=== PATIENT | female | born 1960 | race Caucasian/White ===

== ENCOUNTER 2016-07-15 17:42 | Emergency (ER) | payer BC ==
[~2016-07-15] VITALS: Ht 154.9 cm; Wt 74.0 kg
[~2016-07-15 17:42] MED LIST: ASPI81TA28 PO; ATV/1 PO; DULO60CA44 PO; GABA-113 PO; HYDR-5688 PO; LEVO100T7 PO; MULT-506 PO; NAPR220T40 PO; OXYC1TAB3 PO; PRAM0.129 PO; VTMD PO; ZOLP5TAB PO
[2016-07-15 17:57] VITALS: TEMP 36.9; Ht 154.9 cm; Wt 74.0 kg
[2016-07-15] MEDS ORDERED: SODIUM CHLORIDE 0.9% 1000ML 1,000 ML IV STA (18:18)
[2016-07-15] MEDS ORDERED: MoRPHine SULFATE 4 MG/ML 1 ML CARP\\VIAL IV STA (18:25)
[2016-07-15] MEDS ORDERED: POTA20TA16 PO (18:33)
[2016-07-15] MEDS ORDERED: TAMO20TA47 PO (18:33)
[2016-07-15] MEDS ORDERED: EFFSR75 PO (18:33)
--- NOTE | 2016-07-15 18:44 | DIAGNOSTIC IMAGING REPORT ---
CHEST ONE VIEW PORTABLE CLINICAL HISTORY: EVALUATE ALTERED MENTAL STATUS/WEAKNESS dyspnea COMPARISON STUDY: 10/06/2013 FINDINGS: Central catheter in the superior vena cava. Lungs are clear. Diaphragms smooth. No evidence for cardiac enlargement. IMPRESSION: No acute process Electronically signed by: Hasmukh Bhatia M.D. 07/15/2016 6:42 PM Dictated Date/Time: 07/15/2016 6:42 PM
[2016-07-15 19:15] LABS: BASO % 0.2 %; BASO ABS # 0.02 K/uL (0-0.2); COMPLETE YES; EOS % 0.7 %; HEMATOCRIT 42.7 % (37-47); IG% 0.2 %; LYMPH % 29.1 %; LYMPH ABS # 3.68 K/uL (1.2-3.4); MEAN CELL VOLUME 89.9 fL (80-100); MEAN CORPUSCULAR HEMOGLOBIN 30.7 pg (25-34); MEAN CORPUSCULAR HGB CONC 34.2 g/dl (32-36); MEAN PLATELET VOLUME 9.5 fL (7.4-10.4); MONO % 6.6 %; NEUT % 63.2 %; PLATELET COUNT 264 K/uL (130-400); RED BLOOD COUNT 4.75 M/uL (4.2-5.4); WHITE BLOOD COUNT 12.66 K/uL (4.8-10.8)
[2016-07-15 19:34] LABS: PROTHROMBIN TIME (PATIENT) 10.4 SECONDS (9.0-12.0)
[2016-07-15 19:35] LABS: ALT/SGPT 21 U/L (12-78); BLOOD UREA NITROGEN 15 mg/dl (7-18); BUN/CREATININE RATIO 21.3 (10-20); CALCIUM 8.9 mg/dl (8.5-10.1); CARBON DIOXIDE 18 mmol/L (21-32); CHLORIDE 112 mmol/L (98-107); CREATININE 0.68 mg/dl (0.60-1.20); GLUCOSE 92 mg/dl (70-99); MAGNESIUM 1.8 mg/dl (1.8-2.4); POTASSIUM 3.4 mmol/L (3.5-5.1); SODIUM 144 mmol/L (136-145)
[2016-07-15 19:43] LABS: ALKALINE PHOSPHATASE 89 U/L (45-117); AST/SGOT 14 U/L (15-37); CKMB/CK RATIO 1.5 (0-3.0)
--- NOTE | 2016-07-15 19:47 | DIAGNOSTIC IMAGING REPORT ---
HEAD CT NONCONTRAST CT DOSE: 767.83 mGy.cm HISTORY: Mental status change EVALUATE ALTERED MENTAL STATUS/WEAKNESS TECHNIQUE: Multiaxial CT images of the head were performed without the use of intravenous contrast. Comparison: None. Findings: The paranasal sinuses and mastoid air cells are clear. The calvarium and skull base are intact. The ventricles and sulci are within normal limits. There is no mass, hematoma, midline shift, or acute infarct. Impression: No acute intracranial abnormality. Electronically signed by: Hasmukh Bhatia M.D. 07/15/2016 7:46 PM Dictated Date/Time: 07/15/2016 7:45 PM
--- NOTE | 2016-07-15 20:39 | EMERGENCY ROOM VISIT NOTE ---
History Report prepared by Lucio: Karolina Gonzales Under the Supervision of: Dr. Ariel Obrien D.O. First contact with patient: 18:03 Chief Complaint: SHORTNESS OF BREATH Stated Complaint: SOB AND WEAKNESS, FAINTED YESTERDAY,REFERRED BY History of Present Illness The patient is a 55 year old female who presents to the Emergency Room with complaints of worsening shortness of breath for the past 2 days. She becomes short of breath with walking small distances in her home. She has also been feeling more weak than usual over the past 2 days. Yesterday the patient had an episode of syncope. Her grandson found her unconscious on the kitchen floor. Her helped her to the living room and she became lightheaded and dizzy with standing up. She was not evaluated after her fall yesterday. She denies any injury from her fall. The patient reports back pain, which is chronic and rates her pain as an 8/10 in severity. She notes loss of appetite as well as nausea and vomiting. The patient is currently taking an oral chemotherapy pill for ovarian cancer. She denies pain or swelling in her legs and black or bloody stools. She called her oncologist today with her symptoms and was advised to come to the ED for further evaluation. Source of History: patient Onset: 2 days ago Position: chest (respiratory) Symptom Intensity: 8/10 Quality: other (shortness of breath) Timing: worsening Modifying Factors (Worsening): exertion Associated Symptoms: + back pain, + nausea, + vomiting, + weakness, No hematochezia, No melena Review of Systems See HPI for pertinent positives & negatives. A total of 10 systems reviewed and were otherwise negative. Past Medical & Surgical Medical Problems: (1) Cancer of ovary (2) Chronic pain syndrome (3) Colon cancer (4) Diarrhea following gastrointestinal surgery (5) Elevated LFTs (6) Hypomagnesemia (7) Hypothyroidism (8) Ileostomy in place (9) Insomnia (10) Nausea (11) Ovarian cancer (12) Restless leg syndrome (13) SOB (shortness of breath) Surgical Problems: (1) H/O ileostomy Family History Diabetes mellitus FH: cancer FH: heart disease Hypertension Kidney stones Seizures Social History Smoking Status: Never Smoker Drug Use: none Marital Status: Housing Status: lives with family Occupation Status: employed Current/Historical Medications Scheduled Aspirin (Aspirin Ec), 81 MG PO DAILY Ergocalciferol (Vitamin D), 1 CAP PO WK Gabapentin (Neurontin), 300 MG PO TID Levothyroxine Sodium (Levothyroxine Sodium), 100 MCG PO DAILY Potassium Ext Rel (Klor-Con), 20 MEQ PO DAILY Pramipexole (Mirapex), 5 MG PO HS Tamoxifen (Nolvadex), 20 MG PO DAILY Venlafaxine Hcl (Effexor Extended Rel), 75 MG PO DAILY Zolpidem Tartrate (Ambien), 5 MG PO HS Scheduled PRN Hydrocodone/Acetaminophen 5MG/325MG ([place] 5MG/325MG), 1 TAB PO BID PRN for Pain Lorazepam (Ativan), 1 MG PO TID PRN for Anxiety Allergies Coded Allergies: Amoxicillin (Verified Allergy, Mild, HIVES, 02/13/16) Clavulanic Acid (Verified Allergy, Mild, HIVES, 02/13/16) Physical Exam Vital Signs Date Time Temp Pulse Resp B/P Pulse Ox O2 Delivery O2 Flow Rate FiO2 07/15/16 19:14 80 189/109 97 207/129 07/15/16 19:10 74 07/15/16 17:57 36.9 87 28 148/87 100 Physical Exam CONSTITUTIONAL/VITAL SIGNS: Reviewed / noted above. GENERAL: Non-toxic in appearance. INTEGUMENTARY: Warm, dry, and [place]. HEAD: Normocephalic. EYES: without scleral icterus or trauma. ENT/OROPHARYNX: clear and moist. LYMPHADENOPATHY/NECK: Is supple without lymphadenopathy or meningismus. RESPIRATORY: Lungs clear and equal. CARDIOVASCULAR: Regular rate and rhythm. GI/ABDOMEN: Soft and nontender. No organomegaly or pulsatile mass. No rebound or guarding. Normal bowel sounds. EXTREMITIES: Warm and well perfused. BACK: No CVA tenderness. NEUROLOGICAL: Intact without focal deficits. PSYCHIATRIC: normal affect. MUSCULOSKELETAL: Normally developed with good muscle tone. Medical Decision & Procedures ER Provider Diagnostic Interpretation: Radiology results as stated below per my review and radiologist interpretation: HEAD CT NONCONTRAST CT DOSE: 767.83 mGy.cm HISTORY: Mental status change EVALUATE ALTERED MENTAL STATUS/WEAKNESS TECHNIQUE: Multiaxial CT images of the head were performed without the use of intravenous contrast. Comparison: None. Findings: The paranasal sinuses and mastoid air cells are clear. The calvarium and skull base are intact. The ventricles and sulci are within normal limits. There is no mass, hematoma, midline shift, or acute infarct. Impression: No acute intracranial abnormality. Electronically signed by: Hasmukh Bhatia M.D. 07/15/2016 7:46 PM Dictated Date/Time: 07/15/2016 7:45 PM CHEST ONE VIEW PORTABLE CLINICAL HISTORY: EVALUATE ALTERED MENTAL STATUS/WEAKNESS dyspnea COMPARISON STUDY: 10/06/2013 FINDINGS: Central catheter in the superior vena cava. Lungs are clear. Diaphragms smooth. No evidence for cardiac enlargement. IMPRESSION: No acute process Electronically signed by: Hasmukh Bhatia M.D. 07/15/2016 6:42 PM Dictated Date/Time: 07/15/2016 6:42 PM Laboratory Results 07/15/16 19:05 Red Blood Count 4.75, Mean Corpuscular Volume 89.9, Mean Corpuscular Hemoglobin 30.7, Mean Corpuscular Hemoglobin Concent 34.2, Mean Platelet Volume 9.5, Neutrophils (%) (Auto) 63.2, Lymphocytes (%) (Auto) 29.1, Monocytes (%) (Auto) 6.6, Eosinophils (%) (Auto) 0.7, Basophils (%) (Auto) 0.2, Neutrophils # (Auto) 8.02, Lymphocytes # (Auto) 3.68, Monocytes # (Auto) 0.83, Eosinophils # (Auto) 0.09, Basophils # (Auto) 0.02 07/15/16 19:05 Test 07/15/16 19:05 White Blood Count 12.66 K/uL (4.8-10.8) Red Blood Count 4.75 M/uL (4.2-5.4) Hemoglobin 14.6 g/dL (12.0-16.0) Hematocrit 42.7 % (37-47) Mean Corpuscular Volume 89.9 fL (80-100) Mean Corpuscular Hemoglobin 30.7 pg (25-34) Mean Corpuscular Hemoglobin Concent 34.2 g/dl (32-36) Platelet Count 264 K/uL (130-400) Mean Platelet Volume 9.5 fL (7.4-10.4) Neutrophils (%) (Auto) 63.2 % Lymphocytes (%) (Auto) 29.1 % Monocytes (%) (Auto) 6.6 % Eosinophils (%) (Auto) 0.7 % Basophils (%) (Auto) 0.2 % Neutrophils # (Auto) 8.02 K/uL (1.4-6.5) Lymphocytes # (Auto) 3.68 K/uL (1.2-3.4) Monocytes # (Auto) 0.83 K/uL (0.11-0.59) Eosinophils # (Auto) 0.09 K/uL (0-0.5) Basophils # (Auto) 0.02 K/uL (0-0.2) RDW Standard Deviation 45.2 fL (36.4-46.3) RDW Coefficient of Variation 13.7 % (11.5-14.5) Immature Granulocyte % (Auto) 0.2 % Immature Granulocyte # (Auto) 0.02 K/uL (0.00-0.02) Prothrombin Time 10.4 SECONDS (9.0-12.0) Prothromb Time International Ratio 1.0 (0.9-1.1) Activated Partial Thromboplast Time 51.8 SECONDS (21.0-31.0) Partial Thromboplastin Ratio 2.0 D-Dimer 300 ug/L FEU (0-500) Anion Gap 14.0 mmol/L (3-11) Est Creatinine Clear Calc Drug Dose 86.0 ml/min Estimated GFR () 114.1 Estimated GFR (Non- 98.5 BUN/Creatinine Ratio 21.3 (10-20) Calcium Level 8.9 mg/dl (8.5-10.1) Magnesium Level 1.8 mg/dl (1.8-2.4) Total Bilirubin 0.4 mg/dl (0.2-1) Direct Bilirubin 0.1 mg/dl (0-0.2) Aspartate Amino Transf (AST/SGOT) 14 U/L (15-37) Alanine Aminotransferase (ALT/SGPT) 21 U/L (12-78) Alkaline Phosphatase 89 U/L (45-117) Total Creatine Kinase 133 U/L (26-192) Creatine Kinase MB 2.0 ng/ml (0.5-3.6) Creatine Kinase MB Ratio 1.5 (0-3.0) Troponin I < 0.015 ng/ml (0-0.045) Pro-B-Type Natriuretic Peptide 57 pg/ml (0-900) Total Protein 6.6 gm/dl (6.4-8.2) Albumin 3.4 gm/dl (3.4-5.0) Lipase 328 U/L (73-393) Thyroid Stimulating Hormone (TSH) 3.310 uIu/ml (0.300-4.500) Laboratory results as stated above per my review. Medications Administered Medications (Trade) Dose Ordered Sig/Emma Route Start Time Stop Time Status Last Admin Dose Admin Sodium Chloride (Nss 1000ml) 1,000 ml @ 999 mls/hr Q1H1M STAT IV 07/15/16 18:18 07/15/16 19:18 DC 07/15/16 18:18 999 MLS/HR Morphine Sulfate (MoRPHine SULFATE INJ) 4 mg NOW STAT IV 07/15/16 18:25 07/15/16 18:26 DC 07/15/16 19:14 4 MG ECG Indication: SOB/dyspnea Rate (beats per minute): 78 Rhythm: normal sinus Findings: no acute ischemic change, no ectopy ED Course 1803: Previous medical records were reviewed. The patient was evaluated in room B4B. A complete history and physical examination was performed. 1817: NSS 1000 ml @ 999 mls/hr IV 1824: Morphine sulfate 4 mg IV 2038: I reassessed the patient at this time. She is feeling better and resting comfortably. I discussed the results and treatment plan with the patient. I answered all pertaining questions that she had. She expressed understanding and verbalized agreement. The patient will be discharged home. Medical Decision Differential includes acute coronary syndrome, myocardial infarction, CVA, TIA, anemia, infection, pneumonia, UTI, pyelonephritis, poor nutrition, dehydration, electrolyte disturbance,hypoglycemia. This is a 55-year-old female who presents to the ED with a chief complaint of feeling weak and having fainted yesterday. The patient reports dyspnea on exertion as well as some generalized weakness. Further details listed above. Vital signs are stable. Physical exam essentially normal. Chest x-ray did not show acute disease. CT scan of the brain was negative for acute disease. CBC is unremarkable. D-dimer is negative. Troponin is negative. Complete metabolic panel was unremarkable. Lipase is negative. TSH is normal. The patient was treated with IV fluids and IV morphine for her chronic back pain. She was told results the test. She is felt to be stable for discharge. Impression Primary Impression: Dyspnea Additional Impression: Syncope Scribe Attestation The scribe's documentation has been prepared under my direction and personally reviewed by me in its entirety. I confirm that the note above accurately reflects all work, treatment, procedures, and medical decision making performed by me. Departure Information Dispostion Home / Self-Care Referrals Arun Chapman M.D. (PCP) Forms HOME CARE DOCUMENTATION FORM, IMPORTANT VISIT INFORMATION Patient Instructions My [facility], Syncope Additional Instructions Follow-up with your doctor for further care and evaluation in 1-2 days. Return to the emergency department for worsening or new symptoms or any concerns. You have been examined and treated today on an emergency basis only. This is not a substitute for, or an effort to provide, complete comprehensive medical care. It is impossible to recognize and treat all injuries or illnesses in a single emergency department visit. It is therefore important that you follow up closely with your doctor. Call as soon as possible for an appointment. Problem Qualifiers Primary Impression: Dyspnea Dyspnea type: unspecified Qualified Codes: R06.00 - Dyspnea, unspecified Additional Impression: Syncope Syncope type: unspecified Qualified Codes: R55 - Syncope and collapse
[2016-07-15 21:03] VITALS: BP 157/91; PULSE 80; O2SAT 99
== END 2016-07-15 21:03 | disposition home or self-care (01) ==
LOC: C.EDB 17:43
DX: R06.00 Dyspnea, unspecified (principal); R55 Syncope and collapse; G89.29 Other chronic pain; E03.9 Hypothyroidism, unspecified; Z93.2 Ileostomy status; Z79.82 Long term (current) use of aspirin

== ENCOUNTER → 2016-07-30 | Outpatient (CLI) | payer BC ==
[~2016-07-30] MED LIST changes: -DULO60CA44 PO; +EFFSR75 PO; -MULT-506 PO; -NAPR220T40 PO; -OXYC1TAB3 PO; +POTA20TA16 PO; +TAMO20TA47 PO
--- NOTE | 2016-07-30 12:21 | DIAGNOSTIC IMAGING REPORT ---
PET/CT HISTORY: Ovarian carcinoma OVARIAN CA TECHNIQUE: PET/CT was performed from the base of the skull through the pelvis following the intravenous administration of 15.2 mCi of F18-FDG. Non-contrast CT imaging was performed over the same range without breath-hold for attenuation correction of PET images and anatomic correlation, but not for primary interpretation as it is not of standard diagnostic quality. CT DOSE: COMPARISON: 01/28/2016 FINDINGS: HEAD AND NECK: There is no FDG-avid disease or significant lymphadenopathy in the imaged portions of the head and the neck. CHEST: There is no FDG-avid disease in the chest. There is no axillary, mediastinal, or hilar lymphadenopathy. There is no pleural or pericardial effusion. There is no air-space disease or suspicious lung nodule. ABDOMEN/PELVIS: Below the diaphragm, tracer is distributed physiologically in the gastrointestinal and genitourinary tracts. There is no significant lymphadenopathy and no FDG-avid disease. Stable postoperative changes. Foci of increased activity previously described have resolved MUSCULOSKELETAL: There is no FDG-avid or destructive bone lesion. IMPRESSION: There is no definite evidence of recurrent FDG-avid disease. Improved exam from the prior study. Electronically signed by: Hasmukh Bhatia M.D. 07/30/2016 12:19 PM Dictated Date/Time: 07/30/2016 12:11 PM
== END | disposition home or self-care (01) ==
LOC: C.PET 09:24
PROVIDERS: ATTEND Nurse Practitioner
DX: C56.9 Malignant neoplasm of unspecified ovary (principal)

== ENCOUNTER → 2016-08-26 | Outpatient (CLI) | payer BC ==
[~2016-08-26] MED LIST changes: -TAMO20TA47 PO; +TAMO20TA9 PO
== END | disposition home or self-care (01) ==
LOC: C.MAMM 13:38
PROVIDERS: ATTEND Nurse Practitioner
DX: M81.0 Age-related osteoporosis without current pathological fracture (principal); M85.851 Other specified disorders of bone density and structure, right thigh; M85.852 Other specified disorders of bone density and structure, left thigh; M85.88 Other specified disorders of bone density and structure, other site

== ENCOUNTER → 2017-03-05 | Outpatient (CLI) | payer BC ==
[~2017-03-05] MED LIST changes: +OPTIRAY 320 IV PRN
--- NOTE | 2017-03-05 15:09 | DIAGNOSTIC IMAGING REPORT ---
CHEST CT WITH CONTRAST HISTORY: Follow-up study in a patient with ovarian carcinoma OVARIAN CA TECHNIQUE: Multiaxial CT images of the chest were performed following the intravenous administration of contrast. A dose lowering technique was utilized adhering to the principles of ALARA. COMPARISON: PET CT 07/30/2016, thoracic spine CT 02/13/2016. FINDINGS: Thyroid is homogeneous. Bilateral breast calcifications are noted which appear round and possibly dystrophic. No pathologic adenopathy about the chest identified. Heart is normal in size without pericardial effusion. There is a right internal jugular [id number] catheter with distal tip terminating within the SVC, just superior to the cavoatrial junction. Mild atherosclerotic plaquing of the aorta without dissection or aneurysm. The opacified pulmonary arterial tree is unremarkable. Mild biapical pleural-parenchymal scarring. Subcentimeter granuloma of the right lung apex. No pneumothorax, pleural effusion or focal airspace consolidation. No suspicious pulmonary nodules or pulmonary masses identified to suggest metastatic disease. The central airways are patent. Prior cholecystectomy. Mild intrahepatic and extrahepatic biliary ductal dilation is likely secondary to postcholecystectomy state. Postsurgical changes of prior gastric bypass. No acute abnormality of the imaged upper abdomen. No suspicious lytic or blastic bony lesions to suggest metastasis. Multilevel endplate spurring of the spine. IMPRESSION: 1. No acute intrathoracic abnormality identified. 2. No evidence of metastatic disease within the chest. 3. No suspicious lytic or blastic lesions to suggest bony metastasis. Electronically signed by: Shaun Donohue M.D. 03/05/2017 3:07 PM Dictated Date/Time: 03/05/2017 3:01 PM
--- NOTE | 2017-03-05 15:17 | DIAGNOSTIC IMAGING REPORT ---
CT SCAN OF THE ABDOMEN AND PELVIS WITH IV CONTRAST CLINICAL HISTORY: Ovarian cancer. COMPARISON STUDY: Abdominal CT dated 02/13/2016. PET/CT dated 07/30/2016. TECHNIQUE: Following the IV administration of 9 cc of Optiray 320, CT scan of the abdomen and pelvis is performed from the lung bases to the proximal femora. Images are reviewed in the axial, sagittal, and coronal planes. IV contrast was administered without complication. A dose lowering technique was utilized adhering to the principles of ALARA. CT DOSE: 892.55 mGy.cm FINDINGS: Lung bases: The heart is normal in size and without pericardial effusion. The lung bases are clear. Liver: The contrast-enhanced liver is normal in size and contour. The liver demonstrates diffusely diminished attenuation consistent with hepatic steatosis. There is mild central intrahepatic biliary ductal dilatation. The hepatic veins and portal veins are patent. Gallbladder: Surgically absent noting clips in the gallbladder fossa. Spleen: Normal in size and attenuation. Pancreas: Unremarkable. Adrenal glands: Unremarkable. Kidneys: The contrast enhanced kidneys are normal in size and without hydronephrosis. The kidneys enhance symmetrically. Abdominal vasculature: The abdominal aorta is normal in course and caliber. Stomach and bowel: There is a small hiatal hernia. There are postoperative changes from left colon resection with colocolonic anastomosis. Small bowel anastomosis are also seen within the left upper quadrant of the ventral pelvis. Findings suggest previous gastric bypass surgery. No bowel obstruction is seen. There is moderate constipation. The appendix is not identified and reported surgically absent. Peritoneum and retroperitoneum: Findings suggest previous omentectomy. There is laxity of the ventral abdominal wall with protrusion of bowel loops. There is no intraperitoneal free air or abdominal ascites. There is a 2.0 x 1.3 cm lesion seen posterior to the left psoas muscle on axial image #218. This has decreased in size from 02/13/2016. No definite peritoneal implants are identified. Lymphadenopathy: Prominent mesenteric lymph nodes are nonspecific and measure up to 10 mm in short axis (axial image #168). Pelvic viscera: The bladder is normal as visualized. The uterus is surgically absent. No adnexal lesion is seen. Skeletal structures: The skeletal structures are osteopenic. No lytic or blastic lesions are seen. Mild to moderate lumbosacral spondylosis is observed. There is a mild superior endplate compression deformity of L3. There are healed right-sided rib fractures. IMPRESSION: 1. A lesion posterior to the left psoas muscle has modestly decreased in size from 02/13/2016. 2. No additional findings are concerning for metastatic disease in the abdomen or pelvis. 3. Prominent mesenteric lymph nodes measure up to 10 mm in short axis are nonspecific. 4. Extensive postoperative changes as above. No bowel obstruction is seen. 5. Moderate constipation. 6. Hepatic steatosis. 7. Additional findings as above. Electronically signed by: Howie Burgess M.D. 03/05/2017 3:16 PM Dictated Date/Time: 03/05/2017 3:06 PM
[2017-03-05 16:42] LABS: BASO % 0.2 %; BASO ABS # 0.02 K/uL (0-0.2); COMPLETE YES; HEMATOCRIT 35.8 % (37-47); IG% 0.2 %; LYMPH % 31.5 %; LYMPH ABS # 3.32 K/uL (1.2-3.4); MEAN CELL VOLUME 88.4 fL (80-100); MEAN CORPUSCULAR HEMOGLOBIN 28.9 pg (25-34); MEAN CORPUSCULAR HGB CONC 32.7 g/dl (32-36); MEAN PLATELET VOLUME 9.5 fL (7.4-10.4); MONO % 7.4 %; NEUT % 59.7 %; PLATELET COUNT 283 K/uL (130-400); RED BLOOD COUNT 4.05 M/uL (4.2-5.4); WHITE BLOOD COUNT 10.55 K/uL (4.8-10.8)
[2017-03-05 17:08] LABS: ALT/SGPT 26 U/L (12-78); BLOOD UREA NITROGEN 13 mg/dl (7-18); BUN/CREATININE RATIO 16.6 (10-20); CALCIUM 8.2 mg/dl (8.5-10.1); CARBON DIOXIDE 28 mmol/L (21-32); CHLORIDE 101 mmol/L (98-107); CREATININE 0.77 mg/dl (0.60-1.20); GLUCOSE 79 mg/dl (70-99); MAGNESIUM 1.5 mg/dl (1.8-2.4); POTASSIUM 2.9 mmol/L (3.5-5.1); SODIUM 136 mmol/L (136-145)
[2017-03-05 17:11] LABS: ALB/GLOB RATIO 0.9 (0.9-2); ALKALINE PHOSPHATASE 93 U/L (45-117); AST/SGOT 14 U/L (15-37)
== END | disposition home or self-care (01) ==
LOC: C.CTS 14:25
PROVIDERS: ATTEND Nurse Practitioner Family
DX: C56.9 Malignant neoplasm of unspecified ovary (principal); K59.00 Constipation, unspecified; K76.0 Fatty (change of) liver, not elsewhere classified; Z90.49 Acquired absence of other specified parts of digestive tract; Z90.710 Acquired absence of both cervix and uterus

== ENCOUNTER → 2017-09-07 | Outpatient (CLI) | payer BC ==
[~2017-09-07] MED LIST changes: +POTA-639 PO; -POTA20TA16 PO; +PRAM0.1212 PO; -PRAM0.129 PO
--- NOTE | 2017-09-07 16:10 | DIAGNOSTIC IMAGING REPORT ---
CT (CHEST) THORAX WITH CT DOSE: HISTORY: Ovarian carcinoma OVARIAN CA TECHNIQUE: Multiaxial CT images of the chest were performed following the intravenous administration of contrast. A dose lowering technique was utilized adhering to the principles of ALARA. COMPARISON: 03/05/2017 FINDINGS: Central catheter is in the superior vena cava. No significant hilar or mediastinal adenopathy. Lungs are considered clear. Prior gastroplasty. No significant pulmonary nodularity. At least 3. Old healed rib fractures. No lytic or blastic process. Mild degenerative change of the thoracic spine. IMPRESSION: No evidence for metastatic disease. No change from the prior study. The above report was generated using voice recognition software. It may contain grammatical, syntax or spelling errors. Electronically signed by: Hasmukh Bhatia M.D. 09/07/2017 4:09 PM Dictated Date/Time: 09/07/2017 4:07 PM
--- NOTE | 2017-09-07 16:18 | DIAGNOSTIC IMAGING REPORT ---
CT SCAN OF THE ABDOMEN AND PELVIS WITH IV CONTRAST CLINICAL HISTORY: Ovarian cancer. COMPARISON STUDY: Abdominal CT dated 03/05/2017. PET/CT dated 07/30/2016. TECHNIQUE: Following the IV administration of 95 cc of Optiray 320, CT scan of the abdomen and pelvis is performed from the lung bases to the proximal femora. Images are reviewed in the axial, sagittal, and coronal planes. IV contrast was administered without complication. A dose lowering technique was utilized adhering to the principles of ALARA. CT DOSE: 1142.01 mGy.cm FINDINGS: Lung bases: The heart is normal in size and without pericardial effusion. The lung bases are clear. Liver: The contrast-enhanced liver is normal in size and contour. The liver demonstrates diffusely diminished attenuation consistent with hepatic steatosis. There is mild central intrahepatic biliary ductal dilatation. The hepatic veins and portal veins are patent. Gallbladder: Surgically absent noting clips in the gallbladder fossa. Spleen: Normal in size and attenuation. Pancreas: Unremarkable. Adrenal glands: Unremarkable. Kidneys: The contrast enhanced kidneys demonstrate mild cortical atrophy and are without hydronephrosis. The kidneys enhance symmetrically. Abdominal vasculature: The abdominal aorta is normal in course and caliber. Stomach and bowel: There is a small hiatal hernia. There are postoperative changes from left colon resection with colocolonic anastomosis. A small bowel anastomosis are also seen within the left ventral pelvis. Findings also suggest previous gastric bypass surgery. No bowel obstruction is seen. There is moderate fecal retention in the remaining right colon. The appendix is not identified and reported surgically absent. Peritoneum and retroperitoneum: There is a midline scar with evidence of previous omentectomy. There is laxity of the ventral abdominal wall with protrusion of bowel loops. There is no intraperitoneal free air or abdominal ascites. There is unchanged appearance of a 2.0 x 1.4 cm lesion seen posterior to the left psoas muscle on axial image #211 (previously measured 2.0 x 1.3 cm). No definite peritoneal implants are identified. Lymphadenopathy: Prominent mesenteric lymph nodes are nonspecific and measure up to 10 mm in short axis (axial image #168). Pelvic viscera: Although decompressed, the bladder wall is thickened and hyperemic and there is pericystic inflammation. The uterus is surgically absent. No adnexal lesion is seen. Skeletal structures: The skeletal structures are osteopenic. No lytic or blastic lesions are seen. Mild to moderate lumbosacral spondylosis is observed. There is a mild chronic superior endplate compression deformity of L3. There are healed right-sided rib fractures. IMPRESSION: 1. There is no evidence of progressive metastatic disease as compared to 03/05/2017. No peritoneal implants are identified. 2. The lesion posterior to the left psoas muscle has not significantly changed from 03/05/2017. 3. The bladder wall is thickened and hyperemic and there is pericystic inflammation. Correlate clinically and with urinalysis for evidence of cystitis. 4. Postoperative findings as above. No bowel obstruction is seen. 5. Moderate fecal retention is noted in the remaining right colon. 6. Hepatic steatosis. 7. Additional findings as above. Electronically signed by: Howie Burgess M.D. 09/07/2017 4:16 PM Dictated Date/Time: 09/07/2017 4:07 PM
== END | disposition home or self-care (01) ==
LOC: C.CTS 15:24
PROVIDERS: ATTEND Nurse Practitioner Family
DX: C56.9 Malignant neoplasm of unspecified ovary (principal); R93.41 Abnormal radiologic findings on diagnostic imaging of renal pelvis, ureter, or bladder; K59.00 Constipation, unspecified; K76.0 Fatty (change of) liver, not elsewhere classified; Z98.890 Other specified postprocedural states

== ENCOUNTER → 2017-09-29 | Outpatient (CLI) | payer BC ==
[~2017-09-29] MED LIST changes: -OPTIRAY 320 IV PRN
[2017-09-29 13:32] LABS: BASO % 0.4 %; BASO ABS # 0.04 K/uL (0-0.2); EOS % 1.6 %; EOS ABS # 0.16 K/uL (0-0.5); HEMATOCRIT 35.2 % (37-47); HEMOGLOBIN 11.4 g/dL (12.0-16.0); IG# 0.03 K/uL (0.00-0.02); LYMPH % 31.6 %; LYMPH ABS # 3.09 K/uL (1.2-3.4); MEAN CELL VOLUME 79.8 fL (80-100); MEAN CORPUSCULAR HEMOGLOBIN 25.9 pg (25-34); MEAN PLATELET VOLUME 8.7 fL (7.4-10.4); MONO % 7.2 %; NEUT % 58.9 %; NEUT ABS # 5.77 K/uL (1.4-6.5); PLATELET COUNT 341 K/uL (130-400); RED CELL DISTRIBUTION WIDTH CV 16.6 % (11.5-14.5); RED CELL DISTRIBUTION WIDTH SD 48.7 fL (36.4-46.3); WHITE BLOOD COUNT 9.79 K/uL (4.8-10.8)
[2017-09-29 13:42] LABS: MEAN CORPUSCULAR HGB CONC 32.4 g/dl (32-36)
[2017-09-29 13:55] LABS: ALBUMIN 3.1 gm/dl (3.4-5.0); AST/SGOT 15 U/L (15-37); BLOOD UREA NITROGEN 9 mg/dl (7-18); CALCIUM 8.2 mg/dl (8.5-10.1); CARBON DIOXIDE 24 mmol/L (21-32); CREATININE 0.94 mg/dl (0.60-1.20); GLUCOSE 136 mg/dl (70-99); POTASSIUM 3.1 mmol/L (3.5-5.1); SODIUM 138 mmol/L (136-145)
[2017-09-29 14:10] LABS: ALKALINE PHOSPHATASE 118 U/L (45-117); ALT/SGPT 21 U/L (12-78); TOTAL PROTEIN 7.2 gm/dl (6.4-8.2)
== END | disposition home or self-care (01) ==
LOC: C.LABSPEC 13:18
PROVIDERS: ATTEND Nurse Practitioner Family
DX: C56.9 Malignant neoplasm of unspecified ovary (principal)

== ENCOUNTER 2019-09-09 19:09 | Inpatient (IN) ==
[2019-09-09] MEDS ORDERED: SODIUM CHLORIDE 0.9% 1000ML 1,000 ML IV ONE (19:41)
[2019-09-09] MEDS ORDERED: HYDROmorphone INJ 0.5 MG/0.5 ML SYR IV STA ×2 (19:41→20:36)
[2019-09-09 20:09] LABS: Basophils # (auto) 0.02 K/uL (0-0.2); Basophils % (auto) 0.2 %; Eosinophils # (auto) 0.06 K/uL (0-0.5); Eosinophils % (auto) 0.7 %; Hematocrit (blood only) 37.1 % (37-47); Hemoglobin 11.8 g/dL (12.0-16.0); Immature Granulocytes # (auto) 0.01 K/uL (0.00-0.02); Immature Granulocytes % (auto) 0.1 %; Lymphocytes # (auto) 1.42 K/uL (1.2-3.4); Lymphocytes % (auto) 16.9 %; Mean Corpuscular Hemoglobin 28.2 pg (25-34); Mean Corpuscular Hgb Conc 31.8 g/dL (32-36); Mean Corpuscular Volume 88.5 fL (80-100); Mean Platelet Volume 9.3 fL (7.4-10.4); Monocytes # (auto) 0.43 K/uL (0.11-0.59); Monocytes % (auto) 5.1 %; Neutrophils # (auto) 6.47 K/uL (1.4-6.5); Platelet Count 258 K/uL (130-400); RDW Coefficient of Variation 15.7 % (11.5-14.5); RDW Standard Deviation 50.4 fL (36.4-46.3); Red Blood Count 4.19 M/uL (4.2-5.4); White Blood Count 8.41 K/uL (4.8-10.8)
[2019-09-09 20:20] LABS: Partial Thromboplastin Time 27.3 Seconds (21.0-31.0); Prothrombin Time 10.5 Seconds (9.0-12.0)
[2019-09-09] MEDS: PANTOprazole 40 MG in DEXTROSE 5% 100 ML IV SCH (20:25)
[2019-09-09 20:26] LABS: Alanine Aminotransferase 66 U/L (12-78); Albumin Level 3.1 gm/dl (3.4-5.0); Aspartate Aminotransferase 28 U/L (15-37); Blood Urea Nitrogen 15 mg/dl (7-18); Calcium 8.7 mg/dl (8.5-10.1); Carbon Dioxide 31 mmol/L (21-32); Chloride 105 mmol/L (98-107); Est GFR (African American) 102.8; Est GFR (Non-African American) 88.7; Glucose 97 mg/dl (70-99); Lipase 72 U/L (73-393); Potassium 4.1 mmol/L (3.5-5.1); Sodium 140 mmol/L (136-145)
[2019-09-09 20:29] LABS: Alkaline Phosphatase 126 U/L (45-117); Bilirubin,Total 0.1 mg/dl (0.2-1); Globulin 3.2 gm/dl (2.5-4.0); Total Protein 6.3 gm/dl (6.4-8.2)
--- NOTE | 2019-09-09 20:33 | XRay Report ---
XR chest 1V portable CLINICAL HISTORY: dizziness COMPARISON STUDY: Chest radiograph October 31, 2018. FINDINGS: Lung volumes are normal. Lungs are clear. There is no pneumothorax or pleural effusion. Car diac size is normal. Mediastinal contours are normal. There is no evidence for pulmonary edema. Right internal jugular [id number] is unchanged in position. IMPRESSION: No acute cardiopulmonary findings. ACT 112: Negative or not required by law. Electronically signed by: Austin Davidson M.D. 09/09/2019 8:31 PM
[2019-09-09] MEDS ORDERED: HYDROmorphone INJ 1 MG/ML SYRINGE IV STA (22:12)
[2019-09-09] MEDS ORDERED: IOVERSOL 100ml IV PRN (22:21)
--- NOTE | 2019-09-09 22:44 | CT Scan Report ---
CT OF THE ABDOMEN AND PELVIS WITH CONTRAST CLINICAL HISTORY: Abdominal pain. Rectal bleed. History of ovarian cancer. COMPARISON STUDY: CT of the abdomen and pelvis July 23, 2018. TECHNIQUE: Following IV administration of 94 mL of Optiray-320, axial images of the abdomen and pelvi s were obtained from the lung bases to the proximal femurs. Images were reviewed in the axial, sagitt al, and coronal planes. IV contrast was administered without complication. Automated exposure contro l was utilized for the study. A dose lowering technique was utilized adhering to the principles of A TAMEKA. Oral contrast was administered. CT DOSE: 440.46 mGy.cm FINDINGS: Lung bases are unremarkable. No pneumatosis, free air or portal venous gas is present. Bili ame ductal dilatation is unchanged since CT of July 23, 2018 likely related to cholecystectomy. Libra ent is status post Caro-en-Y gastric bypass. There is no evidence for a bowel obstruction. Multiple b owel anastomoses are noted. Sensitivity for detection of mucosal lesions is diminished given CT techn ique but none are identified. Oral contrast reaches the colon. The adrenal glands, spleen and kidneys are unremarkable. There is no hydronephrosis. There is no peripancreatic infiltration. A few left up per quadrant abdominal wall nodules are noted. These have slightly increased in size since CT of 2018. The largest measures 2.3 x 1.4 cm. A previous measured 2.8 x 1.1 cm. A few tiny peritonea l nodules within the anterior abdomen are similar to prior exam. An irregular nodular focus along the lateral aspect of the left psoas muscle is similar to prior exam, measuring 2.8 cm. There is no asci neil. No suspicious osseous lesions are present. Major vasculature is patent. IMPRESSION: 1. No acute process within the abdomen or pelvis. Stable postoperative findings. No evidence for a clement wel obstruction. 2. Slight increase in size of the left anterior abdominal wall lesions which favor tumor implants. No significant change in several tiny peritoneal nodules and an irregular lesion along the lateral left psoas muscle. ACT 112: Negative or not required by law. Electronically signed by: Austin Davidson M.D. 09/09/2019 10:43 PM
[2019-09-09 22:54] LABS: Appearance Urine Clear (Clear); Bilirubin Urine Negative (Negative); Blood Urine Negative (Negative); Color Urine Yellow; Glucose Urine UA Negative (Negative); Ketones Urine Negative (Negative); Leukocyte Esterase Urine Negative (Negative); Nitrite Urine Negative (Negative); Protein Urine Negative (Negative); Specific Gravity Urine 1.013 (1.000-1.030); Urobilinogen Urine Negative (Negative); pH Urine 7.5 (4.5-7.5)
--- NOTE | 2019-09-09 23:22 | Emergency Department Note ---
History of Present Illness General Chief Complaint: Rectal Bleed Stated Complaint: blood in stool, headache, confusion Source: patient Mode of arrival: ambulatory Limitations: no limitations History of Present Illness Provider Complaint: abdominal pain and other (rectal bleeding) Onset (ago): 8 hour(s) Pain Consistency: constant Location: diffuse Radiation: none Migration to: no migration Severity: severe Maximum Pain Intensity: 7 Current Pain Intensity: 7 Quality: + cramping, + stabbing and + sharp Relieved By: + nothing Exacerbated By: + eating and + movement Context: + history of similar episodes Associated Symptoms: + nausea, + hematochezia and + anorexia Treatments prior to arrival: prescription analgesics This 59-year-old female patient with significant past medical history of metastatic ovarian cancer presents to the emergency department today, ambulatory, complaining of blood in her stool, lightheadedness, dizziness as well as shortness of breath. The patient states she had a bloody bowel movement at approximately 2 PM. At 5 PM, she developed lightheadedness, dizziness, shortness of breath. The patient does report a history of blood in her stool associated with a stomach ulcer approximately 1 year ago. She states she was taken to emergency surgery in [place] at that time. The patient states previously, the blood was a maroon color, but now she notes bright red blood in the stool. The patient does report lower and a diffuse abdominal pain which is similar nature to her normal pain, but seems to be worse today. The patient states 3 weeks ago, she was admitted to the cancer treatment Center [facility] in [place] for 4 to 5 days for a partial small bowel obstruction. The patient states she did not have any surgical intervention, denies any other treatment. She states the small bowel obstruction resolved itself. The patient does states she was straining to have a bowel movement earlier this evening. She has been taking her 10 mg oxycodone without relief of the pain. She denies any recent fever, nausea, vomiting, weakness, chest pain, illness, or other concerning symptoms. Home Medications Home Medications Medication Instructions Recorded Confirmed Type Cancer Medication 1 dose IM MONTHLY 07/23/18 09/09/19 History acetaminophen [Tylenol] 1,625 mg PO UD 07/23/18 09/09/19 History ergocalciferol (vitamin D2) 50,000 unit PO WK 07/23/18 09/09/19 History [Vitamin D2] lorazepam 1 mg SUBLINGUAL TID PRN 07/23/18 09/09/19 History magnesium oxide 400 mg PO QAM 07/23/18 09/09/19 History ondansetron HCl 8 mg PO TID PRN 07/23/18 09/09/19 History potassium chloride [Klor-Con] 20 meq PO QAM 07/23/18 09/09/19 History levothyroxine [Synthroid] 88 mcg PO DAILY 09/09/19 09/09/19 History linaclotide [Linzess] 145 mcg PO DAILY 09/09/19 09/09/19 History lisinopril 20 mg PO DAILY 09/09/19 09/09/19 History oxycodone 10 mg PO Q6H PRN 09/09/19 09/09/19 History pramipexole 0.125 mg PO TID 09/09/19 09/09/19 History rivaroxaban [Xarelto] 20 mg PO DAILY 09/09/19 09/09/19 History venlafaxine 150 mg PO DAILY 09/09/19 09/09/19 History Allergies Allergy/AdvReac Type Severity Reaction Status Date / Time amoxicillin Allergy Mild HIVES Verified 09/09/19 21:02 clavulanic acid Allergy Mild HIVES Verified 09/09/19 21:02 Past Med/Surg History Medical History Cancer of colon (Acute) Cancer of ovary (Chronic ~2006) Colitis (Acute) Hypomagnesemia (Chronic) Hypothyroidism (Chronic) 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) Pulmonary embolism (Acute) Restless leg syndrome (Chronic) SBO (small bowel obstruction) (Acute) Social History Preferred Language: Upper Sorbian marital status: Current Living Situation: Family current occupational status: unemployed Feels Safe at Home: Yes Smoking Status: Never smoker Review of Systems A total of 10 systems reviewed and were otherwise negative Physical Exam Vital Signs: Vital Signs - 24 hr 09/09/19 19:12 09/09/19 20:03 09/09/19 20:08 Temperature 37.0 C Temperature Source Oral Pulse Rate 105 H 94 H 99 H Pulse Rate [Bilate ral Apical] Pulse Rate from Sp O2 Sensor Respiratory Rate 16 18 18 Blood Pressure 120/70 133/81 Blood Pressure [Le ft Arm] Blood Pressure Estrellita n 86 90 Blood Pressure Estrellita n [Left Arm] Pulse Oximetry 96 Oxygen Delivery Me thod Room Air Sepsis Recent Feve r Within 48 Hours No Sepsis New/Unexpla ined Change in Men joe Status No Sepsis Action Take n by Nursing No Action Required 09/09/19 20:21 09/09/19 20:30 09/09/19 21:00 Temperature Temperature Source Pulse Rate 75 72 Pulse Rate [Bilate ral Apical] Pulse Rate from Sp O2 Sensor Respiratory Rate 19 17 Blood Pressure 145/95 H 150/83 H Blood Pressure [Le ft Arm] Blood Pressure Estrellita n 113 110 Blood Pressure Estrellita n [Left Arm] Pulse Oximetry 97 Oxygen Delivery Me thod Room Air Sepsis Recent Feve r Within 48 Hours Sepsis New/Unexpla ined Change in Men joe Status Sepsis Action Take n by Nursing 09/09/19 21:30 09/09/19 22:00 09/09/19 23:19 Temperature Temperature Source Pulse Rate 71 72 Pulse Rate [Bilate ral Apical] 85 Pulse Rate from Sp O2 Sensor 71 72 Respiratory Rate 16 17 20 Blood Pressure 117/77 126/43 L Blood Pressure [Le ft Arm] 142/69 H Blood Pressure Estrellita n 90 106 Blood Pressure Estrellita n [Left Arm] 93 Pulse Oximetry 93 94 96 Oxygen Delivery Me thod Room Air Sepsis Recent Feve r Within 48 Hours Sepsis New/Unexpla ined Change in Men joe Status Sepsis Action Take n by Nursing Physical Exam: VITALS: Vitals are noted on the nurse's note and reviewed by myself. Vital signs stable. GENERAL: This is a 59-year-old white female chronically ill-appearing, but in no acute distress, nondiaphoretic, well-developed well-nourished. SKIN: The skin was without rashes, erythema, edema, or bruising. There is no tenting of the skin. Capillary refill less than 2 seconds. HEAD: Normocephalic atraumatic. NECK: Supple without nuchal rigidity. No lymphadenopathy. No thyromegaly. Cervical spine is nontender. No JVD. HEART: Regular rate and rhythm without murmurs gallops or rubs. LUNGS: Clear to auscultation bilaterally without wheezes, rales or rhonchi. No retractions or accessory muscle use. ABDOMEN: Multiple surgical scars noted. Positive bowel sounds x 4. Normal tympanic percussion. Diffuse tenderness palpation. Abdomen is otherwise soft, without masses or organomegaly. No guarding or rebound tenderness. MUSCULOSKELETAL: No muscle atrophy, erythema, or edema noted. Full range of motion without joint tenderness in all extremities. No tenderness to palpation. Normal gait. Strength 5/5 throughout. NEURO: Patient was alert and oriented to person place and time. No focal neurological deficits. Course Course The patient was seen and evaluated as above. An order was placed for continuous cardiac monitoring. The monitor shows a n ormal sinus rhythm at a rate of 85 bpm. IV access obtained, labs drawn. Patient medicated with IV fluids and Dilaudid. Protonix drip initiated. Labs reviewed by myself. Patient requesting more pain medication. She was given a repeat dose of Dilaudid. Imaging performed and reviewed by myself and radiologist as noted. Patient is complaining of ongoing pain. She is requesting more pain medication. She was medicated with 1 mg IV Dilaudid. I discussed the case with my attending physician. I discussed the findings with the patient at bedside. I recommended admission for hematochezia and intractable pain. The patient was agreeable. I discussed the case with the assurance sourcing manager. The patient will be [facility] to [facility]. Please see hospitalist dictation regarding ongoing management care of this patient. Administered Medications Pantoprazole Sodium 40 mg/ (Dextrose) 100 mls @ 20 mls/hr IV Q5H [facility] Stop: 10/09/19 19:59 Last Infusion: 09/10/19 00:02 Dose: 0 mg/hr, 0 mls/hr Documented by: [id number] Admin: 09/09/19 20:25 Dose: 8 mg/hr, 20 mls/hr Documented by: [id number] Ioversol (Optiray 320 100ml) 94 ml IV ONCE PRN PRN Reason: Interaction Checking Stop: 09/13/19 22:20 Last Admin: 09/09/19 22:21 Dose: 94 ml Documented by: [id number] Discontinued Medications Hydromorphone HCl (Dilaudid) 0.5 mg IV NOW STA Stop: 09/09/19 19:42 Last Admin: 09/09/19 20:24 Dose: 0.5 mg Documented by: [id number] Hydromorphone HCl (Dilaudid) 0.5 mg IV NOW STA Stop: 09/09/19 20:37 Last Admin: 09/09/19 20:46 Dose: 0.5 mg Documented by: [id number] Hydromorphone HCl (Dilaudid) 1 mg IV NOW STA Stop: 09/09/19 22:13 Last Admin: 09/09/19 22:27 Dose: 1 mg Documented by: [id number] Sodium Chloride (Nss 1000ml) 1,000 mls @ 999 mls/hr IV .Q1H1M ONE Stop: 09/09/19 20:41 Last Infusion: 09/09/19 21:37 Dose: 0 mls/hr Documented by: [id number] Admin: 09/09/19 20:25 Dose: 999 mls/hr Documented by: [id number] Medical Decision Making Differential Diagnosis + peptic ulcer disease, + biliary pathology, + UTI, + obstruction, + mesenteric ischemia, + aortic pathology, + infections, + inflammatory bowel disease, + renal colic, + pelvic inflammatory disease (female), + abdominal pain, + calculus of kidney, + constipation, + diverticulitis, + endometriosis, + gastroenteritis, + pancreatitis and + small bowel obstruction Medical Records Attestation: I reviewed the patient's medical records. Home Medications Current Medication List: was personally reviewed by me Laboratory Data Attestation: I reviewed the patient's lab results. No leukocytosis, significant anemia, thrombocytopenia. Renal, hepatic function, and electrolytes without significant abnormality. Coags normal. Lipase 72. Ur inalysis negative for blood or infection. Result diagrams: 09/09/19 20:00 09/09/19 20:00 Lab Results 09/09/19 09/09/19 09/09/19 Range/Units 20:00 20:00 20:00 WBC 8.41 (4.8-10.8) K/uL RBC 4.19 L (4.2-5.4) M/uL Hgb 11.8 L (12.0-16.0) g/dL Hct 37.1 (37-47) % MCV 88.5 (80-100) fL MCH 28.2 (25-34) pg MCHC 31.8 L (32-36) g/dL RDW Std Deviation 50.4 H (36.4-46.3) fL RDW Coeff of Dilia 15.7 H (11.5-14.5) % Plt Count 258 (130-400) K/uL MPV 9.3 (7.4-10.4) fL Immature Gran % (Auto) 0.1 % Neut % (Auto) 77.0 % Lymph % (Auto) 16.9 % Wagoner % (Auto) 5.1 % Eos % (Auto) 0.7 % Baso % (Auto) 0.2 % Immature Gran # (Auto) 0.01 (0.00-0.02) K/uL Neut # (Auto) 6.47 (1.4-6.5) K/uL Lymph # (Auto) 1.42 (1.2-3.4) K/uL Wagoner # (Auto) 0.43 (0.11-0.59) K/uL Eos # (Auto) 0.06 (0-0.5) K/uL Baso # (Auto) 0.02 (0-0.2) K/uL PT 10.5 (9.0-12.0) Seconds INR 1.0 (0.9-1.1) APTT 27.3 (21.0-31.0) Seconds PTT Ratio 1.0 Sodium 140 (136-145) mmol/L Potassium 4.1 (3.5-5.1) mmol/L Chloride 105 (98-107) mmol/L Carbon Dioxide 31 (21-32) mmol/L Anion Gap 4.0 (3-11) BUN 15 (7-18) mg/dl Creatinine 0.74 (0.6-1.2) mg/dl Est Cr Clr Drug Dosing Not Reportable Est GFR ( Amer) 102.8 Est GFR (Non-Af Amer) 88.7 BUN/Creatinine Ratio 21.0 H (10-20) Glucose 97 (70-99) mg/dl Calcium 8.7 (8.5-10.1) mg/dl Total Bilirubin 0.1 L (0.2-1) mg/dl AST 28 (15-37) U/L ALT 66 (12-78) U/L Alkaline Phosphatase 126 H (45-117) U/L Total Protein 6.3 L (6.4-8.2) gm/dl Albumin 3.1 L (3.4-5.0) gm/dl Globulin 3.2 (2.5-4.0) gm/dl Albumin/Globulin Ratio 1.0 (0.9-2) Lipase 72 L (73-393) U/L Urine Color Urine Appearance (Clear) Urine pH (4.5-7.5) Ur Specific [place] (1.000-1.030) Urine Protein (Negative) Urine Glucose (UA) (Negative) Urine Ketones (Negative) Urine Blood (Negative) Urine Nitrite (Negative) Urine Bilirubin (Negative) Urine Urobilinogen (Negative) Ur Leukocyte Esterase (Negative) Blood Type Antibody Screen 09/09/19 09/09/19 Range/Units 20:00 21:40 WBC (4.8-10.8) K/uL RBC (4.2-5.4) M/uL Hgb (12.0-16.0) g/dL Hct (37-47) % MCV (80-100) fL MCH (25-34) pg MCHC (32-36) g/dL RDW Std Deviation (36.4-46.3) fL RDW Coeff of Dilia (11.5-14.5) % Plt Count (130-400) K/uL MPV (7.4-10.4) fL Immature Gran % (Auto) % Neut % (Auto) % Lymph % (Auto) % Wagoner % (Auto) % Eos % (Auto) % Baso % (Auto) % Immature Gran # (Auto) (0.00-0.02) K/uL Neut # (Auto) (1.4-6.5) K/uL Lymph # (Auto) (1.2-3.4) K/uL Wagoner # (Auto) (0.11-0.59) K/uL Eos # (Auto) (0-0.5) K/uL Baso # (Auto) (0-0.2) K/uL PT (9.0-12.0) Seconds INR (0.9-1.1) APTT (21.0-31.0) Seconds PTT Ratio Sodium (136-145) mmol/L Potassium (3.5-5.1) mmol/L Chloride (98-107) mmol/L Carbon Dioxide (21-32) mmol/L Anion Gap (3-11) BUN (7-18) mg/dl Creatinine (0.6-1.2) mg/dl Est Cr Clr Drug Dosing Est GFR ( Amer) Est GFR (Non-Af Amer) BUN/Creatinine Ratio (10-20) Glucose (70-99) mg/dl Calcium (8.5-10.1) mg/dl Total Bilirubin (0.2-1) mg/dl AST (15-37) U/L ALT (12-78) U/L Alkaline Phosphatase (45-117) U/L Total Protein (6.4-8.2) gm/dl Albumin (3.4-5.0) gm/dl Globulin (2.5-4.0) gm/dl Albumin/Globulin Ratio (0.9-2) Lipase (73-393) U/L Urine Color Yellow Urine Appearance Clear (Clear) Urine pH 7.5 (4.5-7.5) Ur Specific [place] 1.013 (1.000-1.030) Urine Protein Negative (Negative) Urine Glucose (UA) Negative (Negative) Urine Ketones Negative (Negative) Urine Blood Negative (Negative) Urine Nitrite Negative (Negative) Urine Bilirubin Negative (Negative) Urine Urobilinogen Negative (Negative) Ur Leukocyte Esterase Negative (Negative) Blood Type O Positive Antibody Screen NEGATIVE Imaging Data Radiologist's Impression: XR chest 1V portable CLINICAL HISTORY: dizziness COMPARISON STUDY: Chest radiograph October 31, 2018. FINDINGS: Lung volumes are normal. Lungs are clear. There is no pneumothorax or pleural effusion. Cardiac size is normal. Mediastinal contours are normal. There is no evidence for pulmonary edema. Right internal jugular [id number] is unchanged in position. IMPRESSION: No acute cardiopulmonary findings. ACT 112: Negative or not required by law. Electronically signed by: Austin Davidson M.D. 09/09/2019 8:[address] OF THE ABDOMEN AND PELVIS WITH CONTRAST CLINICAL HISTORY: Abdominal pain. Rectal bleed. History of ovarian cancer. COMPARISON STUDY: CT of the abdomen and pelvis July 23, 2018. TECHNIQUE: Following IV administration of 94 mL of Optiray-320, axial images of the abdomen and pelvis were obtained from the lung bases to the proximal femurs. Images were reviewed in the axial, sagittal, and coronal planes. IV contrast was administered without complication. Automated exposure control was utilized for the study. A dose lowering technique was utilized adhering to the principles of ALARA. Oral contrast was administered. CT DOSE: 440.46 mGy.cm FINDINGS: Lung bases are unremarkable. No pneumatosis, free air or portal venous gas is present. Biliary ductal dilatation is unchanged since CT of July 23, 2018 likely related to cholecystectomy. Patient is status post Caro-en-Y gastric bypass. There is no evidence for a bowel obstruction. Multiple bowel anastomoses are noted. Sensitivity for detection of mucosal lesions is diminished given CT technique but none are identified. Oral contrast reaches the colon. The adrenal glands, spleen and kidneys are unremarkable. There is no hydronephrosis. There is no peripancreatic infiltration. A few left upper quadrant abdominal wall nodules are noted. These have slightly increased in size since CT of July 23, 2018. The largest measures 2.3 x 1.4 cm. A previous measured 2.8 x 1.1 cm. A few tiny peritoneal nodules within the anterior abdomen are similar to prior exam. An irregular nodular focus along the lateral aspect of the left psoas muscle is similar to prior exam, measuring 2.8 cm. There is no ascites. No suspicious osseous lesions are present. Major vasculature is patent. IMPRESSION: 1. No acute process within the abdomen or pelvis. Stable postoperative findings. No evidence for a bowel obstruction. 2. Slight increase in size of the left anterior abdominal wall lesions which favor tumor implants. No significant change in several tiny peritoneal nodules and an irregular lesion along the lateral left psoas muscle. ACT 112: Negative or not required by law. Electronically signed by: Austin Davidson M.D. 09/09/2019 10:43 PM ECG Data Attestation: I personally reviewed and interpreted this ECG as follows: Indication: abdominal pain Rate (beats per minute): 82 Rhythm: normal sinus Findings: no ST depression, no T-wave inversion, no ST elevation, no acute ischemic change and no ectopy Comparison ECG Date: from (10/2018) Change: the following changes noted (Tachycardia has improved.) Blood Pressure Blood Pressure Findings: Elevated blood pressure Blood Pressure Disposition: elevated BP felt to be situational MDM Narrative This 59-year-old female patient presents the emergency department today due to abdominal pain, bloody bowel movement, lightheadedness, dizziness, dyspnea. Patient does have a history of gastric ulcer and GI bleed. She has required surgery. She is a chronically ill patient with metastatic ovarian cancer. She follows at cancer treatment centers in [place]. The patient was recently admitted to the hospital for a partial small bowel obstruction, but did not require any further surgical intervention. She is not vomiting. The patient a ppears well and stable throughout her stay in the department. There is no significant anemia noted on evaluation. Imaging including chest x-ray and abdominal CT scan negative for acute abnormality. The patient did require multiple rounds of narcotic analgesics while here in the department. Due to her severe pain, symptoms, and previous history, I do recommend inpatient admission for further evaluation and monitoring of her symptoms. The patient was agreeable. The patient will be admitted to the [facility] hospitalist service. Please see hospitalist dictation regarding ongoing management care of this patient. The chart was completed utilizing [employer] voice recognition software. Grammatical errors, random word insertions, pronoun errors, and incomplete sentences are an occasional consequence of this system due to software limitations, ambient noise, and hardware issues. Any formal questions or concerns about the content, text, or information contained within the body of this dictation should be directly addressed to the provider for clarification. Impression & Plan Hematochezia, Cancer of colon, Cancer of ovary, Abdominal pain, Dizziness Discharge Plan Visit Data Chief Complaint: Rectal Bleed Stated Complaint: blood in stool, headache, confusion ED Provider: Patrice De León ED Midlevel Provider: Cat Peguero Discharge Problem: Hematochezia, Cancer of colon, Cancer of ovary, Abdominal pain, Dizziness Patient Disposition: Home - Self-Care Condition: Good Forms Stand Alone Forms: My [facility], Important Visit Information Prescriptions Prescriptions: No Action acetaminophen [Tylenol] 325 mg Tablet 1,625 mg PO UD RF: 0 ondansetron HCl 8 mg tablet 8 mg PO TID PRN (Reason: Nausea) RF: 0 potassium chloride [Klor-Con] 20 mEq packet 20 meq PO QAM RF: 0 ergocalciferol (vitamin D2) [Vitamin D2] 50,000 unit Capsule 50,000 unit PO WK RF: 0 lorazepam 1 mg Tablet 1 mg SUBLINGUAL TID PRN (Reason: Anxiety) RF: 0 magnesium oxide 400 mg magnesium Tablet 400 mg PO QAM RF: 0 Cancer Medication 1 dose IM MONTHLY RF: 0 lisinopril 20 mg tablet 20 mg PO DAILY RF: 0 venlafaxine 150 mg capsule,extended release 24hr 150 mg PO DAILY RF: 0 levothyroxine [Synthroid] 88 mcg tablet 88 mcg PO DAILY RF: 0 pramipexole 0.125 mg tablet 0.125 mg PO TID RF: 0 Xarelto 20 mg tablet 20 mg PO DAILY RF: 0 Linzess 145 mcg capsule 145 mcg PO DAILY RF: 0 oxycodone 10 mg tablet 10 mg PO Q6H PRN (Reason: Pain) RF: 0 Referrals Referrals: Arun Chapman [Primary Care Provider] - Discharge Problem: Cancer of colon Qualifiers: Colon location: unspecified part of colon Qualified Code(s): C18.9 - Malignant neoplasm of colon, unspecified Cancer of ovary Qualifiers: Laterality: unspecified laterality Qualified Code(s): C56.9 - Malignant neoplasm of unspecified ovary Abdominal pain Qualifiers: Abdominal location: generalized Qualified Code(s): R10.84 - Generalized abdominal pain
--- NOTE | 2019-09-10 00:38 | History & Physical Report ---
Date of Service September 10, 2019 Assessment & Plan (1) Abdominal pain: Evangelina Lenz is a 59 year old woman with metastatic ovarian cancer who is here for hematochzia in setting of chronic anticoagulation therapy for Pulmonary embolism Hematochezia Willian red blood pre rectum Still present along with hemorrhoids on rectal exam Hemodynamically stable, hemoglobin of 11 CT abdomen pelvis negative GI consulted discussed with Dr. Barrera who will see her in am In meantime placed on protonix IV H and H q6h Holding anticoagulation npo 1/2 nss +20 meq K at 80 mls/hour 2 IV's MEtastatic Ovarian cancer Actively being treated for her metastatic disease by monthly injection from [facility] She has had a colonoscopy showing hemorrhoids and polyps but they were benign polyps CT scan showing evidence of widely locally metastatic disease in the abdomen Chronic pain Will continue patients home oxycodone with morphine IV for breakthrough pain Venous thromboembolic disease On life long xarelto for previous PE Holding for active bleeding Depression Continuing home venlafaxine Hypertension Will hold antihypertensive medication for now in this patient with active bleeding Hypothyroidism Continuing home synthroid DVT Ppx: SCD's up and to chair as tolerated F/E/N: 1/2 NSS +20 meq of k NPO Dispo: Admit for rectal bleeding consulted GI doctor rodger aware of patient and will see in am. Pain control as needed. 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 She is being treated with monthly injections through [facility] [place] Dr. Navarro. Hypothyroidism, pulmonary embolism, DVT's, and GI bleed from a gastric ulcer that was repaired last year. Patient has had a sheree en Y bypass procedure and a colectomy and formerly had a colostomy but now has had a anastamosis performed and has a continuous GI tract. She presents after a large bowel movement with bright red blood per rectum. She was feeling quite a lot of abdominal cramping which was relieved by her BM. Other than that she has felt in her usual state of health and the abdominal pain was quickly resolved. On arrival to ED her vital signs were WNL, her labwork was significant for anemia with hemoglobin of 11.8, from baseline over 14 a year ago. normal electrolytes and creatinine, negative lipase, negative urinalysis and positive Bright red blood on rectal exam. She does not have any remaining abdominal pain, she does have her chronic pain w hich right now is in her back and right arm. No shortness of breath, no chest pain, no vomiting, occasional chronic nausea, no urinary difficulty no hematuria, no leg pain. She is a non smoker, non drinker, uses marijuana occasionally once this week once six months ago no other drug use Allergies Allergy/AdvReac Type Severity Reaction Status Date / Time amoxicillin Allergy Mild HIVES Verified 09/09/19 21:02 clavulanic acid Allergy Mild HIVES Verified 09/09/19 21:02 Home Medications Home Medications Medication Instructions Recorded Confirmed Type Cancer Medication 1 dose IM MONTHLY 07/23/18 09/09/19 History acetaminophen [Tylenol] 1,625 mg PO UD 07/23/18 09/09/19 History ergocalciferol (vitamin D2) 50,000 unit PO WK 07/23/18 09/09/19 History [Vitamin D2] lorazepam 1 mg SUBLINGUAL TID PRN 07/23/18 09/09/19 History magnesium oxide 400 mg PO QAM 07/23/18 09/09/19 History ondansetron HCl 8 mg PO TID PRN 07/23/18 09/09/19 History potassium chloride [Klor-Con] 20 meq PO QAM 07/23/18 09/09/19 History levothyroxine [Synthroid] 88 mcg PO DAILY 09/09/19 09/09/19 History linaclotide [Linzess] 145 mcg PO DAILY 09/09/19 09/09/19 History lisinopril 20 mg PO DAILY 09/09/19 09/09/19 History oxycodone 10 mg PO Q6H PRN 09/09/19 09/09/19 History pramipexole 0.125 mg PO TID 09/09/19 09/09/19 History rivaroxaban [Xarelto] 20 mg PO DAILY 09/09/19 09/09/19 History venlafaxine 150 mg PO DAILY 09/09/19 09/09/19 History Past Med/Surg History Medical History Cancer of colon (Acute) Cancer of ovary (Chronic ~2007) Colitis (Acute) Hypomagnesemia (Chronic) Hypothyroidism (Chronic) 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) Pulmonary embolism (Acute) Restless leg syndrome (Chronic) SBO (small bowel obstruction) (Acute) Surgical History H/O ileostomy (Resolved) Hx of gastric bypass Family History Other Cancer Diabetes Gallbladder disease Heart disease Hypertension Social History Preferred Language: Gabonese Communication Ability: Effective 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 Beliefs That Will Affect Care: None marital status: Current Living Situation: Spouse current occupational status: unemployed Other Information That Helps Us Care for You: No Feels Safe at Home: Yes Safety Concerns: Feels Safe At This Time Smoking Status: Never smoker Hx Alcohol Use: No Hx Substance Use: No Review of Systems Review of Systems: All systems reviewed & are unremarkable except as noted in HPI & below Physical Exam Constitutional: WD/WN, vitals as above Eyes: PERRL, conjunctivae normal, anicteric sclerae ENMT: external ear and nose normal, oropharynx normal Respiratory: normal respiratory effort, lungs clear to auscultation Cardiovascular: RRR, no murmur, no edema Gastrointestinal (Abdomen): Patient with multiple surgical scars across abdomen, hyperactive bowel sounds in all four quadrants, minimal abdominal tenderness, without guarding, no rebound tenderness Skin: no rashes, warm and dry Results & Data Results & Data ([facility]) Vital Signs (Past 12 Hours) Vital Signs Temp Pulse Pulse Resp BP BP Pulse Ox 09/10/19 00:17 77 20 139/75 93 09/09/19 23:19 85 20 142/69 H 96 09/09/19 22:00 72 17 126/43 L 94 09/09/19 21:30 71 16 117/77 93 09/09/19 21:00 72 17 150/83 H 09/09/19 20:30 75 19 145/95 H 09/09/19 20:21 97 09/09/19 20:08 99 H 18 09/09/19 20:03 94 H 18 133/81 09/09/19 19:12 37.0 C 105 H 16 120/70 96 Supervising Physician Co-Signing Physician Notes Attending addendum: I have physically seen this patient, have supervised the medical residents activities, and agree with the H&P unless as otherwise noted. Assessment and Plan: Hematochezia- NPO Hold Xarelto, will not reverse at this time. Serial H&H's Bleeding may be hemorrhoidal. 1/2 NSS + KCl 20 mEq at 80 mils per hour. Protonix IV Consult gastroenterology Dr. Barrera Metastatic ovarian cancer- Colonoscopies performed in [place] showing hemorrhoids and benign polyps. CT scan does not show any active source of bleeding. Remaining work-up per gastroenterology If additional bleeding this evening, would reverse Xarelto. Remainder of orders and notations as noted. Resident Activity Tracking Resident Involvement: Resident Care Provided Care Provided: Adult Hospital Medicine (1) Abdominal pain Abdominal location: generalized Qualified Code(s): R10.84 - Generalized abdominal pain
[2019-09-10] MEDS: MoRPHine SULFATE 2 MG/ML CARP IV PRN ×7 (01:00→22:24)
[2019-09-10] MEDS ORDERED: POLYETHYLENE (MIRALAX) 17 GM PACK PO PRN (01:56)
[2019-09-10] MEDS ORDERED: ONDANSETRON INJ 2 MG/ML 2 ML VIAL IV PRN (01:56)
[2019-09-10] MEDS ORDERED: ACETAMINOPHEN 325 MG TAB PO PRN (01:56)
[2019-09-10] MEDS ORDERED: ONDANSETRON 8MG OD TAB PO PRN (02:19)
[2019-09-10] MEDS: NSS + 20MEQ KCL 20 MEQ/1,000 ML BAG IV SCH ×2 (02:27→14:01)
[2019-09-10] MEDS: PANTOprazole 40 MG in DEXTROSE 5% 100 ML IV SCH ×5 (02:27→22:54)
[2019-09-10] MEDS: LORazepam 1 MG TAB PO PRN ×2 (02:40→21:05)
[2019-09-10] MEDS: OXYCODONE HCL IR 5 MG TAB (IMMEDIATE RELEASE) PO PRN ×4 (02:40→22:57)
[2019-09-10] MEDS ORDERED: HEPARIN 100 UNIT/ML 5ML FLUSH FLUSH PRN (03:42)
[2019-09-10 05:10] LABS: Basophils # (auto) 0.02 K/uL (0-0.2); Basophils % (auto) 0.3 %; Eosinophils # (auto) 0.16 K/uL (0-0.5); Eosinophils % (auto) 2.2 %; Hemoglobin 10.7 g/dL (12.0-16.0); Immature Granulocytes # (auto) 0.01 K/uL (0.00-0.02); Immature Granulocytes % (auto) 0.1 %; Lymphocytes # (auto) 1.95 K/uL (1.2-3.4); Lymphocytes % (auto) 27.3 %; Mean Corpuscular Hgb Conc 31.5 g/dL (32-36); Monocytes # (auto) 0.76 K/uL (0.11-0.59); Monocytes % (auto) 10.6 %; Neutrophils # (auto) 4.25 K/uL (1.4-6.5); Neutrophils % (auto) 59.5 %; Platelet Count 241 K/uL (130-400); RDW Coefficient of Variation 15.6 % (11.5-14.5); RDW Standard Deviation 50.2 fL (36.4-46.3); Red Blood Count 3.82 M/uL (4.2-5.4); White Blood Count 7.15 K/uL (4.8-10.8)
[2019-09-10 05:38] LABS: BUN Creatinine Ratio 18.5 (10-20); Calcium 7.9 mg/dl (8.5-10.1); Creatinine Clr Calc Pharmacy 85.6 ml/min; Est GFR (African American) 112.1; Est GFR (Non-African American) 96.7; Potassium 3.6 mmol/L (3.5-5.1)
[2019-09-10] MEDS: LEVOTHYROXINE SODIUM 88 MCG TABLET PO SCH ×2 (05:53→11:33)
--- NOTE | 2019-09-10 07:56 | Electrocardiogram Report ---
Test Reason : Blood Pressure : / mmHG Vent. Rate : 082 BPM Atrial Rate : 082 BPM P-R Int : 150 ms QRS Dur : 080 ms QT Int : 366 ms P-R-T Axes : 054 034 044 degrees QTc Int : 427 ms Normal sinus rhythm Normal ECG When compared with ECG of 31-OCT-2018 02:47, No significant change Confirmed by Thompson Mares ([id number]) on 09/10/2019 7:56:18 AM Referred By: REFERRED SELF Confirmed By:Thompson Mares
--- NOTE | 2019-09-10 11:17 | Gastrointestinal Consultation ---
Date of Consultation September 10, 2019 Assessment & Plan (1) Hematochezia: Most likely lower GI source in absence of hemodynamic changes but cannot entirely rule out UGI source with rapid transit. Told patient to save any stools for nurse. If she has a stool and it is brown then definitely LGI source and perhaps hemorrhoidal. If not stools or next stool red then prep for EGD/ colonscopy on thursday. Would like Xarelto to be out of her system miminumm of 48 hours and no stools since 1700 so no active bleeding. PPI for now in case this is UGI source. Follow H and H and transfuse prn. hx of gastric ulcer----EGD thursday. hemorrhoids on rectal History of Present Illness Reason for Consultation: Hematochezia Requesting Physician: Dr Jose Riojas Attending Physician: Cortez Barbosa, DO History of Present Illness CC rectal bleeding HPI Pt with ovarian cancer with mets to stomach, colon, abd wall on chemo injections every [facility] [place] presents with rectal bleeding. She has hx of gastric bypass also. Colonosccopy done by DR Owens 03/2018 reviewed noted 3 mm cecal polyp path tubular adenoma and hemorrhoids. About one year ago she presented to ER with GI bleeding profuse and transferred to [place]. She states they did EGD and cauterized bleeding ulcer. Do not have report so unclear if this was benign or malignant looking. She was on Protonix for couple months and stopped. She is on Xarelto for hx of pulmonary embolus. She states she had bright red rectal bleeding (in contrast to darker a year ago) yesterday and had about 4 bms last one at 1700. Last Hgb in this chart 9.3 10/31/18 but apparently has normal baseline. On admit had hgb 11.8 and this am 10.7 with no bms since admit. Some chronic abd pain from previous abdominal surgeries which include the gastric bypass and colon resection and reversal. CT a/p on admit bile duct dilatation c/w post cholecytectomy, gastric bypass, mulitple bowel anastomoses, LUQ wall nodules slightly increased versus 07/2018, psoas muscle focus and peritoneal nodules same size. LFTS ok excecpt alk phos 126 and lipase normal. She has chronic musculoskeletal pain. Allergies Allergy/AdvReac Type Severity Reaction Status Date / Time amoxicillin Allergy Mild HIVES Verified 09/09/19 21:02 clavulanic acid Allergy Mild HIVES Verified 09/09/19 21:02 Home Medications Home Medications Medication Instructions Recorded Confirmed Type Cancer Medication 1 dose IM MONTHLY 07/23/18 09/09/19 History acetaminophen [Tylenol] 1,625 mg PO UD 07/23/18 09/09/19 History ergocalciferol (vitamin D2) 50,000 unit PO WK 07/23/18 09/09/19 History [Vitamin D2] lorazepam 1 mg SUBLINGUAL TID PRN 07/23/18 09/09/19 History magnesium oxide 400 mg PO QAM 07/23/18 09/09/19 History ondansetron HCl 8 mg PO TID PRN 07/23/18 09/09/19 History potassium chloride [Klor-Con] 20 meq PO QAM 07/23/18 09/09/19 History levothyroxine [Synthroid] 88 mcg PO DAILY 09/09/19 09/09/19 History linaclotide [Linzess] 145 mcg PO DAILY 09/09/19 09/09/19 History lisinopril 20 mg PO DAILY 09/09/19 09/09/19 History oxycodone 10 mg PO Q6H PRN 09/09/19 09/09/19 History pramipexole 0.125 mg PO TID 09/09/19 09/09/19 History rivaroxaban [Xarelto] 20 mg PO DAILY 09/09/19 09/09/19 History venlafaxine 150 mg PO DAILY 09/09/19 09/09/19 History Patient History Medical History Cancer of colon (Acute) Cancer of ovary (Chronic ~2006) Colitis (Acute) Hypomagnesemia (Chronic) Hypothyroidism (Chronic) 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) Pulmonary embolism (Acute) Restless leg syndrome (Chronic) SBO (small bowel obstruction) (Acute) Surgical History H/O ileostomy (Resolved) Hx of gastric bypass Family History Other Cancer Diabetes Gallbladder disease Heart disease Hypertension Social History Preferred Language: Croatian Communication Ability: Effective 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 Beliefs That Will Affect Care: None marital status: Current Living Situation: Spouse current occupational status: unemployed Other Information That Helps Us Care for You: No Feels Safe at Home: Yes Safety Concerns: Feels Safe At This Time Smoking Status: Never smoker Hx Alcohol Use: No Hx Substance Use: No Review of Systems Review of Systems: All systems reviewed & are unremarkable except as noted in HPI & below Physical Exam Constitutional: WD/WN, vitals as above Eyes: PERRL, conjunctivae normal, anicteric sclerae ENMT: external ear and nose normal, oropharynx normal Neck: normal visual inspection and trachea midline Respiratory: normal respiratory effort, lungs clear to auscultation Cardiovascular: RRR, no murmur, no edema Gastrointestinal (Abdomen): pos bs, soft, some point tenderness with guarding right mid abdomen, no rebound, multiple scars noted. physical with nurse present including rectal which demonstrated internal hemorrhoids, no obvious mass, trace red on glove. Skin: normal turgor Neurologic: PERRL, EOMI, accommodation nl, no face palsy, no dysarthria Psychiatric: A+Ox3, euthymic affect Results & Data ([facility]) Vital Signs (Past 12 Hours) Vital Signs Temp Pulse Pulse Pulse Resp BP Pulse Ox 09/10/19 08:00 63 09/10/19 01:40 37 C 63 16 115/70 93 09/10/19 01:33 83 20 118/65 94 09/10/19 01:07 71 20 123/53 L 94 09/10/19 00:17 77 20 139/75 93 09/09/19 23:19 85 20 142/69 H 96
[2019-09-10] MEDS: VENLAFAXINE HCL XR 150 MG CAPXR PO SCH (11:33)
[2019-09-10] MEDS: lisinopriL 20 MG TAB PO SCH (11:34)
[2019-09-10] MEDS: MAGNESIUM OXIDE 400 MG TAB PO SCH (11:34)
[2019-09-10] MEDS: PRAMIPEXOLE DIHYDROCHLO 0.25 MG TAB PO SCH ×3 (11:35→21:03)
[2019-09-10] MEDS: LINACLOTIDE 72 MCG CAPSULE PO SCH (11:36)
[2019-09-10] MEDS: POTASSIUM CHLORIDE PWD 20 MEQ PACK PO SCH (11:36)
[2019-09-10 13:02] LABS: Hematocrit (blood only) 35.2 % (37-47); Hemoglobin 11.1 g/dL (12.0-16.0)
[2019-09-10] MEDS ORDERED: DiphenhydrAMINE HCL 50 MG/ML VIAL IV STA (13:13)
--- NOTE | 2019-09-10 14:35 | Hospitalist Progress Note ---
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 Barrera, appreciate his input, plan for EGD and colonoscopy on Thursday holding anticoagulation reviewed labs, Hb stable at 11.1, actually going up Review of Systems Review of Systems: All systems reviewed & are unremarkable except as noted in HPI & below Respiratory: no cough and no dyspnea Cardiovascular: no chest pain and no edema Gastrointestinal: no abdominal pain, no nausea and no vomiting Physical Exam Constitutional: WD/WN, vitals as above Eyes: PERRL, conjunctivae normal, anicteric sclerae ENMT: external ear and nose normal, oropharynx normal Neck: trachea midline, no thyromegaly Respiratory: normal respiratory effort, lungs clear to auscultation Cardiovascular: RRR, no murmur, no edema Gastrointestinal (Abdomen): normal bowel sounds, soft, nontender, no hepatosplenomegaly Musculoskeletal: no cyanosis or clubbing, extremities motor strength 5/5 Skin: no rashes, warm and dry Neurologic: patellar DTR's 2+ bilat, sensation intact and PERRL, EOMI, accommodation nl, no face palsy, no dysarthria Psychiatric: A+Ox3, euthymic affect Lymphatic: no cervical or axillary lymphadenopathy Results & Data Results & Data ([facility]) Vital Signs (Past 12 Hours) Vital Signs Temp Pulse Pulse Resp BP Pulse Ox 09/10/19 13:18 36.8 C 70 16 141/77 H 96 09/10/19 08:00 36.8 C 63 72 17 144/75 H Laboratory Results Laboratory Results - last 24 hr 09/09/19 09/09/19 09/09/19 20:00 20:00 20:00 WBC 8.41 RBC 4.19 L Hgb 11.8 L Hct 37.1 MCV 88.5 MCH 28.2 MCHC 31.8 L RDW Std Deviation 50.4 H RDW Coeff of Dilia 15.7 H Plt Count 258 MPV 9.3 Immature Gran % (Auto) 0.1 Neut % (Auto) 77.0 Lymph % (Auto) 16.9 [place] % (Auto) 5.1 Eos % (Auto) 0.7 Baso % (Auto) 0.2 Immature Gran # (Auto) 0.01 Neut # (Auto) 6.47 Lymph # (Auto) 1.42 [place] # (Auto) 0.43 Eos # (Auto) 0.06 Baso # (Auto) 0.02 PT 10.5 INR 1.0 APTT 27.3 PTT Ratio 1.0 Sodium 140 Potassium 4.1 Chloride 105 Carbon Dioxide 31 Anion Gap 4.0 BUN 15 Creatinine 0.74 Est Cr Clr Drug Dosing Not Reportable Est GFR ( Amer) 102.8 Est GFR (Non-Af Amer) 88.7 BUN/Creatinine Ratio 21.0 H Glucose 97 Calcium 8.7 Total Bilirubin 0.1 L AST 28 ALT 66 Alkaline Phosphatase 126 H Total Protein 6.3 L Albumin 3.1 L Globulin 3.2 Albumin/Globulin Ratio 1.0 Lipase 72 L Urine Color Urine Appearance Urine pH Ur Specific [place] Urine Protein Urine Glucose (UA) Urine Ketones Urine Blood Urine Nitrite Urine Bilirubin Urine Urobilinogen Ur Leukocyte Esterase Nasal Screen MRSA (PCR) Blood Type Antibody Screen 09/09/19 09/09/19 09/10/19 20:00 21:40 02:00 WBC RBC Hgb Hct MCV MCH MCHC RDW Std Deviation RDW Coeff of Dilia Plt Count MPV Immature Gran % (Auto) Neut % (Auto) Lymph % (Auto) [place] % (Auto) Eos % (Auto) Baso % (Auto) Immature Gran # (Auto) Neut # (Auto) Lymph # (Auto) [place] # (Auto) Eos # (Auto) Baso # (Auto) PT INR APTT PTT Ratio Sodium Potassium Chloride Carbon Dioxide Anion Gap BUN Creatinine Est Cr Clr Drug Dosing Est GFR ( Amer) Est GFR (Non-Af Amer) BUN/Creatinine Ratio Glucose Calcium Total Bilirubin AST ALT Alkaline Phosphatase Total Protein Albumin Globulin Albumin/Globulin Ratio Lipase Urine Color Yellow Urine Appearance Clear Urine pH 7.5 Ur Specific [place] 1.013 Urine Protein Negative Urine Glucose (UA) Negative Urine Ketones Negative Urine Blood Negative Urine Nitrite Negative Urine Bilirubin Negative Urine Urobilinogen Negative Ur Leukocyte Esterase Negative Nasal Screen MRSA (PCR) Negative Blood Type O Positive Antibody Screen NEGATIVE 09/10/19 09/10/19 09/10/19 04:03 04:03 12:55 WBC 7.15 RBC 3.82 L Hgb 10.7 L 11.1 L Hct 34.0 L 35.2 L MCV 89.0 MCH 28.0 MCHC 31.5 L RDW Std Deviation 50.2 H RDW Coeff of Dilia 15.6 H Plt Count 241 MPV 10.0 Immature Gran % (Auto) 0.1 Neut % (Auto) 59.5 Lymph % (Auto) 27.3 [place] % (Auto) 10.6 Eos % (Auto) 2.2 Baso % (Auto) 0.3 Immature Gran # (Auto) 0.01 Neut # (Auto) 4.25 Lymph # (Auto) 1.95 [place] # (Auto) 0.76 H Eos # (Auto) 0.16 Baso # (Auto) 0.02 PT INR APTT PTT Ratio Sodium 142 Potassium 3.6 Chloride 107 Carbon Dioxide 31 Anion Gap 4.0 BUN 12 Creatinine 0.66 Est Cr Clr Drug Dosing 85.6 Est GFR ( Amer) 112.1 Est GFR (Non-Af Amer) 96.7 BUN/Creatinine Ratio 18.5 Glucose 85 Calcium 7.9 L Total Bilirubin AST ALT Alkaline Phosphatase Total Protein Albumin Globulin Albumin/Globulin Ratio Lipase Urine Color Urine Appearance Urine pH Ur Specific [place] Urine Protein Urine Glucose (UA) Urine Ketones Urine Blood Urine Nitrite Urine Bilirubin Urine Urobilinogen Ur Leukocyte Esterase Nasal Screen MRSA (PCR) Blood Type Antibody Screen Medications Administered Current Inpatient Medications Acetaminophen (Tylenol) 650 mg PO Q6H PRN PRN Reason: Pain or Fever Stop: 10/10/19 01:55 Ergocalciferol (Vitamin D2) 50,000 units PO Mo@0900 LEO Stop: 10/12/19 08:59 Heparin Sodium (Porcine) (Heparin Sod 100 Unit/Ml Flush) 5 ml FLUSH PRN PRN PRN Reason: Flush Stop: 10/10/19 03:44 Pantoprazole Sodium 40 mg/ (Dextrose) 100 mls @ 20 mls/hr IV Q5H [facility] Stop: 10/09/19 19:59 Last Admin: 09/10/19 12:41 Dose: 20 mg/hr, 50 mls/hr Documented by: Potassium Chloride/Sodium Chloride (Normal Saline W/20 Meq Kcl) 20 meq in 1,000 mls @ 80 mls/hr IV .[id number] [facility] Stop: 10/10/19 01:55 Last Admin: 09/10/19 14:01 Dose: 80 mls/hr Documented by: Levothyroxine Sodium (Synthroid) 88 mcg PO DAILYBB [facility] Stop: 10/10/19 06:29 Last Admin: 09/10/19 11:33 Dose: 88 mcg Documented by: Linaclotide (Linzess) 144 mcg PO DAILY [facility] Stop: 10/10/19 08:59 Last Admin: 09/10/19 11:36 Dose: 144 mcg Documented by: Lisinopril (Zestril) 20 mg PO DAILY [facility] Stop: 10/10/19 08:59 Last Admin: 09/10/19 11:34 Dose: 20 mg Documented by: Lorazepam (Ativan) 1 mg PO TID PRN PRN Reason: Anxiety Stop: 10/10/19 02:15 Last Admin: 09/10/19 02:40 Dose: 1 mg Documented by: Magnesium Oxide (Mag-Ox) 400 mg PO QAM [facility] Stop: 10/10/19 08:59 Last Admin: 09/10/19 11:34 Dose: 400 mg Documented by: Morphine Sulfate (Morphine Sulfate) 2 mg IV Q3H PRN PRN Reason: Pain Stop: 09/24/19 00:30 Last Admin: 09/10/19 14:01 Dose: 2 mg Documented by: Ondansetron HCl (Zofran Odt) 8 mg PO TID PRN PRN Reason: Nausea Stop: 10/10/19 02:18 Ondansetron HCl (Zofran) 4 mg IV Q6H PRN PRN Reason: Nausea Stop: 10/10/19 01:55 Oxycodone HCl (Roxicodone Immediate Rel) 10 mg PO Q6H PRN PRN Reason: Pain Stop: 09/24/19 01:55 Last Admin: 09/10/19 09:40 Dose: 10 mg Documented by: Polyethylene Glycol (Miralax Powder Packet) 17 gm PO DAILY PRN PRN Reason: Constipation Stop: 10/10/19 01:55 Potassium Chloride (Klor-Con Pwd) 20 meq PO QAM [facility] Stop: 10/10/19 08:59 Last Admin: 09/10/19 11:36 Dose: 20 meq Documented by: Pramipexole Dihydrochloride (Mirapex) 0.125 mg PO TID [facility] Stop: 10/10/19 08:59 Last Admin: 09/10/19 14:01 Dose: 0.125 mg Documented by: Venlafaxine HCl (Effexor Extended Release) 150 mg PO DAILY [facility] Stop: 10/10/19 08:59 Last Admin: 09/10/19 11:33 Dose: 150 mg Documented by: PG Care Time/CCT Total # of Minutes Spent Total Time Spent with Patient: Total time spent is greater than 50% in coordi nation of care (as documented) at patient's floor/unit and/or counseling patient: Coding Level of Care Code 84449 Subseq Hosp Care Lvl 2 Diagnoses Hematochezia K92.1 Abdominal pain R10.84 Abdominal location: generalized 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
[2019-09-11] MEDS: MoRPHine SULFATE 2 MG/ML CARP IV PRN ×4 (01:14→20:20)
[2019-09-11] MEDS: NSS + 20MEQ KCL 20 MEQ/1,000 ML BAG IV SCH ×2 (03:24→14:25)
[2019-09-11] MEDS: PANTOprazole 40 MG in DEXTROSE 5% 100 ML IV SCH ×5 (03:25→22:39)
--- NOTE | 2019-09-11 04:07 | Billing Data ---
Date of Service September 11, 2019 Coding Level of Care Code 53893 Initial Inpt Care Lvl 2
[2019-09-11] MEDS: OXYCODONE HCL IR 5 MG TAB (IMMEDIATE RELEASE) PO PRN ×3 (04:44→21:55)
[2019-09-11 06:56] LABS: Basophils # (auto) 0.02 K/uL (0-0.2); Basophils % (auto) 0.4 %; Eosinophils # (auto) 0.21 K/uL (0-0.5); Eosinophils % (auto) 4.4 %; Hemoglobin 10.9 g/dL (12.0-16.0); Lymphocytes # (auto) 1.39 K/uL (1.2-3.4); Lymphocytes % (auto) 29.1 %; Mean Corpuscular Hemoglobin 28.3 pg (25-34); Mean Corpuscular Hgb Conc 32.1 g/dL (32-36); Mean Corpuscular Volume 88.3 fL (80-100); Mean Platelet Volume 9.7 fL (7.4-10.4); Monocytes # (auto) 0.42 K/uL (0.11-0.59); Monocytes % (auto) 8.8 %; Neutrophils # (auto) 2.74 K/uL (1.4-6.5); Neutrophils % (auto) 57.3 %; Platelet Count 237 K/uL (130-400); RDW Coefficient of Variation 15.4 % (11.5-14.5); RDW Standard Deviation 50.7 fL (36.4-46.3); Red Blood Count 3.85 M/uL (4.2-5.4); White Blood Count 4.78 K/uL (4.8-10.8)
[2019-09-11 07:32] LABS: Albumin Level 2.7 gm/dl (3.4-5.0); BUN Creatinine Ratio 12.5 (10-20); Creatinine Clr Calc Pharmacy 84.4 ml/min; Est GFR (Non-African American) 95.7; Potassium 3.5 mmol/L (3.5-5.1)
[2019-09-11 07:35] LABS: Albumin Globulin Ratio 0.9 (0.9-2); Bilirubin,Total 0.2 mg/dl (0.2-1); Globulin 2.9 gm/dl (2.5-4.0); Total Protein 5.6 gm/dl (6.4-8.2)
[2019-09-11] MEDS: LINACLOTIDE 72 MCG CAPSULE PO SCH (07:43)
[2019-09-11] MEDS: POTASSIUM CHLORIDE PWD 20 MEQ PACK PO SCH (07:44)
[2019-09-11] MEDS: VENLAFAXINE HCL XR 150 MG CAPXR PO SCH (07:44)
[2019-09-11] MEDS: MAGNESIUM OXIDE 400 MG TAB PO SCH (07:44)
[2019-09-11] MEDS: PRAMIPEXOLE DIHYDROCHLO 0.25 MG TAB PO SCH ×3 (07:45→20:20)
[2019-09-11] MEDS: lisinopriL 20 MG TAB PO SCH (07:46)
[2019-09-11] MEDS ORDERED: POLYETHYLENE (MIRALAX) 17 GM PACK PO ONE (10:00)
--- NOTE | 2019-09-11 16:03 | Hospitalist Progress Note ---
Date of Service September 11, 2019 Assessment & Plan (1) Abdominal pain: has metastatic ovarian CA, likely the source of pain Morphine PRN (2) Hematochezia: reportedly had bright red blood per rectum prior to admission, since resolved will collect stool sample when she has one Hb is down very slightly at 10.9 repeat H/H in the morning plan for EGD and colonoscopy tomorrow (3) [facility] (current) use of anticoagulants: holding Xarelto with plans for scopes on Thursday (4) Pulmonary embolism: hold Xarelto Admission and Anticipated Discharge Date Admission Date: September 10, 2019 Subjective patient doing well, no bleeding tolerating liquid diet plan for bowel prep this evening no fever/chills, no abdominal pain reviewed labs, Hb stable at 10.9, BMP normal Review of Systems Review of Systems: All systems reviewed & are unremarkable except as noted in HPI & below Gastrointestinal: no abdominal pain, no nausea, no vomiting, no constipation, no diarrhea/loose stools, no blood in stools and no melena Physical Exam Constitutional: WD/WN, vitals as above Eyes: PERRL, conjunctivae normal, anicteric sclerae ENMT: external ear and nose normal, oropharynx normal Neck: trachea midline, no thyromegaly Respiratory: normal respiratory effort, lungs clear to auscultation Cardiovascular: RRR, no murmur, no edema Gastrointestinal (Abdomen): normal bowel sounds, soft, nontender, no hepatosplenomegaly Musculoskeletal: no cyanosis or clubbing, extremities motor strength 5/5 Skin: no rashes, warm and dry Neurologic: patellar DTR's 2+ bilat, sensation intact and PERRL, EOMI, accommodation nl, no face palsy, no dysarthria Psychiatric: A+Ox3, euthymic affect Lymphatic: no cervical or axillary lymphadenopathy Results & Data Results & Data ([facility]) Vital Signs (Past 12 Hours) Vital Signs Temp Pulse Pulse Resp BP Pulse Ox 09/11/19 15:18 37.0 C 69 18 158/93 H 100 09/11/19 14:52 66 09/11/19 10:50 36.8 C 80 19 179/77 H 98 09/11/19 07:31 65 09/11/19 06:59 37.0 C 79 18 156/81 H 97 Laboratory Results Laboratory Results - last 24 hr 09/11/19 09/11/19 06:20 06:20 WBC 4.78 L RBC 3.85 L Hgb 10.9 L Hct 34.0 L MCV 88.3 MCH 28.3 MCHC 32.1 RDW Std Deviation 50.7 H RDW Coeff of Dilia 15.4 H Plt Count 237 MPV 9.7 Immature Gran % (Auto) 0.0 Neut % (Auto) 57.3 Lymph % (Auto) 29.1 Sheridan % (Auto) 8.8 Eos % (Auto) 4.4 Baso % (Auto) 0.4 Immature Gran # (Auto) 0.00 Neut # (Auto) 2.74 Lymph # (Auto) 1.39 Sheridan # (Auto) 0.42 Eos # (Auto) 0.21 Baso # (Auto) 0.02 Sodium 142 Potassium 3.5 Chloride 109 H Carbon Dioxide 30 Anion Gap 3.0 BUN 9 Creatinine 0.68 Est Cr Clr Drug Dosing 84.4 Est GFR ( Amer) 111.0 Est GFR (Non-Af Amer) 95.7 BUN/Creatinine Ratio 12.5 Glucose 139 H Calcium 8.0 L Total Bilirubin 0.2 AST 25 ALT 59 Alkaline Phosphatase 131 H Total Protein 5.6 L Albumin 2.7 L Globulin 2.9 Albumin/Globulin Ratio 0.9 Medications Administered Current Inpatient Medications Acetaminophen (Tylenol) 650 mg PO Q6H PRN PRN Reason: Pain or Fever Stop: 10/10/19 01:55 Ergocalciferol (Vitamin D2) 50,000 units PO Mo@0900 [facility] Stop: 10/12/19 08:59 Heparin Sodium (Porcine) (Heparin Sod 100 Unit/Ml Flush) 5 ml FLUSH PRN PRN PRN Reason: Flush Stop: 10/10/19 03:44 Pantoprazole Sodium 40 mg/ (Dextrose) 100 mls @ 20 mls/hr IV Q5H [facility] Stop: 10/09/19 19:59 Last Admin: 09/11/19 12:24 Dose: 8 mg/hr, 20 mls/hr Documented by: Potassium Chloride/Sodium Chloride (Normal Saline W/20 Meq Kcl) 20 meq in 1,000 mls @ 80 mls/hr IV .[id number] [facility] Stop: 10/10/19 01:55 Last Admin: 09/11/19 14:25 Dose: 80 mls/hr Documented by: Levothyroxine Sodium (Synthroid) 88 mcg PO DAILYBB [facility] Stop: 10/10/19 06:29 Last Admin: 09/10/19 11:33 Dose: 88 mcg Documented by: Linaclotide (Linzess) 144 mcg PO DAILY [facility] Stop: 10/10/19 08:59 Last Admin: 09/11/19 07:43 Dose: 144 mcg Documented by: Lisinopril (Zestril) 20 mg PO DAILY [facility] Stop: 10/10/19 08:59 Last Admin: 09/11/19 07:46 Dose: 20 mg Documented by: Lorazepam (Ativan) 1 mg PO TID PRN PRN Reason: Anxiety Stop: 10/10/19 02:15 Last Admin: 09/10/19 21:05 Dose: 1 mg Documented by: Magnesium Oxide (Mag-Ox) 400 mg PO QAM [facility] Stop: 10/10/19 08:59 Last Admin: 09/11/19 07:44 Dose: 400 mg Documented by: Morphine Sulfate (Morphine Sulfate) 2 mg IV Q3H PRN PRN Reason: Pain Stop: 09/24/19 00:30 Last Admin: 09/11/19 15:39 Dose: 2 mg Documented by: Ondansetron HCl (Zofran Odt) 8 mg PO TID PRN PRN Reason: Nausea Stop: 10/10/19 02:18 Ondansetron HCl (Zofran) 4 mg IV Q6H PRN PRN Reason: Nausea Stop: 10/10/19 01:55 Oxycodone HCl (Roxicodone Immediate Rel) 10 mg PO Q6H PRN PRN Reason: Pain Stop: 09/24/19 01:55 Last Admin: 09/11/19 12:28 Dose: 10 mg Documented by: Polyethylene Glycol (Miralax Powder Packet) 17 gm PO DAILY PRN PRN Reason: Constipation Stop: 10/10/19 01:55 Potassium Chloride (Klor-Con Pwd) 20 meq PO QAM [facility] Stop: 10/10/19 08:59 Last Admin: 09/11/19 07:44 Dose: 20 meq Documented by: Pramipexole Dihydrochloride (Mirapex) 0.125 mg PO TID [facility] Stop: 10/10/19 08:59 Last Admin: 05/03/20 12:20 Dose: 0.125 mg Documented by: Venlafaxine HCl (Effexor Extended Release) 150 mg PO DAILY [facility] Stop: 10/10/19 08:59 Last Admin: 09/11/19 07:44 Dose: 150 mg Documented by: PG Care Time/CCT Total # of Minutes Spent Total Time Spent with Patient: Total time spent is greater than 50% in coordination of care (as documented) at patient's floor/unit and/or counseling patient: Coding Level of Care Code 44289 Subseq Hosp Care Lvl 2 Diagnoses Abdominal pain R10.84 Abdominal location: generalized 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
--- NOTE | 2019-09-11 16:18 | Gastroenterology Progress Note ---
Date of Service September 11, 2019 Assessment & Plan (1) Hematochezia: Given brown stool with prep this a lower GI bleed. Colonoscopy planned for tomorrow. hx of gastric ulcer hemorrhoids on rectal acute blood loss anemia--stable. Colonoscopy planned for tomorrow. Discussed that since she has brown stool noted then this is not an UGI bleed with rapid transit. Discussed we could skip EGD or do EGD to see if there is any gastric ulceration or other pathology given hx of gastric ulcer bleeding. She would like to proceed with EGD which is a good idea to help predict any future bleeding and to guide therapy such as recommendation for PPI or Carafate. Procs and risks explained to patient which include but not limted to med reaction, bleeding, perforation, aspiraiton, and missed lesions. I am going off service tomorrow at [address] Owens is assuming GI care then. Admission and Anticipated Discharge Date Admission Date: September 10, 2019 Subjective cc f/u rectal bleeding HPI Pt states no bleeding since admission. Started bowel prep for colonoscopy and stools are brown. No significant abd pain at present. Review of Systems Respiratory: no dyspnea Cardiovascular: no chest pain Physical Exam Constitutional: WD/WN, vitals as above Respiratory: normal respiratory effort, lungs clear to auscultation Cardiovascular: RRR, no murmur, no edema Gastrointestinal (Abdomen): pos bs, soft, no guarding nor rebound. Psychiatric: A+Ox3, euthymic affect Results & Data ([facility]) Vital Signs (Past 12 Hours) Vital Signs Temp Pulse Pulse Resp BP Pulse Ox 09/11/19 15:18 37.0 C 69 18 158/93 H 100 09/11/19 14:52 66 09/11/19 10:50 36.8 C 80 19 179/77 H 98 09/11/19 07:31 65 09/11/19 06:59 37.0 C 79 18 156/81 H 97
[2019-09-11] MEDS ORDERED: DiphenhydrAMINE HCL 50 MG/ML VIAL IV STA (18:23)
[2019-09-11] MEDS ORDERED: DiphenhydrAMINE HCL 50 MG/ML VIAL ONE (18:25)
[2019-09-11] MEDS: LORazepam 1 MG TAB PO PRN (21:55)
[2019-09-12] MEDS: MoRPHine SULFATE 2 MG/ML CARP IV PRN ×3 (01:00→14:28)
[2019-09-12] MEDS: NSS + 20MEQ KCL 20 MEQ/1,000 ML BAG IV SCH (02:25)
[2019-09-12] MEDS: PANTOprazole 40 MG in DEXTROSE 5% 100 ML IV SCH ×3 (03:16→12:09)
[2019-09-12] MEDS: OXYCODONE HCL IR 5 MG TAB (IMMEDIATE RELEASE) PO PRN ×2 (03:55→11:32)
[2019-09-12] MEDS: LEVOTHYROXINE SODIUM 88 MCG TABLET PO SCH (06:20)
[2019-09-12 06:36] LABS: Basophils # (auto) 0.04 K/uL (0-0.2); Basophils % (auto) 0.6 %; Eosinophils # (auto) 0.21 K/uL (0-0.5); Eosinophils % (auto) 3.4 %; Hematocrit (blood only) 37.2 % (37-47); Hemoglobin 12.2 g/dL (12.0-16.0); Lymphocytes # (auto) 1.54 K/uL (1.2-3.4); Lymphocytes % (auto) 24.8 %; Mean Corpuscular Hgb Conc 32.8 g/dL (32-36); Mean Corpuscular Volume 88.4 fL (80-100); Mean Platelet Volume 9.7 fL (7.4-10.4); Monocytes # (auto) 0.67 K/uL (0.11-0.59); Monocytes % (auto) 10.8 %; Neutrophils # (auto) 3.76 K/uL (1.4-6.5); Neutrophils % (auto) 60.4 %; Platelet Count 252 K/uL (130-400); RDW Coefficient of Variation 15.3 % (11.5-14.5); RDW Standard Deviation 49.6 fL (36.4-46.3); Red Blood Count 4.21 M/uL (4.2-5.4); White Blood Count 6.22 K/uL (4.8-10.8)
[2019-09-12 07:17] LABS: BUN Creatinine Ratio 6.7 (10-20); Calcium 8.4 mg/dl (8.5-10.1); Creatinine Clr Calc Pharmacy 81.1 ml/min; Est GFR (African American) 110.4; Est GFR (Non-African American) 95.3; Potassium 4.1 mmol/L (3.5-5.1)
[2019-09-12 07:19] LABS: Albumin Globulin Ratio 0.9 (0.9-2); Bilirubin,Total 0.2 mg/dl (0.2-1); Globulin 3.4 gm/dl (2.5-4.0); Total Protein 6.4 gm/dl (6.4-8.2)
--- NOTE | 2019-09-12 08:17 | Anesthesiology Consultation ---
Date of Service September 12, 2019 Assessment & Plan (1) Encounter for pre-operative examination: Chart Review Chart Review: Acceptable Risk for Surgery (necessary procedure) and Patient NOT seen in Pre Admission Testing Consults Requested none History Height/Weight Height: 5 ft 2 in Weight: 71.2 kg Allergies Allergy/AdvReac Type Severity Reaction Status Date / Time amoxicillin Allergy Mild HIVES Verified 09/09/19 21:02 clavulanic acid Allergy Mild HIVES Verified 09/09/19 21:02 Medications Home Medications Medication Instructions Recorded Confirmed Last Taken Cancer Medication 1 dose IM MONTHLY 07/23/18 09/09/19 07/09/18 acetaminophen [Tylenol] 1,625 mg PO UD 07/23/18 09/09/19 07/22/18 20:00 ergocalciferol (vitamin D2) 50,000 unit PO WK 07/23/18 09/09/19 07/19/18 [Vitamin D2] lorazepam 1 mg SUBLINGUAL TID PRN 07/23/18 09/09/19 Unknown magnesium oxide 400 mg PO QAM 07/23/18 09/09/19 07/22/18 ondansetron HCl 8 mg PO TID PRN 07/23/18 09/09/19 07/23/18 07:00 potassium chloride [Klor-Con] 20 meq PO QAM 07/23/18 09/09/19 07/22/18 levothyroxine [Synthroid] 88 mcg PO DAILY 09/09/19 09/09/19 Unknown linaclotide [Linzess] 145 mcg PO DAILY 09/09/19 09/09/19 Unknown lisinopril 20 mg PO DAILY 09/09/19 09/09/19 Unknown oxycodone 10 mg PO Q6H PRN 09/09/19 09/09/19 Unknown pramipexole 0.125 mg PO TID 09/09/19 09/09/19 Unknown rivaroxaban [Xarelto] 20 mg PO DAILY 09/09/19 09/09/19 Unknown venlafaxine 150 mg PO DAILY 09/09/19 09/09/19 Unknown Active Medications Generic Name Dose Route Start Last Admin Trade Name Freq PRN Reason Stop Dose Admin Pantoprazole Sodium 40 mg/ 100 mls @ 20 mls/hr 09/09/19 20:00 09/12/19 03:16 Dextrose IV 10/09/19 19:59 8 mg/hr Q5H [facility] 20 mls/hr Administration 8 MG/HR Potassium Chloride/Sodium Chloride 20 meq in 1,000 mls @ 80 mls/hr 09/10/19 01:56 09/12/19 02:25 Normal Saline W/20 Meq Kcl IV 10/10/19 01:55 80 mls/hr .[id number] [facility] Administration Levothyroxine Sodium 88 mcg 09/10/19 06:30 09/12/19 06:20 Synthroid PO 10/10/19 06:29 Not Given DAILYBB [facility] Linaclotide 144 mcg 09/10/19 09:00 09/11/19 07:43 Linzess PO 10/10/19 08:59 144 mcg DAILY [facility] Administration Lisinopril 20 mg 09/10/19 09:00 09/11/19 07:46 Zestril PO 10/10/19 08:59 20 mg DAILY [facility] Administration Lorazepam 1 mg 09/10/19 02:16 09/11/19 21:55 Ativan PO 10/10/19 02:15 1 mg TID PRN Administration Anxiety Magnesium Oxide 400 mg 09/10/19 09:00 09/11/19 07:44 Mag-Ox PO 10/10/19 08:59 400 mg QAM [facility] Administration Morphine Sulfate 2 mg 09/10/19 00:31 09/12/19 06:37 Morphine Sulfate IV 09/24/19 00:30 2 mg Q3H PRN Administration Pain Oxycodone HCl 10 mg 09/10/19 01:56 09/12/19 03:55 Roxicodone Immediate Rel PO 09/24/19 01:55 10 mg Q6H PRN Administration Pain Potassium Chloride 20 meq 09/10/19 09:00 09/11/19 07:44 Klor-Con Pwd PO 10/10/19 08:59 20 meq QAM [facility] Administration Pramipexole Dihydrochloride 0.125 mg 09/10/19 09:00 09/11/19 20:20 Mirapex PO 10/10/19 08:59 0.125 mg TID [facility] Administration Venlafaxine HCl 150 mg 09/10/19 09:00 09/11/19 07:44 Effexor Extended Release PO 10/10/19 08:59 150 mg DAILY [facility] Administration Past Medical History Medical History Cancer of colon (Acute) Cancer of ovary (Chronic ~2006) Colitis (Acute) Hypomagnesemia (Chronic) Hypothyroidism (Chronic) 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) Pulmonary embolism (Acute) Restless leg syndrome (Chronic) SBO (small bowel obstruction) (Acute) Past Family History Family History Other Cancer Diabetes Gallbladder disease Heart disease Hypertension Past Surgical History Surgical History H/O ileostomy (Resolved) Hx of gastric bypass Social History Smoking Status: Never smoker Hx Alcohol Use: No Hx Substance Use: No Physical Exam Vital Signs Last Vital Signs Temp 36.8 C 09/12/19 06:35 Pulse 63 09/12/19 06:35 Resp 16 09/12/19 06:35 BP 185/81 H 09/12/19 06:35 Pulse Ox 99 09/12/19 06:35 Testing Laboratory Results 09/12/19 06:21 09/12/19 06:21 PT 10.5 Seconds (9.0-12.0) 09/09/19 20:00 INR 1.0 (0.9-1.1) 09/09/19 20:00 APTT 27.3 Seconds (21.0-31.0) 09/09/19 20:00 Urine Color Yellow 09/09/19 21:40 Urine Appearance Clear (Clear) 09/09/19 21:40 Urine pH 7.5 (4.5-7.5) 09/09/19 21:40 Ur Specific Stacy 1.013 (1.000-1.030) 09/09/19 21:40 Urine Protein Negative (Negative) 09/09/19 21:40 Urine Glucose (UA) Negative (Negative) 09/09/19 21:40 Urine Ketones Negative (Negative) 09/09/19 21:40 Urine Nitrite Negative (Negative) 09/09/19 21:40 Ur Leukocyte Esterase Negative (Negative) 09/09/19 21:40 Blood Type O Positive 09/09/19 20:00 Antibody Screen NEGATIVE 09/09/19 20:00 Electrocardiogram Date: 09/09/19 Findings: + NSR @ (82) Chest X-Ray Date: 09/09/19 XR chest 1V portable CLINICAL HISTORY: dizziness COMPARISON STUDY: Chest radiograph October 31, 2018. FINDINGS: Lung volumes are normal. Lungs are clear. There is no pneumothorax or pleural effusion. Cardiac size is normal. Mediastinal contours are normal. There is no evidence for pulmonary edema. Right internal jugular [id number] is unchanged in position. IMPRESSION: No acute cardiopulmonary findings. ACT 112: Negative or not required by law. Electronically signed by: Austin Davidson M.D. 09/09/2019 8:31 PM
[2019-09-12] MEDS: PRAMIPEXOLE DIHYDROCHLO 0.25 MG TAB PO SCH ×2 (08:24→14:27)
[2019-09-12] MEDS: LINACLOTIDE 72 MCG CAPSULE PO SCH (08:25)
[2019-09-12] MEDS: lisinopriL 20 MG TAB PO SCH (08:25)
[2019-09-12] MEDS: MAGNESIUM OXIDE 400 MG TAB PO SCH (08:25)
[2019-09-12] MEDS: POTASSIUM CHLORIDE PWD 20 MEQ PACK PO SCH (08:25)
[2019-09-12] MEDS: VENLAFAXINE HCL XR 150 MG CAPXR PO SCH (08:25)
[2019-09-12] MEDS ORDERED: ERGOCALCIFEROL 50,000 UNITS CAP PO SCH (09:00)
[2019-09-12] MEDS ORDERED: lisinopriL 20 MG TAB PO STA (11:06)
[2019-09-12] MEDS ORDERED: PROPOFOL IV EMULSION 10 MG/ML 20 ML VIAL IV ONE (12:46)
[2019-09-12] MEDS ORDERED: LIDOCAINE HCL 2% 2 ML VIAL/AMP(20MG/ML) INFIL ONE (12:46)
[2019-09-12] MEDS ORDERED: ONDANSETRON INJ 2 MG/ML 2 ML VIAL ONE (12:47)
--- NOTE | 2019-09-12 12:53 | History & Physical Report ---
Date of Service September 12, 2019 History of Present Illness Chief Complaint: rectal bleeding Primary Care Provider: Arun Chapman For EGd and colonoscopy Allergies Allergy/AdvReac Type Severity Reaction Status Date / Time amoxicillin Allergy Mild HIVES Verified 09/09/19 21:02 clavulanic acid Allergy Mild HIVES Verified 09/09/19 21:02 Home Medications Home Medications Medication Instructions Recorded Confirmed Type Cancer Medication 1 dose IM MONTHLY 07/23/18 09/09/19 History acetaminophen [Tylenol] 1,625 mg PO UD 07/23/18 09/09/19 History ergocalciferol (vitamin D2) 50,000 unit PO WK 07/23/18 09/09/19 History [Vitamin D2] lorazepam 1 mg SUBLINGUAL TID PRN 07/23/18 09/09/19 History magnesium oxide 400 mg PO QAM 07/23/18 09/09/19 History ondansetron HCl 8 mg PO TID PRN 07/23/18 09/09/19 History potassium chloride [Klor-Con] 20 meq PO QAM 07/23/18 09/09/19 History levothyroxine [Synthroid] 88 mcg PO DAILY 09/09/19 09/09/19 History linaclotide [Linzess] 145 mcg PO DAILY 09/09/19 09/09/19 History lisinopril 20 mg PO DAILY 09/09/19 09/09/19 History oxycodone 10 mg PO Q6H PRN 09/09/19 09/09/19 History pramipexole 0.125 mg PO TID 09/09/19 09/09/19 History rivaroxaban [Xarelto] 20 mg PO DAILY 09/09/19 09/09/19 History venlafaxine 150 mg PO DAILY 09/09/19 09/09/19 History Past Med/Surg History Medical History Cancer of colon (Acute) Cancer of ovary (Chronic ~2006) Colitis (Acute) Hypomagnesemia (Chronic) Hypothyroidism (Chronic) 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) Pulmonary embolism (Acute) Restless leg syndrome (Chronic) SBO (small bowel obstruction) (Acute) Surgical History H/O ileostomy (Resolved) Hx of gastric bypass Family History Other Cancer Diabetes Gallbladder disease Heart disease Hypertension Social History Preferred Language: Uzbek Communication Ability: Effective Block Trader Required: No Beliefs That Will Affect Care: None marital status: Current Living Situation: Spouse current occupational status: unemployed Other Information That Helps Us Care for You: No Feels Safe at Home: Yes Safety Concerns: Feels Safe At This Time Smoking Status: Never smoker Hx Alcohol Use: No Hx Substance Use: No Physical Exam Constitutional: + obese Respiratory: normal respiratory effort Cardiovascular: Rate/Rhythm: regular rate and regular rhythm Gastrointestinal (Abdomen): Percussion/Palpation: abdomen soft Results & Data Vital Signs (Past 12 Hours) Vital Signs Temp Pulse Pulse Resp BP Pulse Ox 09/12/19 12:36 37 C 78 18 173/78 H 98 09/12/19 11:00 36.5 C 78 20 144/83 H 97 09/12/19 06:35 36.8 C 63 16 185/81 H 99 09/12/19 04:36 36.5 C 61 18 167/90 H 96 Code Status & VTE Plan VTE Prophylaxis Plan VTE Prophylaxis will be ordered: Yes
[2019-09-12] MEDS ORDERED: SODIUM CHLORIDE 0.9% 1000ML 1,000 ML IV SCH (13:00)
--- NOTE | 2019-09-12 13:32 | Anesthesiology Progress Note ---
Date of Service September 12, 2019 Anesthesia Post Procedure Vital Signs Vital Signs: Temp Pulse Pulse Pulse Pulse Resp BP 09/12/19 13:23 73 13 114/62 09/12/19 12:36 37 C 78 18 173/78 H 09/12/19 11:00 36.5 C 78 20 144/83 H 09/12/19 06:35 36.8 C 63 16 185/81 H 09/12/19 04:36 36.5 C 61 18 167/90 H 09/11/19 23:46 36.6 C 67 18 147/84 H 09/11/19 20:00 159/82 H 09/11/19 19:16 36.3 C L 78 18 187/96 H 09/11/19 15:18 37.0 C 69 18 158/93 H 09/11/19 14:52 66 Pulse Ox 09/12/19 13:23 100 09/12/19 12:36 98 09/12/19 11:00 97 09/12/19 06:35 99 09/12/19 04:36 96 09/11/19 23:46 95 09/11/19 20:00 09/11/19 19:16 98 09/11/19 15:18 100 09/11/19 14:52 Pain Intensity Abdomen: Pain Intensity: 2 Right Arm: Pain Intensity: 3 Back: Pain Intensity: 3 Transfer of Care Handoff Completed per policy Notes Mental Status: alert / awake / arousable Patient Amnestic to Procedure: Yes Nausea / Vomiting: adequately controlled Pain: adequately controlled Airway Patency, RR, SpO2: stable & adequate BP & HR: stable & adequate Hydration State: stable & adequate Anesthetic Complications: no major complications apparent and Pt Satisfied with anesthetic care
--- NOTE | 2019-09-12 13:33 | GI REPORT ---
Patient Name: Evangelina Lenz Procedure Date: 09/12/2019 12:50 PM Date of : 1960 Admit Type: Inpatient Age: 59 Gender: Female Attending MD: Kyle Owens MD Procedure: Upper GI endoscopy Providers: Kyle Owens MD Referring MD: Amanda Leonardo Md Indications: Hematochezia Medicines: Propofol total dose 340 mg IV, Ondansetron 4 mg IV, Ketamine 25 mg IV, Lidocaine 70 mg IV Complications: No immediate complications. Estimated Blood Loss: Estimated blood loss: none. Procedure: Pre-Anesthesia Assessment: - Prior to the procedure, a History and Physical was performed, and patient medications, allergies and sensitivities were reviewed. The patient's tolerance of previous anesthesia was reviewed. - The risks and benefits of the procedure and the sedation options and risks were discussed with the patient. All questions were answered and informed consent was obtained. After obtaining informed consent, the endoscope was passed under direct vision. Throughout the procedure, the patient's blood pressure, pulse, and oxygen saturations were monitored continuously. The Scope was introduced through the mouth, and advanced to the jejunum. The upper GI endoscopy was accomplished without difficulty. The patient tolerated the procedure well. Findings: The examined esophagus was normal. The Z-line was regular and was found 36 cm from the incisors. Evidence of a gastric bypass was found. A gastric pouch with a normal size was found. The gastrojejunal anastomosis was characterized by healthy appearing mucosa. This was traversed. The [id number] limb was characterized by healthy appearing mucosa. The examined jejunum was normal. Impression: - Normal esophagus. - Z-line regular, 36 cm from the incisors. - Gastric bypass with a normal-sized pouch. Gastrojejunal anastomosis characterized by healthy appearing mucosa. - Normal examined jejunum. - No specimens collected. Recommendation: - Return patient to [facility] for ongoing care. Kyle Owens M.D. Kyle Owens MD 09/12/2019 1:33:02 PM This report has been signed electronically. Note Initiated On: 09/12/2019 12:50 PM Number of Addenda: 0 I attest to the content of the Intraoperative Record and orders documented therein, exceptions below {[id number]}
--- NOTE | 2019-09-12 13:37 | GI REPORT ---
Patient Name: Evangelina Lenz Procedure Date: 09/12/2019 12:50 PM Date of : 1960 Admit Type: Inpatient Age: 59 Gender: Female Attending MD: Kyle Owens MD Procedure: Colonoscopy Providers: Kyle Owens MD Referring MD: Amanda Leonardo Md Indications: Rectal bleeding Medicines: Propofol total dose 340 mg IV, Ondansetron 4 mg IV, Ketamine 25 mg IV, Lidocaine 70 mg IV Complications: No immediate complications. Estimated Blood Loss: Estimated blood loss: none. Procedure: Pre-Anesthesia Assessment: - Prior to the procedure, a History and Physical was performed, and patient medications, allergies and sensitivities were reviewed. The patient's tolerance of previous anesthesia was reviewed. - The risks and benefits of the procedure and the sedation options and risks were discussed with the patient. All questions were answered and informed consent was obtained. After I obtained informed consent, the scope was passed under direct vision. Throughout the procedure, the patient's blood pressure, pulse, and oxygen saturations were monitored continuously. The scope was introduced through the anus and advanced to the cecum, identified by appendiceal orifice and ileocecal valve. The colonoscopy was somewhat difficult due to restricted mobility of the colon. Successful completion of the procedure was aided by applying abdominal pressure. The patient tolerated the procedure well. The quality of the bowel preparation was good. Findings: Internal hemorrhoids were found during endoscopy. The hemorrhoids were moderate. Impression: - Internal hemorrhoids. - No specimens collected. Recommendation: - Return patient to [facility] for ongoing care. Kyle Owens M.D. Kyle Owens MD 09/12/2019 1:37:31 PM This report has been signed electronically. Note Initiated On: 09/12/2019 12:50 PM Number of Addenda: 0 I attest to the content of the Intraoperative Record and orders documented therein, exceptions below {[id number]}
--- NOTE | 2019-09-12 14:03 | Progress Notes ---
DATE: 09/12/2019 The patient presented to the endoscopy unit today for evaluation of rectal bleeding. She has been off Xarelto; this is her fourth day off Xarelto. She presented for an EGD and colonoscopy. She has had gastric bypass in the past. Her upper endoscopy showed normal gastric bypass with a normal gastric pouch with a normal anastomosis and both limbs of her anastomosis into the small bowel were normal. There were no signs of blood or bleeding in the upper endoscopy. Her colonoscopy was somewhat difficult due to her previous ovarian and colon operations and adhesions, but we were able to get to the cecum. Bowel prep was good. There were no diverticula, polyps or masses. She did have some [id number] internal hemorrhoids that were not bleeding at the time of the procedure. There was no blood anywhere in the entire colon. IMPRESSION: The patient's most likely source of bleeding was internal hemorrhoids exacerbated by her Xarelto. She is currently not bleeding and I would recommend restarting the Xarelto. If she continues to bleed from her hemorrhoids, she may need intervention by a colorectal surgeon going forward.
[2019-09-12] MEDS ORDERED: RIVAROXABAN 20 MG TAB PO SCH (14:30)
[2019-09-12 14:41] VITALS: BP 168/90; TEMP 97.9; O2SAT 99
--- NOTE | 2019-09-12 16:20 | Discharge Summary ---
Date of Service September 12, 2019 Admission HPI Per Admitting Provider Chief Complaint: Hematochezia Primary Care Provider: Arun Chapman Evangelina Lenz is a 59 year old woman with a past medical history of metastatic ovarian cancer with mets throughout abdomen including colon, stomach and abd ominal wall. She is being treated with monthly injections through [facility] Dr. Navarro. Hypothyroidism, pulmonary embolism, DVT's, and GI bleed from a gastric ulcer that was repaired last year. Patient has had a sheree en Y bypass procedure and a colectomy and formerly had a colostomy but now has had a anastamosis performed and has a continuous GI tract. She presents after a large bowel movement with bright red blood per rectum. She was feeling quite a lot of abdominal cramping which was relieved by her BM. Other than that she has felt in her usual state of health and the abdominal pain was quickly resolved. On arrival to ED her vital signs were WNL, her labwork was significant for anemia with hemoglobin of 11.8, from baseline over 14 a year ago. normal electrolytes and creatinine, negative lipase, negative urinalysis and positive Bright red blood on rectal exam. She does not have any remaining abdominal pain, she does have her chronic pain which right now is in her back and right arm. No shortness of breath, no chest pain, no vomiting, occasional chronic nausea, no urinary difficulty no hematuria, no leg pain. She is a non smoker, non drinker, uses marijuana occasionally once this week once six months ago no other drug use Principal Diagnosis Hematochezia, Internal hemorrhoids Discharge Exam Constitutional WD/WN, vitals as above Eyes + anicteric sclerae Neck trachea midline, no thyromegaly Respiratory normal respiratory effort, lungs clear to auscultation Cardiovascular RRR, no murmur, no edema Chest (Breasts) Chest: normal inspection of chest Gastrointestinal (Abdomen) normal bowel sounds, soft, nontender, no hepatosplenomegaly Musculoskeletal Extremities: extremities normal to inspection; no cyanosis and no clubbing Skin no rashes, warm and dry Neurologic moves all extremities and awake; no focal motor deficits Psychiatric A+Ox3, euthymic affect Lymphatic no lymphedema Discharge Data Allergies Allergy/AdvReac Type Severity Reaction Status Date / Time amoxicillin Allergy Mild HIVES Verified 09/09/19 21:02 clavulanic acid Allergy Mild HIVES Verified 09/09/19 21:02 Consultations 09/09/19 23:22 ED Decision to Admit Stat 09/10/19 01:56 Consult Gastroenterology Routine Procedures Performed Operation Date: 09/12/19 09:10 Actual Procedures p Esophagogastroduodenoscopy - Kyle Owens s Colonoscopy - Kyle Owens Ordered Studies 09/09/19 19:41 CT abd pelvis oral and IV con Stat Hospital Course (1) Hematochezia: Presented with bright red blood per rectum prior to admission, since resolved Hgb is down very slightly at 10.9 and then went up to 12.2 on day of discharge without receiving any blood products Had EGD and colonoscopy which showed only internal hemorrhoids and no dive rticula or other findings. 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 Owens/Gastroenterology) Discharge Plan Discharge Items Patient Disposition: Home - Self-Care Reason For Visit: HEMATOCHEZIA Discharge Diagnosis: Hematochezia, Internal hemorrhoids Condition on Discharge: Good Activity: Resume your previous activity Non-emergency contact: Primary Care Provider Call non-emergency contact if: you have any medication questions and your symptoms worsen Follow-up/Referrals: Arun Chapman [Primary Care Provider] - Diet: Regular Diet Comment: High fiber diet Addtl Attending Provider Instructions: You were admitted with rectal bleeding and found to have only internal hemorrhoids on colonoscopy. Your EGD and colonoscopy otherwise looked normal and had no source of bleeding. Your bleeding stopped and your Xarelto was restarted. It is important to keep your stool soft and eat a high fiber diet or take a fiber supplement to keep your hemorrhoids from bleeding again. If this recurs, you would want to consider a consultation with a colorectal surgeon to discuss a procedure to remove your hemorrhoids. Pending Studies at Discharge: No Stand-Alone Forms: My [facility] Medications and DC Order Prescriptions: New docusate sodium 100 mg capsule 100 mg PO BID Qty: 60 RF: 0 Continued ondansetron HCl 8 mg tablet 8 mg PO TID PRN (Reason: Nausea) RF: 0 potassium chloride [Klor-Con] 20 mEq packet 20 meq PO QAM RF: 0 ergocalciferol (vitamin D2) [Vitamin D2] 50,000 unit Capsule 50,000 unit PO WK RF: 0 lorazepam 1 mg Tablet 1 mg SUBLINGUAL TID PRN (Reason: Anxiety) RF: 0 magnesium oxide 400 mg magnesium Tablet 400 mg PO QAM RF: 0 Cancer Medication 1 dose IM MONTHLY RF: 0 lisinopril 20 mg tablet 40 mg PO DAILY RF: 0 venlafaxine 150 mg capsule,extended release 24hr 150 mg PO DAILY RF: 0 levothyroxine [Synthroid] 88 mcg tablet 88 mcg PO DAILY RF: 0 pramipexole 0.125 mg tablet 0.125 mg PO TID RF: 0 Xarelto 20 mg tablet 20 mg PO DAILY RF: 0 Linzess 145 mcg capsule 145 mcg PO DAILY RF: 0 oxycodone 10 mg tablet 10 mg PO Q6H PRN (Reason: Pain) RF: 0 Changed acetaminophen [Tylenol] 325 mg Tablet 1,000 mg PO UD Qty: 0 RF: 0 Discharge Orders: Discharge Order (Routine); Ordered 09/12/19 Ordered By: Amanda Waller/Other Patient Handouts: Docusate capsules Admission Data Admit Date/Time: 09/10/19 00:40 Attending Provider: Amanda Leonardo Admit Provider: Jose Riojas Primary Care Provider: Arun Chapman Other Providers: Darrell Koehler ; Giovanni Barrera Other Interventions: Discharge Summary Assessment (RN) Last Done: 09/12/19 16:29 Coding Level of Care Code D/C Day Management >30 mins Diagnoses Hematochezia K92.1 Abdominal pain R10.84 Abdominal location: generalized skilled nursing (current) use of anticoagulants Z79.01 Pulmonary embolism I26.99
[2019-09-12 16:33] VITALS: PULSE 62
[2019-09-13] MEDS ORDERED: lisinopriL 40 MG TAB PO SCH (09:00)
== END 2019-09-12 17:30 | disposition home or self-care (01) | DRG 394 ==
LOC: ED 19:09 → SUATTDRO 09-10 00:40 → 1E 09-10 00:40 → 2S 09-10 20:29

== ENCOUNTER 2022-03-20 08:59 | Observation (INO) ==
[2022-03-20] MEDS ORDERED: HYDROmorphone INJ 1 MG/ML SYRINGE IV STA ×2 (09:24→10:52)
--- NOTE | 2022-03-20 09:28 | Emergency Department Note ---
Impression & Plan Acute right-sided weakness, Ataxia, Stroke-like symptoms ED Provider Note Name: DENIZ AGUIRRE Age: 61 Sex: F Arrives Via: Walk-In Informant: Patient, ED Provider: Arun Jeff MD Chief Complaint: Dizziness Impression: As per impressions above Medical Decision Makin-year-old female with an extensive past medical history including metastatic ovarian cancer, PEs, massive GI bleed, cva, hypothyroid amongst others arrives for evaluation of 48 hours of inability to use her right arm properly and difficulty walking straight. On examination she has mild right facial droop but after multiple repeat discussions it appears this has been ongoing for her whole life. She does not have any significant weakness of the right arm other than maybe some 4 out of 5 strength of the right hand compared to the left which is 5 out of 5. Symptoms have been ongoing for 48 hours now this is not a tPA candidate. CT of the head and neck with angio reveals no acute occlusions or ischemic findings. Hold off on aspirin given her previous GI bleeding and defer to neurology/medical team on whether to go forward to this. She is on Xarelto already for her PE history but is not on an antiplatelet medication. Patient is comfortable with this plan for hospitalization. Prior Medical Record and Triage/Nursing Notes reviewed by Me Additional history obtained from chart Differentials: Infection, dehydration, metabolic abnormality, hypo/hyperglycemia, electrolyte disturbance, anemia, hypoxia, cardiac sources, intracerebral event, toxicologic, neurologic, as well as other pathologies. Vital Signs: reviewed and remarkable for htn Interventions: IV Dilaudid for her chronic back pain Labs:Reviewed and remarkable for no significant abnormalities Imaging:CT imaging of the head and neck with angio reveals no acute occlusion, aneurysm or ischemic findings at this time EKG:As per my interpretation. Indication strokelike symptoms. Normal sinus rhythm at 71 bpm with a QTC of 419. There is no acute change from March 22, 2020. There is no ectopy nor ischemia. Consults:Dr Deborah ACUNA Hospitalist Plan: Disposition:Hospitalization. Condition: Good History of Present Illness:61-year-old female arrives for evaluation of weakness. Patient notes last 48 hours having right arm weakness, difficulty w alking straight, increasing right facial weakness and dizziness. Denies any specific spinning and feels like she just cannot seem to walk straight. Notes she has been dropping things with her right hand. She does have a history of some right face and right arm weakness from previous stroke but states that symptoms have worsened. Denies any falls, trauma, injury. Denies any headache, neck pain, rashes, fevers, chills, chest pain, abdominal pain or other concerning signs or symptoms. She has chronic low back pain from metastatic cancer. She does note that she is on Xarelto for previous PEs. She is not on aspirin or Plavix as she has a previous severe GI bleed requiring surgery. She does have a history of a stroke several years ago. Denies any medications taken for symptoms today. Walking around makes symptoms worse sitting down makes them better. Patient has a complex history of PEs, congestive heart failure, metastatic ovarian cancer, GI bleed amongst other. ROS: See above HPI for pertinent positives & negatives. A total of 10 systems reviewed and were otherwise negative. Past Medical History:See Below Past Surgical History:See Below Family History:See Below Social History:See Below Home Medications:See Below Allergies:Amoxicillin/clavulanic acid Vitals:Blood Pressure: 153/78, Pulse 82, RR 18, T 36.5C, O2 96% on RA Physical Exam: GENERAL: Patient is uncomfortable appearing and in mild distress. EYES: No scleral icterus, unremarkable pupils. ENT: Mucous membranes moist, no nasal congestion. NECK: No masses appreciated, nomeningismus, trachea is midline. RESPIRATORY: No dyspnea. Clear to auscultation and equal bilaterally. No wheeze, no rhonchi. CARDIOVASCULAR: Regular rate and rhythm.No murmurs, rubs, gallops appreciated. GASTROINTESTINAL: Abdomen soft, non-tender, no peritonitis.Bowel sounds positive.No masses appreciated. BACK: No midline tenderness, no CVA tenderness EXTREMITIES: Normal motion all extremities, no cyanosis, no edema. NEUROLOGIC: right facial weakness, primarily around right eye and some right lower face. Right arm ataxia with some 4/5 strength in hand. Alert and oriented, sensory deficits. SKIN: No rash, no jaundice, no diaphoresis. PSYCH: Appropriate GCS: 15 ED Course: Times/Reassessments: Stable back pain improving and she is comfortable with plan for hospitalization. Right arm actually seems to be working better on repeat evaluations. 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 Required: No Beliefs That Will Affect Care: None marital status: Current Living Situation: Spouse current occupational status: unemployed Feels Safe at Home: Yes Safety Concerns: Feels Safe At This Time Assistive Devices: Denture - Upper Allergies Allergies Allergy/AdvReac Type Severity Reaction Status Date / Time amoxicillin Allergy Mild HIVES Verified 03/20/22 12:52 clavulanic acid Allergy Mild HIVES Verified 03/20/22 12:52 Home Meds Home Medications Medication Instructions Recorded Confirmed ergocalciferol (vitamin D2) 1,250 50,000 unit PO WK 07/23/18 03/20/22 mcg (50,000 unit) capsule (Vitamin D2) linaclotide 145 mcg capsule 145 mcg PO QAM 09/09/19 03/20/22 (Linzess) rivaroxaban 20 mg tablet (Xarelto) 20 mg PO QAM 09/09/19 03/20/22 venlafaxine 150 mg 150 mg PO QAM 09/09/19 03/20/22 capsule,extended release 24 hr ropinirole 1 mg tablet 1 mg PO TID 03/22/20 03/20/22 venlafaxine 75 mg capsule,extended 75 mg PO QAM 03/22/20 03/20/22 release 24 hr alendronate 70 mg tablet 70 mg PO WK 11/18/20 03/20/22 fentanyl 25 mcg/hr transdermal 25 mcg topical Q72H PRN Pain 02/24/21 03/20/22 patch lisinopril 40 mg tablet (Zestril) 40 mg PO QAM 02/24/21 03/20/22 amlodipine 5 mg tablet 5 mg PO DAILY 03/20/22 03/20/22 bupropion HCl 150 mg tablet,12 hr 150 mg PO BID 03/20/22 03/20/22 sustained-release levothyroxine 88 mcg tablet 88 mcg PO DAILY 03/20/22 03/20/22 oxycodone 10 mg tablet 5 mg PO Q4 PRN Pain 03/20/22 03/20/22 Previous Rx's Medication Instructions Recorded ondansetron 4 mg disintegrating 4 mg PO Q8H PRN nausea and 02/24/21 tablet vomiting #30 tabs Results & Data (ED) Vital Signs Vital Signs - 24 hr 03/20/22 09:01 03/20/22 09:53 03/20/22 09:53 Temperature 36.5 C Temperature Source Oral Pulse Rate 82 Pulse Rate [Apical] 68 Pulse Rate from SpO2 Sensor Respiratory Rate 18 18 Respiratory Effort / Characteristics Non-Labored Spontaneous Respiratory Depth Normal Blood Pressure 153/78 H Blood Pressure [Right Arm] 159/88 H Blood Pressure Mean 103 Blood Pressure Mean [Right Arm] 111 Blood Pressure Position [Right Arm] Sitting Pulse Oximetry 96 94 96 Oxygen Delivery Method Room Air Room Air Room Air Sepsis Recent Fever Within 48 Hours No Sepsis New/Unexplained Change in Mental Status No Sepsis Action Taken by Nursing No Action Required 03/20/22 11:01 Temperature Temperature Source Pulse Rate 78 Pulse Rate [Apical] Pulse Rate from SpO2 Sensor 78 Respiratory Rate 23 Respiratory Effort / Characteristics Respiratory Depth Blood Pressure 166/91 H Blood Pressure [Right Arm] Blood Pressure Mean 116 Blood Pressure Mean [Right Arm] Blood Pressure Position [Right Arm] Pulse Oximetry 96 Oxygen Delivery Method Room Air Sepsis Recent Fever Within 48 Hours Sepsis New/Unexplained Change in Mental Status Sepsis Action Taken by Nursing Laboratory Data Result diagrams: 03/20/22 09:42 03/20/22 09:42 Lab Results 03/20/22 03/20/22 03/20/22 Range/Units 09:11 09:42 09:42 WBC 6.27 (4.8-10.8) K/ul RBC 4.26 (3.93-5.22) M/uL Hgb 12.7 (12.0-16.0) g/dl Hct 37.8 (34.1-44.9) % MCV 88.7 (80.0-100.0) fL MCH 29.8 (25.0-34.0) pg MCHC 33.6 (32.0-36.0) g/dL RDW Std Deviation 44.0 (36.4-46.3) fL RDW Coeff of Dilia 13.6 (11.5-14.5) % Plt Count 236 (130-400) K/uL MPV 9.6 (9.4-12.3) fL Immature Gran % (Auto) 0.2 % Neut % (Auto) 59.5 % Lymph % (Auto) 25.0 % [place] % (Auto) 11.5 % Eos % (Auto) 3.0 % Baso % (Auto) 0.8 % Neut # (Auto) 3.73 (1.4-6.5) K/uL Lymph # (Auto) 1.57 (1.2-3.4) K/uL [place] # (Auto) 0.72 (0.24-0.82) K/uL Eos # (Auto) 0.19 (0-0.50) K/uL Baso # (Auto) 0.05 (0-0.2) K/uL Immature Gran # (Auto) 0.01 (0.00-0.02) K/uL PT 10.3 (9.0-12.0) Seconds INR 1.0 (0.9-1.1) APTT 33.3 H (21.0-31.0) Seconds PTT Ratio 1.2 Sodium (136-145) mmol/L Potassium (3.5-5.1) mmol/L Chloride (98-107) mmol/L Carbon Dioxide (21-32) mmol/L Anion Gap (3-11) BUN (6-23) mg/dl Creatinine (0.6-1.2) mg/dl Est Cr Clr Drug Dosing ml/min Est GFR ( Amer) ml/min Est GFR (Non-Af Amer) ml/min BUN/Creatinine Ratio (10-20) Glucose (70-99(Fasting)) mg/dl Calcium (8.5-10.1) mg/dl Magnesium (1.7-2.4) mg/dl Total Bilirubin (0.2-1.0) mg/dl Direct Bilirubin (0-0.2) mg/dl AST (13-39) U/L ALT (7-52) U/L Alkaline Phosphatase (34-104) U/L Troponin I High Sens (0-14) pg/ml Total Protein (6.0-8.3) gm/dl Albumin (3.4-5.0) gm/dl Urine Color Yellow Urine Appearance Clear (Clear) Urine pH 6.0 (4.5-7.5) Ur Specific [place] 1.023 (1.000-1.030) Urine Protein Negative (Negative) Urine Glucose (UA) Negative (Negative) Urine Ketones Negative (Negative) Urine Blood Negative (Negative) Urine Nitrite Negative (Negative) Urine Bilirubin Negative (Negative) Urine Urobilinogen Negative (Negative) Ur Leukocyte Esterase Negative (Negative) SARS-CoV-2, RNA, NAAT (NEGATIVE) 03/20/22 03/20/22 Range/Units 09:42 11:15 WBC (4.8-10.8) K/ul RBC (3.93-5.22) M/uL Hgb (12.0-16.0) g/dl Hct (34.1-44.9) % MCV (80.0-100.0) fL MCH (25.0-34.0) pg MCHC (32.0-36.0) g/dL RDW Std Deviation (36.4-46.3) fL RDW Coeff of Dilia (11.5-14.5) % Plt Count (130-400) K/uL MPV (9.4-12.3) fL Immature Gran % (Auto) % Neut % (Auto) % Lymph % (Auto) % [place] % (Auto) % Eos % (Auto) % Baso % (Auto) % Neut # (Auto) (1.4-6.5) K/uL Lymph # (Auto) (1.2-3.4) K/uL [place] # (Auto) (0.24-0.82) K/uL Eos # (Auto) (0-0.50) K/uL Baso # (Auto) (0-0.2) K/uL Immature Gran # (Auto) (0.00-0.02) K/uL PT (9.0-12.0) Seconds INR (0.9-1.1) APTT (21.0-31.0) Seconds PTT Ratio Sodium 140 (136-145) mmol/L Potassium 3.9 (3.5-5.1) mmol/L Chloride 105 (98-107) mmol/L Carbon Dioxide 32 (21-32) mmol/L Anion Gap 3 (3-11) BUN 13 (6-23) mg/dl Creatinine 0.63 (0.6-1.2) mg/dl Est Cr Clr Drug Dosing 89.3 ml/min Est GFR ( Amer) 112.2 ml/min Est GFR (Non-Af Amer) 96.8 ml/min BUN/Creatinine Ratio 20.6 H (10-20) Glucose 95 (70-99(Fasting)) mg/dl Calcium 9.1 (8.5-10.1) mg/dl Magnesium 1.7 (1.7-2.4) mg/dl Total Bilirubin 0.3 (0.2-1.0) mg/dl Direct Bilirubin 0.0 (0-0.2) mg/dl AST 21 (13-39) U/L ALT 27 (7-52) U/L Alkaline Phosphatase 94 (34-104) U/L Troponin I High Sens 2.7 (0-14) pg/ml Total Protein 6.1 (6.0-8.3) gm/dl Albumin 3.7 (3.4-5.0) gm/dl Urine Color Urine Appearance (Clear) Urine pH (4.5-7.5) Ur Specific [place] (1.000-1.030) Urine Protein (Negative) Urine Glucose (UA) (Negative) Urine Ketones (Negative) Urine Blood (Negative) Urine Nitrite (Negative) Urine Bilirubin (Negative) Urine Urobilinogen (Negative) Ur Leukocyte Esterase (Negative) SARS-CoV-2, RNA, NAAT NEGATIVE (NEGATIVE) Administered Medications Miscellaneous (Fentanyl Patch Remove & Waste) 1 each N/A Q3D LEO Stop: 04/19/22 13:35 Last Admin: 03/20/22 17:43 Dose: Not Given Documented By: SHERLY Miscellaneous (Check Fentanyl Patch Placement) 1 each N/A QS LEO Stop: 04/19/22 15:59 Last Admin: 03/20/22 17:42 Dose: 1 each Documented By: SHERLY Ropinirole HCl (Ropinirole Hcl 1 Mg Tablet) 1 mg PO BID LEO Stop: 04/19/22 20:59 Last Admin: 03/20/22 20:10 Dose: 1 mg Documented By: [id number] Discontinued Medications Gadobutrol (Gadobutrol 65ml Vial) 8 ml IV ONCE ONE Stop: 03/20/22 19:15 Last Admin: 03/20/22 19:15 Dose: 8 ml Documented By: FRANCIS Hydromorphone HCl (Hydromorphone Inj 1 Mg/Ml Syringe) 1 mg IV NOW STA Stop: 03/20/22 09:25 Last Admin: 03/20/22 09:41 Dose: 1 mg Documented By: ZAC Hydromorphone HCl (Hydromorphone Inj 1 Mg/Ml Syringe) 1 mg IV NOW STA Stop: 03/20/22 10:53 Last Admin: 03/20/22 11:00 Dose: 1 mg Documented By: TRINA Ioversol (Optiray 320 500ml) 114 ml IV ONCE ONE Stop: 03/20/22 10:46 Last Admin: 03/20/22 10:39 Dose: 114 ml Documented By: BRAnastasiya Oxycodone HCl (Oxycodone Hcl Ir 5 Mg Tab (Immediate Release)) 10 mg PO QID PRN PRN Reason: Pain Stop: 04/03/22 14:07 Last Admin: 03/20/22 15:45 Dose: 10 mg Documented By: BONGB Oxycodone HCl (Oxycodone Hcl Ir 5 Mg Tab (Immediate Release)) 10 mg PO NOW STA Stop: 03/20/22 20:31 Last Admin: 03/20/22 20:47 Dose: 10 mg Documented By: [id number] Ropinirole HCl (Ropinirole Hcl 1 Mg Tablet) 1 mg PO NOW STA Stop: 03/20/22 12:45 Last Admin: 03/20/22 13:02 Dose: 1 mg Documented By: TRINA Imaging Data Radiologist's Impression: Head CTA 03/20/22 09:24 CT ANGIOGRAM OF THE BRAIN COMBO CLINICAL HISTORY: Ataxia. Right arm weakness. COMPARISON STUDY: CT of the brain dated 10/31/2018. TECHNIQUE: Unenhanced axial CT scan of the brain is performed. Subsequently, following the IV administration of 114 cc of Optiray 320, CT angiogram of the brain was performed from the skull base to the vertex. Images are reviewed in the axial, sagittal, and coronal planes. 3-D MIPS images are created and assessed. IV contrast was administered without complication. A dose lowering technique was utilized adhering to the principles of ALARA. FINDINGS: Brain parenchyma: The brain parenchyma is normal in appearance. There is no hemorrhage, mass effect, or evidence of acute territorial ischemia by CT criteria. There is no evidence of enhancing mass lesion on the angiogram phase images. No extra-axial fluid collection is seen. Fernandez-white matter differentiation is preserved. Ventricles, sulci, and cisterns: Normal in configuration. CT angiogram of the brain: There is moderate atherosclerotic calcification of the cavernous carotid and vertebral arteries. The internal carotid arteries are widely patent, as are the anterior and middle cerebral arteries. The vertebrobasilar system and posterior cerebral arteries are widely patent. The vertebral arteries are codominant. There is no aneurysm, high-grade stenosis, or focal vessel cutoff identified throughout the intracranial circulation. The distal cervical portions of the internal carotid arteries demonstrate a beaded appearance suggesting fibromuscular dysplasia. Dural sinuses: Clear as visualized. Orbits: The bony orbits are intact. The orbital contents are normal as visualized. Sinuses and mastoids: The paranasal sinuses are clear. There is a left mastoid effusion. The right mastoid air cells are well pneumatized. Calvarium: Unremarkable. IMPRESSION: 1. There is no hemorrhage, mass effect, or evidence of acute territorial ischemia by CT criteria. 2. Unremarkable CT angiogram of the brain. 3. Imaged portions of the distal cervical internal carotid arteries demonstrate a beaded appearance. The appearance is typical for fibromuscular dysplasia. ACT 112: Negative or not required by law. Electronically signed by: Howie Burgess M.D. 03/20/2022 11:04 AM Neck CTA 03/20/22 09:24 CT angio neck with con CLINICAL HISTORY: ataxia, right arm weakness x 48 hrs. Stroke eval TECHNIQUE: CT angiography of the neck was performed following intravenous administration of iodinated contrast. Coronal and sagittal MIPS were obtained from the axial data set and were submitted for review. Automated dose lowering techniques and/or adjustment according to patient size were utilized for this examination. All measurements were calculated based on NASCET criteria. CT DOSE: 958.82 mGy.cm Comparison: None available at the time of this dictation. FINDINGS: Biapical scarring is seen. CTA Neck: A 3 vessel aortic arch is shown. There is no significant atherosclerotic plaque in the aortic arch or the origins of the innominate, left common carotid, and left subclavian arteries. The common carotid, external carotid, cervical segments of the internal carotid arteries, and the cervical segments of the vertebral arteries are patent without hemodynamically significant stenosis. The left vertebral artery is dominant. IMPRESSION: No occlusion, hemodynamically significant stenosis, or dissection in the major cervical arteries. Assessment of stenosis of the internal carotid arteries is based on NASCET criteria. ACT 112: Negative or not required by law. Electronically signed by: Cortez Sol M.D. 03/20/2022 10:58 AM Discharge Plan Visit Data Chief Complaint: Dizziness Stated Complaint: DIZZY ED Provider: Arun Jeff Discharge Problem: Acute right-sided weakness, Ataxia, Stroke-like symptoms Patient Disposition: Admitted As Inpatient Discharge Instructions Interventions: ED Discharge Assessment Last Done: 03/20/22 12:58
[2022-03-20 09:47] LABS: Appearance Urine Clear (Clear); Bilirubin Urine Negative (Negative); Blood Urine Negative (Negative); Color Urine Yellow; Glucose Urine UA Negative (Negative); Ketones Urine Negative (Negative); Leukocyte Esterase Urine Negative (Negative); Nitrite Urine Negative (Negative); Protein Urine Negative (Negative); Specific Gravity Urine 1.023 (1.000-1.030); Urobilinogen Urine Negative (Negative)
[2022-03-20 09:57] LABS: Basophils # (auto) 0.05 K/uL (0-0.2); Basophils % (auto) 0.8 %; Eosinophils # (auto) 0.19 K/uL (0-0.50); Hematocrit (blood only) 37.8 % (34.1-44.9); Hemoglobin 12.7 g/dl (12.0-16.0); Immature Granulocytes # (auto) 0.01 K/uL (0.00-0.02); Immature Granulocytes % (auto) 0.2 %; Lymphocytes # (auto) 1.57 K/uL (1.2-3.4); Mean Corpuscular Hemoglobin 29.8 pg (25.0-34.0); Mean Corpuscular Hgb Conc 33.6 g/dL (32.0-36.0); Mean Corpuscular Volume 88.7 fL (80.0-100.0); Mean Platelet Volume 9.6 fL (9.4-12.3); Monocytes # (auto) 0.72 K/uL (0.24-0.82); Monocytes % (auto) 11.5 %; Neutrophils # (auto) 3.73 K/uL (1.4-6.5); Neutrophils % (auto) 59.5 %; Platelet Count 236 K/uL (130-400); RDW Coefficient of Variation 13.6 % (11.5-14.5); Red Blood Count 4.26 M/uL (3.93-5.22); White Blood Count 6.27 K/ul (4.8-10.8)
[2022-03-20 10:08] LABS: Partial Thromboplastin Ratio 1.2; Partial Thromboplastin Time 33.3 Seconds (21.0-31.0); Prothrombin Time 10.3 Seconds (9.0-12.0)
[2022-03-20 10:22] LABS: Troponin I High Sensitivity 2.7 pg/ml (0-14)
[2022-03-20 10:23] LABS: Albumin Level 3.7 gm/dl (3.4-5.0); BUN Creatinine Ratio 20.6 (10-20); Bilirubin,Total 0.3 mg/dl (0.2-1.0); Calcium 9.1 mg/dl (8.5-10.1); Creatinine Clr Calc Pharmacy 89.3 ml/min; Est GFR (African American) 112.2 ml/min; Est GFR (Non-African American) 96.8 ml/min; Magnesium 1.7 mg/dl (1.7-2.4); Potassium 3.9 mmol/L (3.5-5.1); Total Protein 6.1 gm/dl (6.0-8.3)
[2022-03-20] MEDS ORDERED: OPTIRAY 320 500ml IV ONE (10:45)
--- NOTE | 2022-03-20 11:00 | CT Scan Report ---
CT angio neck with con CLINICAL HISTORY: ataxia, right arm weakness x 48 hrs. Stroke eval TECHNIQUE: CT angiography of the neck was performed following intravenous administration of iodinated contrast. Coronal and sagittal MIPS were obtained from the axial data set and were submitted for rev iew. Automated dose lowering techniques and/or adjustment according to patient size were utilized fo r this examination. All measurements were calculated based on NASCET criteria. CT DOSE: 958.82 mGy.cm Comparison: None available at the time of this dictation. FINDINGS: Biapical scarring is seen. CTA Neck: A 3 vessel aortic arch is shown. There is no significant atherosclerotic plaque in the aor tic arch or the origins of the innominate, left common carotid, and left subclavian arteries. The c ommon carotid, external carotid, cervical segments of the internal carotid arteries, and the cervical segments of the vertebral arteries are patent without hemodynamically significant stenosis. The left vertebral artery is dominant. IMPRESSION: No occlusion, hemodynamically significant stenosis, or dissection in the major cervical arteries. Assessment of stenosis of the internal carotid arteries is based on NASCET criteria. ACT 112: Negative or not required by law. Electronically signed by: Cortez Sol M.D. 03/20/2022 10:58 AM
--- NOTE | 2022-03-20 11:06 | CT Scan Report ---
CT ANGIOGRAM OF THE BRAIN COMBO CLINICAL HISTORY: Ataxia. Right arm weakness. COMPARISON STUDY: CT of the brain dated 10/31/2018. TECHNIQUE: Unenhanced axial CT scan of the brain is performed. Subsequently, following the IV adminis tration of 114 cc of Optiray 320, CT angiogram of the brain was performed from the skull base to the vertex. Images are reviewed in the axial, sagittal, and coronal planes. 3-D MIPS images are created a nd assessed. IV contrast was administered without complication. A dose lowering technique was utiliz ed adhering to the principles of ALARA. FINDINGS: Brain parenchyma: The brain parenchyma is normal in appearance. There is no hemorrhage, mass effect, or evidence of acute territorial ischemia by CT criteria. There is no evidence of enhancing mass lesi on on the angiogram phase images. No extra-axial fluid collection is seen. Fernandez-white matter differen tiation is preserved. Ventricles, sulci, and cisterns: Normal in configuration. CT angiogram of the brain: There is moderate atherosclerotic calcification of the cavernous carotid a nd vertebral arteries. The internal carotid arteries are widely patent, as are the anterior and middl e cerebral arteries. The vertebrobasilar system and posterior cerebral arteries are widely patent. Th e vertebral arteries are codominant. There is no aneurysm, high-grade stenosis, or focal vessel cutof f identified throughout the intracranial circulation. The distal cervical portions of the internal ca rotid arteries demonstrate a beaded appearance suggesting fibromuscular dysplasia. Dural sinuses: Clear as visualized. Orbits: The bony orbits are intact. The orbital contents are normal as visualized. Sinuses and mastoids: The paranasal sinuses are clear. There is a left mastoid effusion. The right ma stoid air cells are well pneumatized. Calvarium: Unremarkable. IMPRESSION: 1. There is no hemorrhage, mass effect, or evidence of acute territorial ischemia by CT criteria. 2. Unremarkable CT angiogram of the brain. 3. Imaged portions of the distal cervical internal carotid arteries demonstrate a beaded appearance. The appearance is typical for fibromuscular dysplasia. ACT 112: Negative or not required by law. Electronically signed by: Howie Burgess M.D. 03/20/2022 11:04 AM
--- NOTE | 2022-03-20 12:05 | History & Physical Report ---
Date of Service March 20, 2022 Assessment & Plan (1) Acute right-sided weakness: Plan: - Right sided weakness/clumsiness with pain ongoing x2 days w/ associate dizziness. - No stroke alert called as symptoms present for 48 hours. Not loaded with aspirin given GI bleed history. - CT head unremarkable, CTA with evidence of fibromuscular dysplasia of carotid artiers. - Patient has a history of hypertensive emergencies with previous CVA identified on imaging. - Renal artery US ordered. - Ddx includes CVA given history of such, as well as MSK/nerve impingement with her reported history of some form of neck damage/? c spine compression fractures. - MRI brain w/ w/o contrast given cancer history, as well as MRI c spine to r/o nerve impingement. - Echo in a.m. - CBC, BMP, HbA1c, lipid panel in a.m. - N.p.o. for now. - PT, OT, ST to evaluate in a.m. - Consult neurology for recommendations regarding antiplatelet therapy, given history of previous stroke as well as GI bleed hx, alresdy on Xarelto. - Consult vascular surgery regarding CTA findings concerning for fibromuscular dysplasia. (2) Dizziness: Plan: - x 2 days with sense of being on a boat, unbalanced, unsteady on her feet. Without any lower extremity weakness/numbness. - CVA vs vertigo. - Zofran prn for nausea, meclizine prn for dizziness. - PT to eval, perform Adriana-Hallpike maneuver. (3) Fibromuscular dysplasia of carotid artery: Plan: - Findings on head/neck CTA. - Renal artery US ordered for further eval. - Reports history of multiple episodes of hypertensive emergencies. (4) Ovarian cancer: Plan: - Metastatic to colon, stomach, abdominal wall, receiving monthly injections at [facility]. - Chronic pain: fentanyl patches, oxycodone. (5) History of pulmonary embolus (PE): Plan: - Anticoagulated on Xarelto, last dose this AM. No missed doses. (6) Hypothyroidism: Plan: - Synthroid 75 mcg daily. (7) Restless leg syndrome: Plan: - Ropinirole TID. (8) Hypertension: Plan: - Continue lisinopril, amlodipine. (9) Depression: Plan: - Continue venlafaxine, Wellbutrin. Plan - Admit to med/tele. - SCDs, continue Xarelto for VTE ppx. - Full Code. History of Present Illness Chief Complaint: right arm weakness, dizziness x2 days Primary Care Provider: Arun Chapman Evangelina Lenz is a 61-year-old female with past medical history of PEs, GI bleed, metastatic ovarian cancer, hypothyroidism, RLS, and hypertension who is presenting today with weakness. 2 days ago, she developed right hand weakness/clumsiness and pain when using it. She is also dizzy with ambulation as if she is on the boat and feels like she is rocking back and forth, she is generally off balance. No falls. She has been mildly nauseous with this, no vomiting. She did experience a headache 2 days ago with the onset of symptoms which is unusual for her, but took [id number] medications which alleviated it. She does have chronic pain from her cancer, as well as chronic compression fractures in the lumbar region and also has chronic neck pain. It has not been any better or worse lately. Her neck pain is worse and dizziness exacerbated when moving head left and right. No ringing in ears. No other neuro deficits. Upon presentation, she is mildly hypertensive, his vital signs within normal. Her head CT, as well as head and neck CTA did not show evidence of stroke, hemorrhage, mass-effect, however there is evidence for possible fibromuscular dysplasia. Her labs are unremarkable. Allergies Allergy/AdvReac Type Severity Reaction Status Date / Time amoxicillin Allergy Mild HIVES Verified 03/20/22 12:52 clavulanic acid Allergy Mild HIVES Verified 03/20/22 12:52 Home Medications Medication Instructions Recorded Confirmed Type ergocalciferol (vitamin D2) 1,250 50,000 unit PO WK 07/23/18 03/20/22 History mcg (50,000 unit) capsule (Vitamin D2) linaclotide 145 mcg capsule 145 mcg PO QAM 09/09/19 03/20/22 History (Linzess) rivaroxaban 20 mg tablet (Xarelto) 20 mg PO QAM 09/09/19 03/20/22 History venlafaxine 150 mg 150 mg PO QAM 09/09/19 03/20/22 History capsule,extended release 24 hr ropinirole 1 mg tablet 1 mg PO TID 03/22/20 03/20/22 History venlafaxine 75 mg capsule,extended 75 mg PO QAM 03/22/20 03/20/22 History release 24 hr alendronate 70 mg tablet 70 mg PO WK 11/18/20 03/20/22 History fentanyl 25 mcg/hr transdermal 25 mcg topical Q72H PRN Pain 02/24/21 03/20/22 History patch lisinopril 40 mg tablet (Zestril) 40 mg PO QAM 02/24/21 03/20/22 History ondansetron 4 mg disintegrating 4 mg PO Q8H PRN nausea and 02/24/21 03/20/22 Rx tablet vomiting #30 tabs amlodipine 5 mg tablet 5 mg PO DAILY 03/20/22 03/20/22 History bupropion HCl 150 mg tablet,12 hr 150 mg PO BID 03/20/22 03/20/22 History sustained-release levothyroxine 88 mcg tablet 88 mcg PO DAILY 03/20/22 03/20/22 History oxycodone 10 mg tablet 5 mg PO Q4 PRN Pain 03/20/22 03/20/22 History Past Med/Surg History Medical History (Updated 03/20/22 @ 14:16 by Caryn Rice PA-C) Cancer of colon Cancer of ovary (~2006) Colitis Hypothyroidism Ileostomy in place Pulmonary embolism Restless leg syndrome SBO (small bowel obstruction) Surgical History H/O ileostomy Hx of gastric bypass Family History Other Cancer Diabetes Gallbladder disease Heart disease Hypertension Social History Smoking Status: Never smoker Hx Alcohol Use: No Hx Substance Use: No Preferred Language: Icelandic Communication Ability: Effective Parachute Packer Required: No Beliefs That Will Affect Care: None marital status: Current Living Situation: Spouse current occupational status: unemployed Feels Safe at Home: Yes Assistive Devices: None Review of Systems Review of Systems: Constitutional: No fever/chills, weakness, fatigue, myalgias, anorexia, night sweats Eyes: No diplopia, no worsening or blurred vision ENT: normal hearing, no trouble swallowing Respiratory: No cough, sputum, dyspnea at rest or on exertion Cardiovascular: No chest pain, tightness or palpitations Abdomen: No pain, nausea, vomiting, diarrhea or constipation : Denies dysuria, hematuria, increased urgency/frequency, urinary retention Musculoskeletal: No joint pain, calf pain, swelling Neurologic: right arm pain with clumsiness/weakness x 2 days; dizziness upon ambulation x 2 days; Psychiatric: No anxiety or depression Skin: No rash or itch Physical Exam Physical Exam: General: awake, alert, no apparent distress Head: Normocephalic, atraumatic ENT: PERRL, EOMI, no pharyngeal exudate, mucous membranes moist Chest: Clear to auscultation, on room air, no adventitious breath sounds Cardiac: Regular rate and rhythm, no murmur, no JVD, normal peripheral pulses, good capillary refill Abdominal: NABS x 4 quadrants, soft, nontender to palpation, no rebound, guarding or tenderness Extremities: pain with palpation of c spine; Normal inspection, no peripheral edema or erythema, calfs nontender to palpation Psych: Normal mood and affect Neuro: AAO x 3, decreased clerk cashier 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 on right; otherise strength intact bilaterally and rated 5/5, no motor deficits, speech is clear, no peripheral sensory deficits Skin: no rash or erythema Results & Data Results & Data ([facility]) Vital Signs (Past 12 Hours) Vital Signs Temp Pulse Pulse Resp BP BP Pulse Ox 03/20/22 11:01 78 23 166/91 H 96 03/20/22 09:53 68 18 159/88 H 96 03/20/22 09:53 94 03/20/22 09:01 36.5 C 82 18 153/78 H 96 O2 Del Method 03/20/22 11:01 Room Air 03/20/22 09:53 Room Air 03/20/22 09:53 Room Air 03/20/22 09:01 Room Air Laboratory Results Abnormal lab results 03/20/22 03/20/22 Range/Units 09:42 09:42 APTT 33.3 H (21.0-31.0) Seconds BUN/Creatinine Ratio 20.6 H (10-20) Diagnostic Findings Head CTA 03/20/22 09:24 CT ANGIOGRAM OF THE BRAIN COMBO CLINICAL HISTORY: Ataxia. Right arm weakness. COMPARISON STUDY: CT of the brain dated 10/31/2018. TECHNIQUE: Unenhanced axial CT scan of the brain is performed. Subsequently, following the IV administration of 114 cc of Optiray 320, CT angiogram of the brain was performed from the skull base to the vertex. Images are reviewed in the axial, sagittal, and coronal planes. 3-D MIPS images are created and assessed. IV contrast was administered without complication. A dose lowering technique was utilized adhering to the principles of ALARA. FINDINGS: Brain parenchyma: The brain parenchyma is normal in appearance. There is no hemorrhage, mass effect, or evidence of acute territorial ischemia by CT criteria. There is no evidence of enhancing mass lesion on the angiogram phase images. No extra-axial fluid collection is seen. Fernandez-white matter differentiation is preserved. Ventricles, sulci, and cisterns: Normal in configuration. CT angiogram of the brain: There is moderate atherosclerotic calcification of the cavernous carotid and vertebral arteries. The internal carotid arteries are widely patent, as are the anterior and middle cerebral arteries. The vertebrobasilar system and posterior cerebral arteries are widely patent. The vertebral arteries are codominant. There is no aneurysm, high-grade stenosis, or focal vessel cutoff identified throughout the intracranial circulation. The distal cervical portions of the internal carotid arteries demonstrate a beaded appearance suggesting fibromuscular dysplasia. Dural sinuses: Clear as visualized. Orbits: The bony orbits are intact. The orbital contents are normal as visualized. Sinuses and mastoids: The paranasal sinuses are clear. There is a left mastoid effusion. The right mastoid air cells are well pneumatized. Calvarium: Unremarkable. IMPRESSION: 1. There is no hemorrhage, mass effect, or evidence of acute territorial isc hemia by CT criteria. 2. Unremarkable CT angiogram of the brain. 3. Imaged portions of the distal cervical internal carotid arteries demonstrate a beaded appearance. The appearance is typical for fibromuscular dysplasia. ACT 112: Negative or not required by law. Electronically signed by: Howie Burgess M.D. 03/20/2022 11:04 AM Neck CTA 03/20/22 09:24 CT angio neck with con CLINICAL HISTORY: ataxia, right arm weakness x 48 hrs. Stroke eval TECHNIQUE: CT angiography of the neck was performed following intravenous administration of iodinated contrast. Coronal and sagittal MIPS were obtained from the axial data set and were submitted for review. Automated dose lowering techniques and/or adjustment according to patient size were utilized for this examination. All measurements were calculated based on NASCET criteria. CT DOSE: 958.82 mGy.cm Comparison: None available at the time of this dictation. FINDINGS: Biapical scarring is seen. CTA Neck: A 3 vessel aortic arch is shown. There is no significant atherosclerotic plaque in the aortic arch or the origins of the innominate, left common carotid, and left subclavian arteries. The common carotid, external carotid, cervical segments of the internal carotid arteries, and the cervical segments of the vertebral arteries are patent without hemodynamically significant stenosis. The left vertebral artery is dominant. IMPRESSION: No occlusion, hemodynamically significant stenosis, or dissection in the major cervical arteries. Assessment of stenosis of the internal carotid arteries is based on NASCET criteria. ACT 112: Negative or not required by law. Electronically signed by: Cortez Sol M.D. 03/20/2022 10:58 AM ECG Additional Comments: Normal sinus rhythm with sinus arrhythmia Normal ECG When compared with ECG of 22-MAR-2020 11:05, No significant change was found Code Status & VTE Plan Code Status Full Code. Supervising Physician Co-Signing Physician Notes Patient seen and examined, chart reviewed, case discussed with Caryn Rice PA-C and I agree with the assessment and plan as above except as otherwise noted Labs and images reviewed 61-year-old female with past medical history of PE, stroke, metastatic ovarian cancer on Xarelto not antiplatelet agents due to history of severe GI bleed who presents with right-sided weakness and pain for 48 hours. Head and neck CTA shows no significant stenosis/dissection/occlusion, no evidence of acute infarct/stroke/mass/ischemia. Right-sided weakness/pain for 48 hours, no evidence of stroke on initial CT. Given pain and radiating symptoms with history of metastatic cancer MRI pending for cervical etiology eval. Follow-up MRI of the brain to complete stroke work- up is pending. tPA is contraindicated due to time of onset. Suspected carotid Fibromuscular dysplasia noted CT. Patient not on antiplatelets due to history of severe bleed. Does have hx of HTN emergency, given FMD findings and HTN renal artery imaging ordered and to be discussed w/ vascular. Continue blood pressure control, lipid panel pending. Continue management of chronic issues as above. PG Care Time/CCT Total # of Minutes Spent Total Time Spent with Patient: Total time spent is greater than 50% in coordination of care (as documented) at patient's floor/unit and/or counseling patient: Coding Level of Care Code 78948 Initial Inpt Care Lvl 3 Diagnoses Acute right-sided weakness R53.1 Dizziness R42 Fibromuscular dysplasia of carotid artery I77.3 Ovarian cancer C56.9 History of pulmonary embolus (PE) Z86.711 Hypothyroidism E03.9 Restless leg syndrome G25.81 Hypertension I10 Depression F32.A
[2022-03-20] MEDS ORDERED: rOPINIRole HCL 1 MG TABLET PO STA (12:44)
[2022-03-20] MEDS ORDERED: ONDANSETRON INJ 2 MG/ML 2 ML VIAL IV PRN (13:36)
[2022-03-20] MEDS ORDERED: CYCLOBENZAPRINE HCL 10 MG TAB PO PRN (13:36)
[2022-03-20] MEDS ORDERED: POLYETHYLENE (MIRALAX) 17 GM PACK PO PRN (13:36)
[2022-03-20] MEDS ORDERED: fentaNYL 25 MCG/HR TDSY TD PRN (13:36)
[2022-03-20] MEDS ORDERED: MECLIZINE 12.5 MG TAB PO PRN (13:36)
[2022-03-20] MEDS ORDERED: ALUMINUM/MAGNESIUM SUSP 30 ML UDC PO PRN (13:36)
[2022-03-20] MEDS ORDERED: ACETAMINOPHEN 325 MG TAB PO PRN (13:36)
[2022-03-20] MEDS ORDERED: PHARMACIST DISCHARGE MED REC CONSULT PRN (13:36)
[2022-03-20] MEDS ORDERED: oxyCODONE HCL IR 5 MG TAB (IMMEDIATE RELEASE) PO PRN (14:08)
--- NOTE | 2022-03-20 15:01 | Ultrasound Report ---
US duplex renal artery CLINICAL HISTORY: ? fibromuscular dysplasia. Assess for renal artery stenosis. COMPARISON STUDY: Abdomen and pelvis CT 12/10/2021. FINDINGS: The peak systolic velocity within the right renal artery is 69 cm/s and the left renal andrew ry is 69 cm/s. The bilateral renal veins are patent. Resistive indices of the bilateral renal arcuate arteries are within normal limits. No hydronephrosis. IMPRESSION: No evidence for renal artery stenosis. ACT 112: Negative or not required by law. Electronically signed by: Jaems Moss M.D. 03/20/2022 3:00 PM
--- NOTE | 2022-03-20 16:37 | XCELERA ---
[id number] \\[id number]
[2022-03-20] MEDS: CHECK fentaNYL PATCH PLACEMENT SCH ×2 (17:42→23:54)
[2022-03-20] MEDS ORDERED: GADOBUTROL 65ML VIAL IV ONE (19:14)
[2022-03-20] MEDS: rOPINIRole HCL 1 MG TABLET PO SCH (20:10)
[2022-03-20] MEDS ORDERED: oxyCODONE HCL IR 5 MG TAB (IMMEDIATE RELEASE) PO STA (20:30)
[2022-03-21] MEDS: oxyCODONE HCL IR 5 MG TAB (IMMEDIATE RELEASE) PO PRN ×4 (03:36→19:45)
--- NOTE | 2022-03-21 04:51 | Electrocardiogram Report ---
Test Reason : Blood Pressure : / mmHG Vent. Rate : 071 BPM Atrial Rate : 071 BPM P-R Int : 166 ms QRS Dur : 080 ms QT Int : 386 ms P-R-T Axes : 051 032 029 degrees QTc Int : 419 ms Normal sinus rhythm with sinus arrhythmia Normal ECG When compared with ECG of 22-MAR-2020 11:05, No significant change was found Confirmed by Stuart Carney ([id number]) on 03/21/2022 4:50:53 AM Referred By: REFERRED SELF Confirmed By:Stuart Carney
[2022-03-21] MEDS: LEVOTHYROXINE SODIUM 50 MCG TABLET PO SCH (06:23)
--- NOTE | 2022-03-21 07:25 | Magnetic Resonance Report ---
MRI OF THE BRAIN COMBO CLINICAL HISTORY: Dizziness and lightheadedness. Stroke like symptoms. COMPARISON STUDY: CT of the brain dated 03/30/2022. MRI of the brain dated 10/07/2013. TECHNIQUE: MRI of the brain was performed utilizing various T1 and T2-weighted sequences in the axial , sagittal, and coronal planes. Contrast-enhanced sequences were acquired following the administratio n of 8 cc of Gadavist. The examination is modestly degraded by motion artifact. FINDINGS: Brain parenchyma: There is minimal microangiopathic disease. There is no hemorrhage or mass effect. T here is no restricted diffusion to suggest acute ischemia. No enhancing mass lesion is identified on the postcontrast images. Fernandez-white matter differentiation is preserved. No extra-axial fluid collect ion is seen. The cerebellar tonsils are normal in configuration. Ventricles, sulci, and cisterns: Normal in configuration. Pituitary and sella: Unremarkable. Intracranial vasculature: Normal flow voids are maintained at the skull base. Orbits: The bony orbits are grossly intact. Orbital contents are normal in appearance. Sinuses and mastoids: Clear. Calvarium: Unremarkable. Cervical cord: Partially visualized cervical spinal cord is normal in morphology and signal intensity . IMPRESSION: No acute intracranial abnormality. ACT 112: Negative or not required by law. Electronically signed by: Howie Burgess M.D. 03/21/2022 7:24 AM
[2022-03-21 08:12] LABS: Basophils # (auto) 0.05 K/uL (0-0.2); Basophils % (auto) 0.8 %; Eosinophils # (auto) 0.24 K/uL (0-0.50); Eosinophils % (auto) 4.1 %; Hematocrit (blood only) 41.5 % (34.1-44.9); Hemoglobin 13.6 g/dl (12.0-16.0); Immature Granulocytes # (auto) 0.01 K/uL (0.00-0.02); Immature Granulocytes % (auto) 0.2 %; Lymphocytes # (auto) 1.79 K/uL (1.2-3.4); Lymphocytes % (auto) 30.4 %; Mean Corpuscular Hemoglobin 29.6 pg (25.0-34.0); Mean Corpuscular Hgb Conc 32.8 g/dL (32.0-36.0); Mean Corpuscular Volume 90.4 fL (80.0-100.0); Mean Platelet Volume 9.7 fL (9.4-12.3); Monocytes # (auto) 0.61 K/uL (0.24-0.82); Monocytes % (auto) 10.4 %; Neutrophils # (auto) 3.19 K/uL (1.4-6.5); Neutrophils % (auto) 54.1 %; Platelet Count 256 K/uL (130-400); RDW Coefficient of Variation 13.7 % (11.5-14.5); RDW Standard Deviation 45.3 fL (36.4-46.3); Red Blood Count 4.59 M/uL (3.93-5.22); White Blood Count 5.89 K/ul (4.8-10.8)
--- NOTE | 2022-03-21 08:18 | Magnetic Resonance Report ---
MRI OF THE CERVICAL SPINE WITHOUT CONTRAST CLINICAL HISTORY: Neck pain, right pain, numbness. COMPARISON: CTA of the neck March 20, 2022. TECHNIQUE: Utilizing a 1.5 Radha magnet and dedicated coil, multiplanar, multiecho imaging of the ce rvical spine was performed without IV contrast. FINDINGS: This exam is mildly compromised by motion artifact. Cervical cord signal and caliber are normal. Appa rent increased cord signal at the C6 level is likely artifactual. No intracanalicular mass or fluid c ollection is present. Paravertebral soft tissues are unremarkable. No suspicious marrow replacement w ithin the cervical spine is present. There is no fracture. Alignment is anatomic. Paravertebral soft tissues are unremarkable. There is mild multilevel degenerative disc disease and severe facet arthros is. C2-C3: Central canal and right neural foramen are patent. There is mild narrowing of the left neural foramen due to facet arthrosis. C3-C4: There is mild disc space narrowing with disc bulge. This slightly effaces the ventral thecal s ac with mild central canal stenosis. Moderate to severe left and moderate right neural foraminal sten osis is present due to facet arthrosis and uncovertebral hypertrophy. C4-C5: There is minimal posterior disc osteophyte complex. This effaces the ventral thecal sac. No s ignificant central canal stenosis. Moderate to severe left neural foraminal stenosis is present. Ther e is mild right neural foraminal stenosis. C5-C6: The central canal stenosis. There is mild left neural foraminal stenosis. Right neural forame n is patent. C6-C7: Posterior disc osteophyte complex effaces the ventral thecal sac. There is mild central canal stenosis. Neural foramen are patent. C7-T1: Central canal and neural foramen are patent. IMPRESSION: 1. No acute findings within the cervical spine by MRI. 2. Mild multilevel degenerative disc disease and severe facet arthrosis within the cervical spine. 3. Mild central canal narrowing at several levels. Moderate to severe multilevel neural foraminal sara nosis, as detailed above. ACT 112: Negative or not required by law. Electronically signed by: Austin Davidson M.D. 03/21/2022 8:17 AM
[2022-03-21 08:20] LABS: Estimated Average Glucose 126 mg/dl
[2022-03-21] MEDS: rOPINIRole HCL 1 MG TABLET PO SCH ×2 (09:01→20:55)
[2022-03-21] MEDS: LINACLOTIDE 145 MCG CAPSULE PO SCH (09:01)
[2022-03-21] MEDS: RIVAROXABAN 20 MG TAB PO SCH (09:01)
[2022-03-21] MEDS: CHECK fentaNYL PATCH PLACEMENT SCH ×3 (09:02→23:52)
[2022-03-21] MEDS: VENLAFAXINE HCL XR 75 MG CAPXR PO SCH (09:02)
[2022-03-21] MEDS: VENLAFAXINE HCL XR 150 MG CAPXR PO SCH (09:02)
[2022-03-21] MEDS: lisinopril 40 MG TAB PO SCH (09:02)
[2022-03-21 09:29] LABS: BUN Creatinine Ratio 15.4 (10-20); Calcium 8.6 mg/dl (8.5-10.1); Chol HDL Ratio 2.9 (0-5); Creatinine Clr Calc Pharmacy 72.1 ml/min; Est GFR (African American) 95.1 ml/min; Est GFR (Non-African American) 82.1 ml/min
--- NOTE | 2022-03-21 09:44 | Neurology Consultation ---
Date of Consultation March 21, 2022 Assessment & Plan (1) Pain in right upper arm: (2) Weakness of right upper extremity: (3) Dizziness: Plan this patient has had a subacute to chronic ( 6 months) history of pain, weakness, and intermittent numbness in the right upper extremity. She also has neck pain. It was much worse over the last 2 days apparently. She had the new onset of dizziness over the last 2 days which seems vertiginous to me. This is improving. On examination currently she has giveaway weakness secondary to pain in the right upper extremity. I am not convinced she has other pathologic weakness. She did not have any lack of sensation in the right upper extremity today and I do not see any weakness in the right lower extremity or face. I believe that the right upper extremity symptoms are likely stemming from the cervical spine. An MRI of the cervical spine without contrast showed degenerative changes but contrast was not given so I cannot exclude metastasis. I suspect she has radiculopathy. MRI of the brain showed no stroke and contrast showed no enhancement so there is no evidence of metastases or tumor. She does have some mild old small vessel ischemic disease. Patient has a history of metastatic ovarian cancer kept mostly stable with monthly injections of Faslodex. There is some evidence of fibromuscular dysplasia in the distal carotid arteries bilaterally but no other vascular stenosis or anomaly was seen. she has a history of hypertension but her blood pressure is fairly well controlled. Recommendations: 1. There is no indication for adding an antiplatelet medication at this time. 2. Consider MRI of the cervical spine with contrast to rule out metastasis. 3. She could get EMG and nerve conduction studies of the right upper extremity as an outpatient, if desired 4. continue physical and occupational therapy. 5. control blood pressure as you are doing, aiming for a mean arterial pressure of 95-100. 6. I will follow up Overall, I spent a total of 100 minutes with this case including review of records, review of MRI films, direct evaluation of the patient at bedside, and discussion of the case with the patient and RN at bedside, and Dr. Connell including differential diagnosis and treatment options. History of Present Illness Reason for Consultation: Patient is a 61-year-old, who I was asked to see at the request of Caryn Rice PA-C, for neurologic consultation regarding new onset weakness, question stroke. Requesting Physician: Caryn Rice PA-C Attending Physician: Tarik Connell MD History of Present Illness this patient has a history of metastatic ovarian cancer discovered in 2006. It spread to her colon and other places of her abdomen. She was treated mostly in [place] and received surgeries and chemotherapy, but no radiation therapy. She is currently getting fulvestrant injections 500 mg monthly at [facility]. About 5 years ago she had multiple PEs followed by (3 years ago) a massive GI bleed. Currently she is on Xarelto and no antiplatelet medication. The patient had some sort of small stroke giving some symptoms in the right arm and face about 2 years ago but I have no details further about this. Apparently she had some confusion and disorientation with this but all the symptoms resolved. She has a history of hypothyroidism and hypertension as well as depression. In addition, about 2 years ago, she had some sort of left greater than right facial movement issues that which was call dystonia. I have no further details regarding this either. Over the last 6 months she has had weakness and pain in her right upper extremity. She will occasionally drop things because of clumsiness in her hand. It started insidiously and has been gradually progressive. the right lower extremity was not involved. The left side was asymptomatic also. the patient has some intermittent numbness in her hand as well. Patient had the onset of "dizziness" about 2 days ago with an increase in the right arm (and possibly leg ) pain and numbness . I gather, after talking to the patient, that the symptoms in the arm and possibly the leg are just more intense and not necessarily new. She arrived to the emergency room March 20 at 9:01 a.m. with a temperature 36.5, pulse 82 and regular, respiratory rate 18, blood pressure 153/78, and O2 saturation 96%. The patient had a questionable weakness in the right upper extremity and a questionable facial droop on the right (but afterwards it was determined that anything seen on the face was "cold"). CBC, Chem profile, urinalysis were unremarkable. CT scan of the head and was unremarkable. CT angiography of the head and neck were unremarkable except for some beating in the distal internal carotid arteries bilaterally, suggesting possible fibromuscu lar dysplasia. A renal artery scan was unremarkable. Echocardiogram was unremarkable except for some mild left ventricular hypertrophy. An MRI of the brain, with and without contrast, showed no stroke and no enhancing lesions that would be seen with metastatic cancer. There was mild old small vessel ischemic disease. I reviewed these films. MRI of the cervical spine without contrast showed multilevel degenerative disease with no obvious cord lesions. Unfortunately, contrast was not given. Overnight she has been in normal sinus rhythm in the 60s with occasional P 80. She feels much better with her dizziness today although she has some slight dizziness with standing up. She has no headache or vision problems. Her pain of the right upper extremity is about the same. The strength in the right upper extremity is about the same as well. It is a dull achy pain that waxes and wanes constantly. She does not have any hand numbness currently. Allergies Allergy/AdvReac Type Severity Reaction Status Date / Time amoxicillin Allergy Mild HIVES Verified 03/20/22 12:52 clavulanic acid Allergy Mild HIVES Verified 03/20/22 12:52 Home Medications Medication Instructions Recorded Confirmed Type ergocalciferol (vitamin D2) 1,250 50,000 unit PO WK 07/23/18 03/20/22 History mcg (50,000 unit) capsule (Vitamin D2) linaclotide 145 mcg capsule 145 mcg PO QAM 09/09/19 03/20/22 History (Linzess) rivaroxaban 20 mg tablet (Xarelto) 20 mg PO QAM 09/09/19 03/20/22 History venlafaxine 150 mg 150 mg PO QAM 09/09/19 03/20/22 History capsule,extended release 24 hr ropinirole 1 mg tablet 1 mg PO TID 03/22/20 03/20/22 History venlafaxine 75 mg capsule,extended 75 mg PO QAM 03/22/20 03/20/22 History release 24 hr alendronate 70 mg tablet 70 mg PO WK 11/18/20 03/20/22 History fentanyl 25 mcg/hr transdermal 25 mcg topical Q72H PRN Pain 02/24/21 03/20/22 History patch lisinopril 40 mg tablet (Zestril) 40 mg PO QAM 02/24/21 03/20/22 History ondansetron 4 mg disintegrating 4 mg PO Q8H PRN nausea and 02/24/21 03/20/22 Rx tablet vomiting #30 tabs amlodipine 5 mg tablet 5 mg PO DAILY 03/20/22 03/20/22 History bupropion HCl 150 mg tablet,12 hr 150 mg PO BID 03/20/22 03/20/22 History sustained-release levothyroxine 88 mcg tablet 88 mcg PO DAILY 03/20/22 03/20/22 History oxycodone 10 mg tablet 5 mg PO Q4 PRN Pain 03/20/22 03/20/22 History Patient History Medical History (Updated 03/21/22 @ 10:07 by Peter De Jesus MD) Cancer of colon Cancer of ovary (~2006) Colitis Hypothyroidism Ileostomy in place Pulmonary embolism Restless leg syndrome SBO (small bowel obstruction) Surgical History H/O ileostomy Hx of gastric bypass Family History Father , age 62 of an [place] Heart disease Myocardial infarction Diabetes Mother , age 78 Breast cancer Hypertension Other Cancer Gallbladder disease Social History Smoking Status: Never smoker Hx Alcohol Use: No Hx Substance Use: No Preferred Language: Turkish Communication Ability: Effective Warm In Required: No Beliefs That Will Affect Care: None marital status: Current Living Situation: Spouse current occupational status: unemployed Feels Safe at Home: Yes Safety Concerns: Feels Safe At This Time Assistive Devices: Denture - Upper Review of Systems Constitutional: no fever, no fatigue and no weakness Eyes: no diplopia, no eye pain and no worsening vision Ear, Nose, Mouth, Throat: no ear pain, no tinnitus, no hearing loss, no dizziness, no snoring, no hoarseness and no dysphagia Respiratory: no cough and no dyspnea Cardiovascular: no chest pain, no palpitations and no lightheadedness Gastrointestinal: no abdominal pain, no nausea and no vomiting Genitourinary: no dysuria, no urinary frequency and no urinary incontinence Musculoskeletal: + back pain and + neck pain; no radicular pain, no joint pain and no myalgia Integumentary: no rash and no lesions Neurologic: + localized weakness and + numbness; no gait abnormality, no generalized weakness, no tingling, no tremor(s), no abnormal movements, no headache(s), no abnormal speech, no confusion and no memory loss Psychiatric: + depression; no irritability, no anxiety, no difficulty concentrating, no confusion and no hallucinations Endocrine: no fatigue and no flushing Hematologic / Lymphatic: no easy bleeding and no easy bruising Allergy / Immunological: no urticaria and no problem reported Exam (Neuro) Physical Exam: The patient is right-handed. The patient is awake, alert, and attentive. Speech is normal without any aphasia or dysarthria. The patient can name objects, repeat phrases, and has normal spontaneous speech. Mentation and thought processes are intact, with orientation to person, place and time, and normal fund of knowledge. Attention and concentration are normal. Mood and affect are normal and appropriate. General appearance and grooming are normal. Short and long-term memory are intact. Pupils are 3 mm bilaterally and reactive to light. Extraocular eye muscles are intact without nystagmus. Visual acuity and visual walter seem normal grossly to confrontation. I noted slight drooping of the left upper eyelid ( definitely asymmetric). Patient could not raise that upper lid above the pupil. The patient tells me that this is likely old and she has seen this in the past looking in the mirror. There are no deficits to sensation in the face in all 3 distributions of the fifth cranial nerve bilaterally. Corneal reflexes are positive bilaterally. Facial strength and symmetry was normal bilaterally. Hearing seems normal bilaterally. Palate moves well without asymmetry. There is normal s ternocleidomastoid and trapezius (shoulder shrug) strength bilaterally. Tongue is midline with good strength bilaterally. Neck has a full range of motion without discomfort. There are no cervical bruits bilaterally. There are no cranial or ocular bruits. Heart is without murmur. There is a regular rhythm and rate. Cervical, thoracic, and lumbar spine are nontender to palpation. Gait is narrow based, with good arm swing Head turns, although she has a little bit cautious because of some slight "dizziness". Stands with feet together and eyes open is good. She sways with eyes closed. With outstretched arms there is no drift. There are no resting, postural, or action tremors. There is no ataxia with finger to nose testing. There is good facility in the hands. No other abnormal involuntary movements are noted. Motor strength examination is a little bit difficult because she has giveaway weakness secondary to pain proximally in the right upper extremity. When I work with her specifically on each individual muscle I am convinced that she is strong in the right arm and not weak compared to the left. Otherwise, proximally and distally in all 4 limbs seemed 5/5 diffusely. The limbs have good tone without rigidity or spasticity. There is no atrophy noted in the muscles. Muscle bulk is normal, there is no tenderness to palpation, no myotonia to percussion, and no fasciculations seen. Sensory examination is intact to touch and pin throughout all 4 limbs diffusely. Reflexes are 2/4 in the biceps, triceps, brachioradialis, quadriceps, and Achilles tendons bilaterally. There is no clonus bilaterally. Toes are downgoing with plantar stimulation bilaterally. Peripheral pulses are present and of normal quality distally in all 4 limbs. There is no peripheral edema noted in the limbs. Results & Data ([facility]) Vital Signs (Past 12 Hours) Vital Signs Temp Pulse Pulse Resp BP Pulse Ox O2 Del Method 03/21/22 08:10 36.3 C L 74 18 153/78 H 94 Room Air 03/21/22 07:13 69 03/21/22 04:00 36.7 C 69 18 150/86 H 92 Room Air 03/21/22 00:09 36.8 C 69 18 158/80 H 94 Room Air 03/20/22 22:12 74 PG Care Time/CCT Total # of Minutes Spent Total Time Spent with Patient: Total time spent is greater than 50% in coordination of care (as documented) at patient's floor/unit and/or counseling patient: Coding Level of Care Code 08123 Office/OBS Consult Lvl 5 Diagnoses Pain in right upper arm M79.621 Weakness of right upper extremity R29.898 Dizziness R42 Time Spent (min) 100 Comment Add modifiers as able
--- NOTE | 2022-03-21 14:32 | Hospitalist Progress Note ---
Date of Service March 21, 2022 Assessment & Plan (1) Dizziness: Plan: I suspect this is not related to her right-sided weakness and appears orthostatic in nature. She appears to be improved today with holding her amlodipine. We will continue off amlodipine and get orthostatics. Possibly acutely related to recent diarrheal illness and possibly can go back on amlodipine as an outpatient although would start with half her usual dose at 2.5 mg p.o. daily. She denies a vertiginous sensation to myself and give this has never occurred while lying down I have a low suspicion of peripheral vertigo. (2) Acute right-sided weakness: Plan: Suspected to be an acute on chronic process. Agree with neurology and likely related to her neck. Would recommend she gets nerve conduction studies performed as an outpatient to correlate with her cervical spine MRI to determine treatment for this. MRI cervical spine with and without contrast to assess for metastatic disease. (3) Fibromuscular dysplasia of carotid artery: Plan: Renal artery ultrasound normal. (4) Ovarian cancer: Plan: - Metastatic to colon, stomach, abdominal wall, receiving monthly injections at [facility]. - Chronic pain: fentanyl patches, oxycodone. (5) History of pulmonary embolus (PE): Plan: Continue Xarelto 20 mg p.o. daily (6) Hypothyroidism: Plan: Continue levothyroxine 88 mcg daily (7) Restless leg syndrome: Plan: Continue ropinirole 1 mg 3 times daily (8) Hypertension: Plan: Hold amlodipine as above, continue lisinopril 40 mg p.o. every morning (9) Depression: Plan: Continue venlafaxine 225 mg daily and bupropion 150 mg p.o. twice daily Plan VTE prophylaxis -Xarelto Diet -heart healthy Disposition - Continue to observation on [facility] telemetry Admission and Anticipated Discharge Date Admission Date: March 20, 2022 Subjective Discussed symptoms of dizziness and arm pain, reduced strength in her right hand. Appears these are separate symptoms with the new symptom of dizziness since Thursday. We discussed different kinds of dizziness vertigo vs. orthostasis vs. decreased balance. She feels she is mostly having decreased balance which has improved today, however she also describes this as being very orthostatic with it only happening when standing. Amlodipine has been discontinued which may explain why her symptoms have improved today. She does report having a diarrheal illness last week. Her diarrhea has since completely resolved. Otherwise unclear why her dizziness suddenly started on Thursday. Review of Systems Review of Systems: All systems reviewed & are unremarkable except as noted in Subjective Physical Exam Constitutional: WD/WN, vitals as above Eyes: PERRL and EOM intact bilaterally Respiratory: normal respiratory effort, lungs clear to auscultation Cardiovascular: RRR, no murmur, no edema Gastrointestinal (Abdomen): normal bowel sounds, soft, nontender, no hep atosplenomegaly Musculoskeletal: pain in right upper extremity Neurologic: moves all extremities and awake; no focal motor deficits and not confused Speech / Cognition: normal speech Motor/Sensory: no pronator drift Psychiatric: A+Ox3, euthymic affect Results & Data Results & Data ([facility]) Vital Signs (Past 12 Hours) Vital Signs Temp Pulse Pulse Resp BP Pulse Ox O2 Del Method 03/21/22 12:11 36.5 C 67 20 149/83 H 94 Room Air 03/21/22 08:10 36.3 C L 74 18 153/78 H 94 Room Air 03/21/22 07:13 69 03/21/22 04:00 36.7 C 69 18 150/86 H 92 Room Air PG Care Time/CCT Total # of Minutes Spent Total Time Spent with Patient: Total time spent is greater than 50% in coordination of care (as documented) at patient's floor/unit and/or counseling patient: Coding Level of Care Code 36924 Subseq Obs Care Lvl 3 Diagnoses Dizziness R42 Acute right-sided weakness R53.1 Fibromuscular dysplasia of carotid artery I77.3 Ovarian cancer C56.9 History of pulmonary embolus (PE) Z86.711 Hypothyroidism E03.9 Restless leg syndrome G25.81 Hypertension I10 Depression F32.A
--- NOTE | 2022-03-21 15:12 | XRay Report ---
XR chest 1V portable CLINICAL HISTORY: dizziness ?PNA TECHNIQUE: Single frontal radiograph of the chest was obtained. Comparison: Comparison is made to rib series 11/18/[address] chest 12/30/2021 FINDINGS: A port catheter is seen. The cardiomediastinal silhouette is normal. The lungs are clear. No evidence of pleural effusion or pneumothorax. Multiple healed rib fractures are noted. IMPRESSION: No acute abnormalities and in particular no evidence of pneumonia. ACT 112: Negative or not required by law. Electronically signed by: Cortez Sol M.D. 03/21/2022 3:11 PM
[2022-03-21] MEDS ORDERED: LORazepam 0.5 MG in SYRINGE 0 ML IV PRN (17:45)
[2022-03-21] MEDS ORDERED: GADOBUTROL 65ML VIAL IV ONE (18:46)
--- NOTE | 2022-03-21 23:56 | Magnetic Resonance Report ---
CLINICAL HISTORY: right upper extremity weakness ?metastatic disease TECHNIQUE: MRI of the cervical spine is performed utilizing various T1 and T2 sequences in the axial and sagittal planes. IV contrast was administered for this examination. Comparison: Comparison is made to MRI cervical spine 03/20/2022 FINDINGS: Exam is highly limited by patient motion. Cervical cord signal and caliber are normal. No intracanali cular mass or fluid collection is present. Paravertebral soft tissues are unremarkable. No suspicious marrow replacement within the cervical spine is present. There is no fracture. Alignment is anatomic . Paravertebral soft tissues are unremarkable. C2-C3: Central canal and right neural foramen are patent. There is mild narrowing of the left neural foramen due to facet arthrosis. C3-C4: There is mild disc space narrowing with disc bulge. This slightly effaces the ventral thecal s ac with mild central canal stenosis. Moderate to severe left and moderate right neural foraminal sten osis is present due to facet arthrosis and uncovertebral hypertrophy. C4-C5: There is minimal posterior disc osteophyte complex. This effaces the ventral thecal sac. No si gnificant central canal stenosis. Moderate to severe left neural foraminal stenosis is present. There is mild right neural foraminal stenosis. C5-C6: Mild central canal stenosis. There is mild left neural foraminal stenosis. Right neural forame n is patent. C6-C7: Posterior disc osteophyte complex effaces the ventral thecal sac. There is mild central canal stenosis. Neural foramen are patent. C7-T1: Central canal and neural foramen are patent. IMPRESSION: Mild multilevel degenerative changes as above. No abnormality in particular no abnormal enhancement w ithin the limits of a motion compromised study. ACT 112: Negative or not required by law. Electronically signed by: Cortez Sol M.D. 03/21/2022 11:54 PM
[2022-03-22] MEDS: oxyCODONE HCL IR 5 MG TAB (IMMEDIATE RELEASE) PO PRN ×3 (02:10→12:08)
[2022-03-22] MEDS: LEVOTHYROXINE SODIUM 50 MCG TABLET PO SCH (05:15)
[2022-03-22 06:32] LABS: Calcium 8.1 mg/dl (8.5-10.1); Creatinine Clr Calc Pharmacy 75.3 ml/min; Est GFR (African American) 101.3 ml/min; Est GFR (Non-African American) 87.4 ml/min; Potassium 3.3 mmol/L (3.5-5.1)
[2022-03-22 06:33] LABS: Basophils # (auto) 0.05 K/uL (0-0.2); Basophils % (auto) 0.7 %; Eosinophils # (auto) 0.26 K/uL (0-0.50); Eosinophils % (auto) 3.7 %; Hematocrit (blood only) 41.2 % (34.1-44.9); Hemoglobin 13.5 g/dl (12.0-16.0); Immature Granulocytes # (auto) 0.02 K/uL (0.00-0.02); Immature Granulocytes % (auto) 0.3 %; Lymphocytes # (auto) 1.82 K/uL (1.2-3.4); Lymphocytes % (auto) 25.6 %; Mean Corpuscular Hemoglobin 29.5 pg (25.0-34.0); Mean Corpuscular Hgb Conc 32.8 g/dL (32.0-36.0); Mean Corpuscular Volume 90.2 fL (80.0-100.0); Mean Platelet Volume 9.8 fL (9.4-12.3); Monocytes # (auto) 0.82 K/uL (0.24-0.82); Monocytes % (auto) 11.5 %; Neutrophils # (auto) 4.14 K/uL (1.4-6.5); Neutrophils % (auto) 58.2 %; Platelet Count 248 K/uL (130-400); RDW Coefficient of Variation 13.7 % (11.5-14.5); RDW Standard Deviation 45.4 fL (36.4-46.3); Red Blood Count 4.57 M/uL (3.93-5.22); White Blood Count 7.11 K/ul (4.8-10.8)
[2022-03-22] MEDS: VENLAFAXINE HCL XR 75 MG CAPXR PO SCH (07:07)
[2022-03-22] MEDS: CHECK fentaNYL PATCH PLACEMENT SCH ×2 (07:07→15:29)
[2022-03-22] MEDS: LINACLOTIDE 145 MCG CAPSULE PO SCH (07:07)
[2022-03-22] MEDS: lisinopril 40 MG TAB PO SCH (07:07)
[2022-03-22] MEDS: VENLAFAXINE HCL XR 150 MG CAPXR PO SCH (07:08)
[2022-03-22] MEDS: RIVAROXABAN 20 MG TAB PO SCH (07:08)
[2022-03-22] MEDS: rOPINIRole HCL 1 MG TABLET PO SCH ×2 (07:08→15:29)
--- NOTE | 2022-03-22 13:08 | Discharge Summary ---
Date of Service March 22, 2022 Admission HPI Per Admitting Provider Evangelina Lenz is a 61-year-old female with past medical history of PEs, GI bleed, metastatic ovarian cancer, hypothyroidism, RLS, and hypertension who is presenting today with weakness. 2 days ago, she developed right hand weakness/clumsiness and pain when using it. She is also dizzy with ambulation as if she is on the boat and feels like she is rocking back and forth, she is generally off balance. No falls. She has been mildly nauseous with this, no vomiting. She did experience a headache 2 days ago with the onset of symptoms which is unusual for her, but took [id number] medications which alleviated it. She does have chronic pain from her cancer, as well as chronic compression fractures in the lumbar region and also has chronic neck pain. It has not been any better or worse lately. Her neck pain is worse and dizziness exacerbated when moving head left and right. No ringing in ears. No other neuro deficits. Upon presentation, she is mildly hypertensive, his vital signs within normal. Her head CT, as well as head and neck CTA did not show evidence of stroke, hemorrhage, mass-effect, however there is evidence for possible fibromuscular dysplasia. Her labs are unremarkable. Principal Diagnosis Orthostatic hypotension Right upper extremity radiculopathy Discharge Exam Constitutional WD/WN, vitals as above Eyes PERRL and EOM intact bilaterally Respiratory normal respiratory effort, lungs clear to auscultation Cardiovascular RRR, no murmur, no edema Gastrointestinal (Abdomen) normal bowel sounds, soft, nontender, no hepatosplenomegaly Neurologic moves all extremities, + focal motor deficit (Right shoulder abduction 4+, sanitary engineer strength 4) and awake; not confused Speech / Cognition: normal speech Motor/Sensory: no pronator drift Psychiatric A+Ox3, euthymic affect Discharge Data Allergies Allergy/AdvReac Type Severity Reaction Status Date / Time amoxicillin Allergy Mild HIVES Verified 03/20/22 12:52 clavulanic acid Allergy Mild HIVES Verified 03/20/22 12:52 Consultations 03/20/22 12:02 ED Decision to Admit Stat 03/20/22 13:36 Consult Neurology Routine Ordered Studies 03/20/22 09:24 CT angio head wo/w Stat IMPRESSION: 1. There is no hemorrhage, mass effect, or evidence of acute territorial ischemia by CT criteria. 2. Unremarkable CT angiogram of the brain. 3. Imaged portions of the distal cervical internal carotid arteries demonstrate a beaded appearance. The appearance is typical for fibromuscular dysplasia. CT angio neck with con Stat IMPRESSION: No occlusion, hemodynamically significant stenosis, or dissection in the major cervical arteries. 03/20/22 13:36 MR brain wo/w con Routine IMPRESSION: No acute intracranial abnormality. MRI Neck [MR cervical spine wo con] Routine IMPRESSION: 1. No acute findings within the cervical spine by MRI. 2. Mild multilevel degenerative disc disease and severe facet arthrosis within the cervical spine. 3. Mild central canal narrowing at several levels. Moderate to severe multilevel neural foraminal stenosis, as detailed above. US duplex renal artery Routine IMPRESSION: No evidence for renal artery stenosis. 03/21/22 12:39 MRI Cervical [MR cervical spine wo/w con] Routine IMPRESSION: Mild multilevel degenerative changes as above. No abnormality in particular no abnormal enhancement within the limits of a motion compromised study. Hospital Course (1) Dizziness: Evangelina Lenz is a 61 year old female observed in [facility] from March 20 to 2021 due to right upper extremity pain, weakness and dizziness. Suspect her right upper extremity pain and weakness are due to a longer standing nerve compression. Recommend she follows up with nerve conduction studies for this with neurology. Suspect her dizziness is more orthostatic hypotension and symptoms (although still dropping > 20mmHg) resolved with holding her amlodipine. Possibly related to recent diarrheal illness. She was advised to hold lisinopril in addition if she is still symptomatic and dizzy. Stroke work-up was negative. MRI of the cervical spine (although compromised quality due to movement) did not show any metastatic disease. She was advised to follow-up with her primary care physician in the next 1 to 2 weeks for ongoing management of orthostatic hypotension. She should follow-up with nerve conduction studies with neurology regarding her right upper extremity pain and hand weakness. (2) Acute right-sided weakness: (3) Fibromuscular dysplasia of carotid artery: (4) Ovarian cancer: (5) History of pulmonary embolus (PE): (6) Hypothyroidism: (7) Restless leg syndrome: (8) Hypertension: (9) Depression: Total Time Total Time Spent Total Time Spent (In Minutes): 40 Discharge Plan Discharge Items Patient Disposition: Home - Self-Care Reason For Visit: TIA/CVA RULE OUT Discharge Diagnosis: Orthostatic hypotension Right upper extremity radiculopathy Activity: Resume your previous activity Non-emergency contact: Primary Care Provider Call non-emergency contact if: you have any medication questions and your symptoms worsen Follow-up/Referrals: Peter De Jesus MD [Physician] - (Follow up nerve conduction studies for RUE weakness/pain) Arun Chapman [Primary Care Provider] - Diet: Heart Healthy Addtl Attending Provider Instructions: You were observed in [facility] from March 20 to 2021 due to right upper extremity pain, weakness and dizziness. Suspect your right upper extremity pain and weakness are due to a longer standing nerve compression. Recommend follow-up with nerve conduction studies for this with neurology. Suspect your dizziness is more orthostatic hypotension (drop in your blood pressure on standing) related to your blood pressure medication and possible recent diarrheal illness. Amlodipine has been discontinued with improvement. If you continue to feel dizzy recommend discontinuing lisinopril as you remain orthostatic despite stopping the amlodipine although not symptomatic. Stroke work-up was negative. MRI of the cervical spine (although compromised quality due to movement) did not show any metastatic disease. Please follow-up with your primary care physician within the next 1 to 2 weeks for ongoing management of this. Pending Studies at Discharge: No Stand-Alone Forms: My [facility], Smoking Cessation Medications and DC Order Prescriptions: Continued ergocalciferol (vitamin D2) [Vitamin D2] 50,000 unit Capsule 50,000 unit PO WK Rx Instructions: Thursday venlafaxine 150 mg capsule,extended release 24hr 150 mg PO QAM Rx Instructions: take w/ 75 mg Xarelto 20 mg tablet 20 mg PO QAM Linzess 145 mcg capsule 145 mcg PO QAM ropinirole 1 mg tablet 1 mg PO TID venlafaxine 75 mg capsule,extended release 24hr 75 mg PO QAM Rx Instructions: take w/ 150 mg fentanyl 25 mcg/hr patch 72 hour 25 mcg topical Q72H PRN (Reason: Pain) lisinopril [Zestril] 40 mg tablet 40 mg PO QAM ondansetron 4 mg tablet,disintegrating 4 mg PO Q8H PRN (Reason: nausea and vomiting) Qty: 30 0RF bupropion HCl 150 mg tablet sustained-release 12 hr 150 mg PO BID levothyroxine 88 mcg Tablet 88 mcg PO DAILY oxycodone 10 mg tablet 5 mg PO Q4 PRN (Reason: Pain) alendronate 70 mg tablet 70 mg PO WK Rx Instructions: Discontinued amlodipine 5 mg tablet 5 mg PO DAILY Discharge Orders: Discharge Order (Routine); Ordered 03/22/22 Ordered By: Tarik Waller/Other Patient Handouts: Prediabetes, 5 Steps for Eating Healthier Admission Data Admit Date/Time: 03/20/22 12:09 Attending Provider: Tarik Connell Admit Provider: Alessandro Cabrera Primary Care Provider: Arun Chapman Other Providers: Alessandro Cabrera ; Peter De Jesus Other Interventions: Discharge Summary Assessment (RN) Last Done: 03/22/22 14:15 Coding Level of Care Code D/C DAY MANAGEMENT >30 MINS Diagnoses Dizziness R42 Acute right-sided weakness R53.1 Fibromuscular dysplasia of carotid artery I77.3 Ovarian cancer C56.9 History of pulmonary embolus (PE) Z86.711 Hypothyroidism E03.9 Restless leg syndrome G25.81 Hypertension I10 Depression F32.A
[2022-03-22] MEDS ORDERED: HEPARIN 100 UNIT/ML 5ML FLUSH FLUSH PRN (14:24)
[2022-03-24] MEDS ORDERED: ERGOCALCIFEROL 50,000 UNITS 1250 MCG CAP PO SCH (09:00)
== END 2022-03-22 16:08 | disposition home or self-care (01) ==
LOC: ED 08:59 → 2N 08:59 → SUATTDRO 12:09 → 2N 12:58